=== PATIENT | male | born 1975 | race Caucasian/White ===

== ENCOUNTER → 2016-06-13 | Outpatient (CLI) | payer OTHER ==
[~2016-06-13] MED LIST: ACET500C; GABA600T3; HYDR-3716 PO; JANUVIA; JANUVIA OR; LIDO5DIS TD; LISI20TA5; LISINOPRIL/HCTZ; LISINOPRIL/HCTZ PO; LOPR100T OR; METF500T PO; NASAL SPRAY; NEUR300C OR; OXYCONTIN; PREG100CA; RYZOLT; SOMA250T; SOMA350T; SOMA350T PO; TRAM50TA2; TRAM50TA2 OR; VICO5TAB OR; tylenol pm OR
--- NOTE | 2016-06-20 00:35 | ECWPNPC ---
PATIENT NAME: PIERRE RIVAS : 1975 GENDER: MALE VISIT DATE: 06/13/2016 DISCHARGE DATE: 06/13/16 1205 VISIT LOCKED DATE TIME: PHYSICIAN: AKIRA MEDRANO RESOURCE: AKIRA MEDRANO REASON FOR APPOINTMENT 1. LOW BACK PAIN W/C HISTORY OF PRESENT ILLNESS HISTORY OF PRESENT ILLNESS: PAIN THE PATIENT DESCRIBES THE PAIN... 41 YEAR OLD MALE PATIENT WITH HISTORY OF CHRONIC BACK PAIN. PATIENT DESCRIBES THE PAIN TENDER, THROBBING, SORE, ACHING, HAVING IT ALL THE TIME WITH A PAIN SCORE OF 7-9/10. PATIENT WAS HURT IN A WORK RELATED INJURY IN 2003 WHILE WORKING FOR [employer] WHEN HE WAS SHOVELING STONES AND TWISTED AND HURT HIS BACK. SINCE THE ACCIDENT PATIENT HAS HAD 2 BACK SURGERIES WHICH HE STATES DID HELP WITH THE PAIN. MR. RIVAS ALSO RECEIVED PHYSICAL THERAPY IN WHICH HE SAW A BENEFIT. PATIENT IS CURRENTLY USING HYDROCODONE, LIDODERM PATCH, AND TRAMADOL WHICH HE STATES KEEPS HIM FUNCTIONAL AND HELPS WITH THE PAIN. MR. RIVAS STATES THAT HE WOULD LIKE TO MOVE FORWARD WITH AN INJECTION AT THIS TIME THE INJECTIONS AID SIGNIFICANTLY WITH PAIN RELIEF AND INCREASES THE PATIENTS MOBILITY AND FUNCTIONALITY. PATIENT DENIES UNEXPLAINABLE WEIGHT LOSS, FEVER, CHILLS, NEW CHANGES ON HIS URINARY OR BOWEL CONTROL. FALL RISK SCREENING: SCREENING :NO FALLS IN THE PAST YEAR CURRENT MEDICATIONS TAKING METFORMIN HCL 500 MG TABLET 1 TABLET WITH MEALS ORALLY TWICE A DAY, NOTES: 02-21-16 2100 TAKING LOPRESSOR 100 MG TABLET 1 TABLET ORALLY ONCE DAILY, NOTES: 02-21-16 2100 TAKING LISINOPRIL-HYDROCHLOROTHIAZIDE 20-12.5 MG TABLET 1 TABLET ORALLY ONCE A DAY, NOTES: 02-21-16 2100 TAKING NASAL SALINE 0.65 % SOLUTION 2 DROPS IN EACH NOSTRIL NEEDED NASALLY EVERY 2 HRS, NOTES: 02-22-16 TAKING TYLENOL PM EXTRA STRENGTH 500-25 MG TABLET 1 TABLET AT BEDTIME NEEDED ORALLY ONCE A DAY, NOTES: 02-21-16 2100 TAKING TRAMADOL HCL 50 MG TABLET 1-2 TAB ORALLY Q4-6 HR MDD 4, NOTES: 02-21-16 TAKING VALIUM 10 MG TABLET 1 TABLET NEEDED ORALLY 1 TAB 1HR PRE PROC. MDD1 TAKING OXYCODONE HCL 10 MG TABLET 3 ORALLY 3 TAB 1HR PRE PROC. MDD3 TAKING LIDODERM 5 % PATCH 1 PATCH TO INTACT SKIN REMOVE AFTER 12 HOURS EXTERNALLY LOW BACK ONCE A DAY ON12 HR OFF 12H, NOTES: COUPLE OF DAYS AGO TAKING HYDROCODONE-ACETAMINOPHEN 7.5-325 MG TABLET 1-2 ORALLY Q4-6H MDD8, NOTES: [id number] MEDICATION LIST REVIEWED AND RECONCILED WITH THE PATIENT PAST MEDICAL HISTORY POST LAMINECTOMY SYNDROME HYPERTENSION ALLERGIES CATS, RAGWEED SURGICAL HISTORY BACK SURGERY (2) CYST RENMOVED FROM LEFT WRIST 1992 REPAIR TESTICLE 1989 FAMILY HISTORY NO FAMILY HISTORY DOCUMENTED. SOCIAL HISTORY GENERAL: TOBACCO USE ARE YOU A:NONSMOKER LEARNING BARRIERS / SPECIAL NEEDS ORIENTED TO PLAN OF CARE: PATIENT, PAIN MANAGEMENT PATIENT, ORIENTED TO PLAN OF CARE: PATIENT, PAIN MANAGEMENT PATIENT. NEW PATIENT PAIN DIARY TODAY'S VISITNOTES FROM 0-10, WHAT LEVEL IS YOUR PAIN TODAY?0 PAIN CLINIC PFS, CLERGY, PUBLIC HEALTH REFERRALS PFS REFERRAL NEEDED?NO CLERGY REFERRAL NEEDED?NO PUBLIC HEALTH REFERRAL NEEDED?NO WAS THE PROVIDER NOTIFIED OF ANY PERTINENT INFO?NO PFS REFERRAL NEEDED?NO CLERGY REFERRAL NEEDED?NO PUBLIC HEALTH REFERRAL NEEDED?NO WAS THE PROVIDER NOTIFIED OF ANY PERTINENT INFO?NO HOSPITALIZATION/MAJOR DIAGNOSTIC PROCEDURE NO HOSPITALIZATION HISTORY. REVIEW OF SYSTEMS CONSTITUTIONAL: ANY CHANGE IN YOUR MEDICAL CONDITION? NO . CHILLS NO . FEVER NO . INFECTION: DO YOU HAVE NEW INFECTIONS? NO . DO YOU HAVE HISTORY OF MRSA? NO . MUSCULOSKELETAL: ANY NEW PATTERNS OF PAIN OR NUMBNESS? YES, AFTER FALLING WHEN LAID DOWN, HAD JOLT LIKE PAIN ACROSS LOW BACK. . GASTROENTEROLOGY: ANY NEW CHANGE IN BOWEL CONTROL? NO . GENITOURINARY: ANY NEW CHANGE IN BLADDER CONTROL? NO . IS THERE A CHANCE YOU COULD BE ? NO . HEMATOLOGY/LYMPH: DO YOU TAKE ANY BLOOD THINNERS? (FOR EXAMPLE- COUMADIN, PLAVIX, AGGRENOX, PLATEL, PRADAXA, OR XARELTO) NO . WHEN WAS YOUR LAST DOSE? DATE: TIME: . NEUROLOGY: HAVE YOU FALLEN IN THE PAST 6 MONTHS? YES, ON THE WEEKEND . ANY NEW EXTREMITY NUMBNESS OR WEAKNESS? NO . CARDIOLOGY: DO YOU HAVE A PACEMAKER OR DEFIBRILLATOR? NO . RESPIRATORY: HAVE YOU BEEN SICK IN THE PAST WEEK? NO . FEVER NO . FLU LIKE SYMPTOMS? NO . COUGH NO . INTEGUMENTARY: DO YOU HAVE ANY RASHES OR OPEN SORES? NO . ALLERGIC/IMMUNO: ARE YOU ALLERGIC TO SHELLFISH OR IV DYE? NO . ANY NEW ALLERGIES? NO . PSYCHIATRIC: DO YOU HAVE THOUGHTS OF HURTING YOURSELF OR SOMEONE ELSE? NO . ARE YOU ABUSED, NEGLECTED, OR IN AN UNSAFE ENVIRONMENT? NO . ENDOCRINOLOGY: ARE YOU DIABETIC? YES . OTHER: DO YOU NEED ANY PRESCRIPTIONS? YES . IF YES, PLEASE LIST: HYDROCODONE . ANY NEW PROBLEMS WITH YOUR MEDICATIONS? NO . WHEN DID YOU LAST EAT? ____ . WHEN DID YOU LAST DRINK? ____ . WHAT DID YOU LAST DRINK? ____ . NAME OF PERSON DRIVING YOU HOME? ____ . DO YOU HAVE ANY OTHER QUESTIONS OR CONCERNS NO . REVIEWED BY: PROVIDER: AKIRA MEDRANO MD . VITAL SIGNS WT 185 LBS, HT 71", BMI 25.80 INDEX, BP 137/80 MM HG, HR 86 /MIN, RR 16 /MIN, TEMP 96.1 F, OXYGEN SAT % 98%, NA INITIALS SC 09:56, REVIEWED BY: CM. EXAMINATION : PATIENT IS ALERT O X 3 AND COOPERATIVE. PATIENT WALKS WITH WIDE STANCE. PATIENT ABLE TO FLEX 20 DEGREES AND UNABLE TO EXTEND HIS BACK. TENDERNESS IN THE LOWER BACK AND PARASPINAL MUSCLE GROUP. BOTH LEGS VERY WEAK BUT RIGHT LEG IS WEAKER THEN THE LEFT AT EXTENSION AND FLEXION. PENDING LUMBAR MRI. ASSESSMENTS POST LAMINECTOMY SYNDROME - M96.1 (PRIMARY) SACROILIITIS, NOT ELSEWHERE CLASSIFIED - M46.1 TREATMENT POST LAMINECTOMY SYNDROME REFILL TRAMADOL HCL TABLET, 50 MG, 1-2 TAB, ORALLY, Q4-6 HR MDD 4, 30 DAY(S), 120, REFILLS 5, NOTES: 02-21-16 REFILL HYDROCODONE-ACETAMINOPHEN TABLET, 7.5-325 MG, 1-2, ORALLY, Q4-6H MDD8, 30 DAY(S), 240, REFILLS 0, NOTES: 02-21-16 2100 REFILL LIDODERM PATCH, 5 %, 1 PATCH TO INTACT SKIN REMOVE AFTER 12 HOURS, EXTERNALLY LOW BACK, ONCE A DAY ON12 HR OFF 12H, 30 DAY(S), 30, REFILLS 3, NOTES: COUPLE OF DAYS AGO NOTES: WE DISCUSSED SEVERAL ISSUES WITH MR. RIVAS'S PAIN MANAGEMENT CASE. AT THIS TIME THE PATIENT WILL RECEIVE A REFILL ON HIS MEDICATIONS AND CONTINUE WITH THE SAME MEDICATION REGIME. PATIENT DENIES ABUSE OF ANY MEDIATION, DENIES USE OF ILLEGAL SUBSTANCES, AND STATES THAT HE IS ONLY USING THE MEDICATION FOR PAIN MANAGEMENT. URINE TOXICOLOGY DONE ON 06/11/15 SHOWS CONSISTENT RESULTS WITH THE PATIENTS MEDICATION LIST. AT THIS TIME THE PATIENT WOULD LIKE TO MOVE FORWARD WITH INJECTIONS HE HAS SIGNIFICANT PAIN RELIEF. I WOULD LIKE THE PATIENT TO RECEIVE A LUMBAR MRI PRIOR TO DO ANY INJECTION. HOWEVER, BASED ON WHERE THE PATIENT STATES THAT HIS PAIN IS LOCATED I BELIEVE THE PATIENT WOULD BE A GOOD CANDIDATE FOR A SACROILIAC JOINT BLOCK. WE DISCUSSED THE RISKS, BENEFITS, AND ALTERNATIVES OF THE INJECTION AND THE PATIENT WOULD LIKE TO PROCEED. I WOULD ALSO LIKE THE PATIENT TO BEGIN PHYSICAL THERAPY DUE TO THE PATIENT STATING HE SAW A BENEFIT WHILE GOING TO PHYSICAL THERAPY. PATIENT WILL RETURN IN 3 WEEKS FOR A MEDICATION REFILL AND TO DISCUSS HOW THE PHYSICAL THERAPY HAS AIDED THE PATIENT IN PAIN RELIEF. INSTRUCTIONS WERE GIVEN, QUESTIONS WERE ANSWERED, PATIENT REPORTS UNDERSTANDING AND AGREES WITH THE PLAN. I, POLO BOSS, DOCUMENTED THE ABOVE INFORMATION ACTING A SCRIBE FOR DR. MEDRANO. I HAVE REVIEWED THE ABOVE DOCUMENT, WRITTEN BY POLO RICHARDSON AND I VERIFY THAT IT IS ACCURATE. OTHERS REFILL TYLENOL PM EXTRA STRENGTH TABLET, 500-25 MG, 1 TABLET AT BEDTIME NEEDED, ORALLY, ONCE A DAY, NOTES: 02-21-16 2100 PROCEDURES PN WORKMANS' COMP OPINION IN YOUR OPINION, WAS THE INCIDENT THAT THE PATIENT DESCRIBED THE COMPETENT MEDICAL CAUSE OF THIS INJURY/ILLNESS? YES ARE THE PATIENT'S COMPLAINTS CONSISTENT WITH HIS/HER HISTORY OF THE INJURY/ILLNESS? YES IS THE PATIENT'S HISTORY OF THE INJURY/ILLNESS CONSISTENT WITH YOUR OBJECTIVE FINDING? YES WHAT IS THE PERCENTAGE OF TEMPORARY IMPAIRMENT? MODERATE TO MARKED = 66.7% IS THE PATIENT WORKING? NO DOCTOR ON SITE: AKIRA PINK MD PROCEDURE CODES FA211 ESTABILISHED PATIENT [facility] FACILITY CHARGE G8427 DOC MEDS VERIFIED W/PT OR RE G8730 PAIN ASSESS POS TOOL F/U PLAN DOC FOLLOW UP 3 WEEKS ELECTRONICALLY SIGNED BY AKIRA MEDRANO MD ON 06/19/2016 AT 06:21 PM EST DISCLAIMER : THIS IS A VISIT SUMMARY EXTRACTED FROM THE [employer] CHART. IT IS NOT A COPY OF THE [employer] PROGRESS NOTE. KEMI
== END ==
LOC: M PAIN 09:40
PROVIDERS: ATTEND Anesthesiology
DX: Z09 Encounter for follow-up examination after completed treatment for conditions other than malignant neoplasm (principal); G89.29 Other chronic pain; M96.1 Postlaminectomy syndrome, not elsewhere classified; M46.1 Sacroiliitis, not elsewhere classified; I10 Essential (primary) hypertension; E11.9 Type 2 diabetes mellitus without complications; J30.1 Allergic rhinitis due to pollen; J30.81 Allergic rhinitis due to animal (cat) (dog) hair and dander; Z79.84 Long term (current) use of oral hypoglycemic drugs; Z79.891 Long term (current) use of opiate analgesic; Z79.899 Other long term (current) drug therapy

== ENCOUNTER → 2016-08-14 | Outpatient (CLI) | payer OTHER ==
--- NOTE | 2016-08-21 00:41 | ECWPNPC ---
PATIENT NAME: PIERRE RIVAS : 1975 GENDER: MALE VISIT DATE: 08/14/2016 DISCHARGE DATE: 08/14/16 1544 VISIT LOCKED DATE TIME: PHYSICIAN: AKIRA MEDRANO RESOURCE: AKIRA MEDRANO REASON FOR APPOINTMENT 1. W/C HISTORY OF PRESENT ILLNESS HISTORY OF PRESENT ILLNESS: PAIN THE PATIENT DESCRIBES THE PAIN... 41 YEAR OLD MALE PATIENT WITH HISTORY OF CHRONIC BACK PAIN. PATIENT DESCRIBES THE PAIN ACHING, SHARP, STABBING, TENDER, THROBBING, SORE, SHOOTING, AND HAVING IT ALL THE TIME WITH A PAIN SCORE OF 8/10 ON TODAY'S VISIT. 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 PATIENT REPORTS THAT HE HAS HAD TWO BACK SURGERIES ONE YEAR APART AND IT DOES NOT REALLY WORK, AND ONE OF THE SURGERIES HE HAD A HYBRID FUSION OF L4-L5. PATIENT REPORTS THAT HE HAS HAD PHYSICAL THERAPY IN THE PAST AND HE SAW AN IMPROVEMENT IN HIS QUALITY OF LIFE, PATIENT NOTES THAT DOING DAILY ACTIVITIES WAS EASIER WITH LESSER PAIN AND IN COMBINATION WITH INJECTIONS HE WAS ABLE TO DECREASE HIS MEDICATION INTAKE. PATIENT REPORTS THAT HE SOMETIMES HAS DIFFICULTIES SLEEP AT NIGHT AND STAYING ASLEEP. PATIENT STATES THAT SINCE WORKERS COMP HAS BEEN DENYING THE INJECTIONS HIS PAIN HAS INCREASED AND HIS MEDICATION INTAKE HAS GONE UP. PATIENT STATES THAT ONCE HE COULD GET INJECTIONS AGAIN, THE INJECTIONS GREATLY REDUCE HIS PAIN, HE WOULD LIKE TO BEGIN REDUCING HIS MEDICATIONS INTAKE. PATIENT REPORTS THAT HE HAS AN UPCOMING APPOINTMENT TO GET THE MRI DONE, BUT HE WAS INFORMED BY THE MRI FACILITY THAT HE NEEDS LAB WORK FIRST, DUE TO HIS DIABETES AND HIGH PRESSURE. PATIENT DENIES UNEXPLAINABLE WEIGHT LOSS, FEVER, CHILLS, NEW CHANGES ON HIS URINARY OR BOWEL CONTROL. FALL RISK SCREENING: SCREENING :NO FALLS IN THE PAST YEAR CURRENT MEDICATIONS TAKING METFORMIN HCL 500 MG TABLET 1 TABLET WITH MEALS ORALLY TWICE A DAY TAKING LOPRESSOR 100 MG TABLET 1 TABLET ORALLY ONCE DAILY TAKING LISINOPRIL-HYDROCHLOROTHIAZIDE 20-12.5 MG TABLET 1 TABLET ORALLY ONCE A DAY TAKING NASAL SALINE 0.65 % SOLUTION 2 DROPS IN EACH NOSTRIL NEEDED NASALLY EVERY 2 HRS TAKING TYLENOL PM EXTRA STRENGTH 500-25 MG TABLET 1 TABLET AT BEDTIME NEEDED ORALLY ONCE A DAY TAKING TRAMADOL HCL 50 MG TABLET 1-2 TAB ORALLY Q4-6 HR MDD 4 TAKING LIDODERM 5 % PATCH 1 PATCH TO INTACT SKIN REMOVE AFTER 12 HOURS EXTERNALLY LOW BACK ONCE A DAY ON12 HR OFF 12H TAKING HYDROCODONE-ACETAMINOPHEN 7.5-325 MG TABLET 1-2 ORALLY Q4-6H MDD8 NOT-TAKING VALIUM 10 MG TABLET 1 TABLET NEEDED ORALLY 1 TAB 1HR PRE PROC. MDD1 NOT-TAKING OXYCODONE HCL 10 MG TABLET 3 ORALLY 3 TAB 1HR PRE PROC. MDD3 MEDICATION LIST REVIEWED AND RECONCILED WITH THE PATIENT PAST MEDICAL HISTORY POST LAMINECTOMY SYNDROME HYPERTENSION ALLERGIES CATS, RAGWEED SURGICAL HISTORY BACK SURGERY (2) CYST RENMOVED FROM LEFT WRIST 1992 REPAIR TESTICLE 1989 FAMILY HISTORY NO FAMILY HISTORY DOCUMENTED. SOCIAL HISTORY GENERAL: TOBACCO USE ARE YOU A:NONSMOKER LEARNING BARRIERS / SPECIAL NEEDS ORIENTED TO PLAN OF CARE: PATIENT, PAIN MANAGEMENT PATIENT, ORIENTED TO PLAN OF CARE: PATIENT, PAIN MANAGEMENT PATIENT. NEW PATIENT PAIN DIARY TODAY'S VISITNOTES FROM 0-10, WHAT LEVEL IS YOUR PAIN TODAY?0 PAIN CLINIC PFS, CLERGY, PUBLIC HEALTH REFERRALS PFS REFERRAL NEEDED?NO CLERGY REFERRAL NEEDED?NO PUBLIC HEALTH REFERRAL NEEDED?NO WAS THE PROVIDER NOTIFIED OF ANY PERTINENT INFO?NO PFS REFERRAL NEEDED?NO CLERGY REFERRAL NEEDED?NO PUBLIC HEALTH REFERRAL NEEDED?NO WAS THE PROVIDER NOTIFIED OF ANY PERTINENT INFO?NO HOSPITALIZATION/MAJOR DIAGNOSTIC PROCEDURE NO HOSPITALIZATION HISTORY. REVIEW OF SYSTEMS CONSTITUTIONAL: ANY CHANGE IN YOUR MEDICAL CONDITION? NO . CHILLS NO . FEVER NO . INFECTION: DO YOU HAVE NEW INFECTIONS? NO . DO YOU HAVE HISTORY OF MRSA? NO . MUSCULOSKELETAL: ANY NEW PATTERNS OF PAIN OR NUMBNESS? NO . GASTROENTEROLOGY: ANY NEW CHANGE IN BOWEL CONTROL? NO . GENITOURINARY: ANY NEW CHANGE IN BLADDER CONTROL? NO . IS THERE A CHANCE YOU COULD BE ? NO . HEMATOLOGY/LYMPH: DO YOU TAKE ANY BLOOD THINNERS? (FOR EXAMPLE- COUMADIN, PLAVIX, AGGRENOX, PLATEL, PRADAXA, OR XARELTO) NO . WHEN WAS YOUR LAST DOSE? DATE: TIME: . NEUROLOGY: HAVE YOU FALLEN IN THE PAST 6 MONTHS? YES . ANY NEW EXTREMITY NUMBNESS OR WEAKNESS? NO . CARDIOLOGY: DO YOU HAVE A PACEMAKER OR DEFIBRILLATOR? NO . RESPIRATORY: HAVE YOU BEEN SICK IN THE PAST WEEK? NO . FEVER NO . FLU LIKE SYMPTOMS? NO . COUGH NO . INTEGUMENTARY: DO YOU HAVE ANY RASHES OR OPEN SORES? NO . ALLERGIC/IMMUNO: ARE YOU ALLERGIC TO SHELLFISH OR IV DYE? NO . ANY NEW ALLERGIES? NO . PSYCHIATRIC: DO YOU HAVE THOUGHTS OF HURTING YOURSELF OR SOMEONE ELSE? NO . ARE YOU ABUSED, NEGLECTED, OR IN AN UNSAFE ENVIRONMENT? NO . ENDOCRINOLOGY: ARE YOU DIABETIC? YES . OTHER: DO YOU NEED ANY PRESCRIPTIONS? YES . IF YES, PLEASE LIST: HYDROCODONE . ANY NEW PROBLEMS WITH YOUR MEDICATIONS? NO . WHEN DID YOU LAST EAT? ____ . WHEN DID YOU LAST DRINK? ____ . WHAT DID YOU LAST DRINK? ____ . NAME OF PERSON DRIVING YOU HOME? ____ . DO YOU HAVE ANY OTHER QUESTIONS OR CONCERNS NO . REVIEWED BY: PROVIDER: AKIRA MEDRANO MD . VITAL SIGNS WT 185.0 LBS, HT 71", BMI 25.80 INDEX, BP 141/97 MM HG, HR 76 /MIN, RR 16 /MIN, TEMP 98.7 F, OXYGEN SAT % 97, NA INITIALS TL 1334, REVIEWED BY: CM. EXAMINATION : PATIENT IS ALERT O X 3 AND COOPERATIVE. PATIENT HAS TENDERNESS IN THE SACROILIAC PARASPINAL MUSCLE GROUP. FABERE IS POSITIVE IN THE RIGHT AND LEFT LEGS. BOTH LEGS VERY WEAK BUT RIGHT LEG IS WEAKER THAN THE LEFT AT EXTENSION AND FLEXION. ASSESSMENTS POST LAMINECTOMY SYNDROME - M96.1 (PRIMARY) SACROILIITIS, NOT ELSEWHERE CLASSIFIED - M46.1 SHELTER (CURRENT) USE OF OPIATE ANALGESIC - Z79.891 TREATMENT POST LAMINECTOMY SYNDROME REFILL TRAMADOL HCL TABLET, 50 MG, 1-2 TAB, ORALLY, Q4-6 HR MDD 4, 30 DAY(S), 120, REFILLS 0 REFILL HYDROCODONE-ACETAMINOPHEN TABLET, 7.5-325 MG, 1-2, ORALLY, Q4-6H MDD8 PRN FOR PAIN, 30 DAY(S), 240, REFILLS 0 REFILL LIDODERM PATCH, 5 %, 1 PATCH TO INTACT SKIN REMOVE AFTER 12 HOURS, EXTERNALLY LOW BACK, ONCE A DAY ON12 HR OFF 12H, 30 DAY(S), 30, REFILLS 3 NOTES: WE DISCUSSED SEVERAL ISSUES WITH MR. RIVAS'S PAIN MANAGEMENT CASE. I WAS WITH THE PATIENT MORE THAN 35 MINUTES ON TODAY'S ENCOUNTER, MORE THAN HALF THE TIME WAS DEDICATED TO DISCUSSING ALTERNATIVES, COUNSELING, AND PAIN MEDICATION MANAGEMENT. PATIENT BROUGHT HIS MEDICATION BOTTLES ON TODAY'S VISIT. AT THIS TIME I WILL REFILL TRAMADOL, HYDROCODONE, AND LIDODERM PATCH TODAY, PATIENT IS USING THIS MEDICATIONS FOR SOMATIC PAIN. REVIEWED WITH PATIENT THE POTENTIAL RISK OF INCREASED SEDATION, RESPIRATORY SUPPRESSION AND WITH THE COMBINATION OF ALCOHOL, BENZODIAZEPINE, AND OPIOID MEDICATIONS. PATIENT STATES HE UNDERSTANDS THIS RISK AND WISHES TO CONTINUE WITH THERAPY. PATIENT STATES THAT HE IS USING THE MEDICATION INTENDED FOR PAIN MANAGEMENT. AFTER EXAMINING THE PATIENT SHE IS A GOOD CANDIDATE FOR A BILATERAL SIJ, WE DISCUSSED THE RISK, BENEFITS, AND ALTERNATIVES AND THE PATIENT WOULD LIKE TO PROCEED. PATIENT WILL BE BOOKED PENDING APPROVAL. I DISCUSSED WITH THE PATIENT IN DETAIL ABOUT THE POSSIBILITY OF A DCS, PATIENT STATED THAT HE IS INTERESTED AND WILL LIKE TO DO SOME RESEARCH INTO THIS AND DISCUSS IT WITH HIS . DUE TO PHYSICAL THERAPY HELPING THE PATIENT I WILL ORDER PT FOR HIM TODAY, I WOULD LIKE THE PATIENT TO DO IT FOR 6 WEEKS 3 TIMES A WEEK. INFORMED THE PATIENT THAT I WILL NEEDS TO REQUEST AUTHORIZATION FOR IT FIRST. UTOX DONE ON 06/12/2015 SHOWS CONSISTENT RESULTS WITH THAT WAS PRESCRIBED. I WILL ORDER ANOTHER UTOX FOR THE PATIENT TODAY. , INSTRUCTIONS WERE GIVEN, QUESTIONS WERE ANSWERED, PATIENT REPORTS UNDERSTANDING AND AGREES WITH THE PLAN. I, NICOLASA AVERY, DOCUMENTED THE ABOVE INFORMATION ACTING A SCRIBE FOR DR. MEDRANO. I HAVE REVIEWED THE ABOVE DOCUMENT, WRITTEN BY NICOLASA RICHARDSON AND I VERIFY THAT IT IS ACCURATE. PROCEDURES PN WORKMANS' COMP OPINION IN YOUR OPINION, WAS THE INCIDENT THAT THE PATIENT DESCRIBED THE COMPETENT MEDICAL CAUSE OF THIS INJURY/ILLNESS? YES ARE THE PATIENT'S COMPLAINTS CONSISTENT WITH HIS/HER HISTORY OF THE INJURY/ILLNESS? YES IS THE PATIENT'S HISTORY OF THE INJURY/ILLNESS CONSISTENT WITH YOUR OBJECTIVE FINDING? YES WHAT IS THE PERCENTAGE OF TEMPORARY IMPAIRMENT? MODERATE TO MARKED = 66.7% IS THE PATIENT WORKING? NO DOCTOR ON SITE: AKIRA PINK MD PROCEDURE CODES FA211 ESTABILISHED PATIENT [facility] FACILITY CHARGE G8730 PAIN ASSESS POS TOOL F/U PLAN DOC G8427 DOC MEDS VERIFIED W/PT OR RE DISPOSITION & COMMUNICATION FOLLOW UP [facility] PENDING APPROVAL ELECTRONICALLY SIGNED BY AKIRA MEDRANO MD ON 08/18/2016 AT 05:06 PM EDT DISCLAIMER : THIS IS A VISIT SUMMARY EXTRACTED FROM THE [employer] CHART. IT IS NOT A COPY OF THE [employer] PROGRESS NOTE. KEMI
== END | disposition home or self-care (01) ==
LOC: M PAIN 13:20
PROVIDERS: ATTEND Anesthesiology
DX: Z09 Encounter for follow-up examination after completed treatment for conditions other than malignant neoplasm (principal); G89.29 Other chronic pain; M96.1 Postlaminectomy syndrome, not elsewhere classified; M46.1 Sacroiliitis, not elsewhere classified; I10 Essential (primary) hypertension; E11.9 Type 2 diabetes mellitus without complications; Z79.899 Other long term (current) drug therapy; Z79.84 Long term (current) use of oral hypoglycemic drugs

== ENCOUNTER → 2016-08-15 | Outpatient (CLI) | payer OTHER, MEDICARE ==
[2016-08-15 12:15] LABS: BLOOD UREA NITROGEN 12 MG/DL (7-18); CREATININE FOR GFR 0.89 MG/DL (0.70-1.30); DIGOXIN LEVEL 0.1 NG/ML (0.5-2.0); GLOMERULAR FILTRATION RATE > 60.0 (>60)
== END ==
LOC: M LAB 10:52
PROVIDERS: ATTEND Anesthesiology
DX: Z79.01 Long term (current) use of anticoagulants (principal)

== ENCOUNTER → 2016-11-14 | Outpatient (CLI) | payer OTHER ==
[~2016-11-14] MED LIST changes: -METF500T PO; +METF500T13 PO
--- NOTE | 2016-11-25 23:34 | ECWPNPC ---
PATIENT NAME: PIERRE RIVAS : 1975 GENDER: MALE VISIT DATE: 11/14/2016 DISCHARGE DATE: 11/14/16 1623 VISIT LOCKED DATE TIME: PHYSICIAN: AKIRA MEDRANO RESOURCE: AKIRA MEDRANO REASON FOR APPOINTMENT 1. WC HISTORY OF PRESENT ILLNESS GENERAL: 41 YEAR OLD MALE PATIENT WITH HISTORY OF CHRONIC BACK PAIN. PATIENT DESCRIBES THE PAIN ACHING, SHARP, STABBING, TENDER, THROBBING, SORE, SHOOTING, AND HAVING IT ALL THE TIME WITH A PAIN SCORE OF 7-8/10 ON TODAY'S VISIT. PATIENT WAS INJURED IN A WORK RELATED INJURY ON 03-06-2004 WORKING FOR [employer], A [employer], PATIENT WAS SHOVELING STONES INJURING HIS BACK. PATIENT REPORTS THAT HE HAS HAD TWO BACK SURGERIES ONE YEAR APART AND IT DOES NOT REALLY WORK, AND ONE OF THE SURGERIES HE HAD A HYBRID FUSION OF L4-L5. PATIENT REPORTS THAT HE HAS TRIED PHYSICAL THERAPY IN THE PAST AND IN COMBINATION WITH INJECTIONS HE PAIN LEVEL DECREASED WITH AN INCREASED IN MOBILITY AND FUNCTIONALITY AND A DECREASED IN HIS MEDICATION INTAKE. PATIENT REPORTS THAT HE USES A TENS UNIT AT HOME, BUT THE DEVICE IS STARTING TO FAIL. PATIENT DENIES UNEXPLAINABLE WEIGHT LOSS, FEVER, CHILLS, NEW CHANGES ON HIS URINARY OR BOWEL CONTROL. HISTORY OF PRESENT ILLNESS: PAIN THE PATIENT DESCRIBES THE PAIN... FALL RISK SCREENING: SCREENING :NO FALLS IN THE PAST YEAR CURRENT MEDICATIONS TAKING METFORMIN HCL 500 MG TABLET 1 TABLET WITH MEALS ORALLY TWICE A DAY TAKING LOPRESSOR 100 MG TABLET 1 TABLET ORALLY ONCE DAILY TAKING LISINOPRIL-HYDROCHLOROTHIAZIDE 20-12.5 MG TABLET 1 TABLET ORALLY ONCE A DAY TAKING NASAL SALINE 0.65 % SOLUTION 2 DROPS IN EACH NOSTRIL NEEDED NASALLY EVERY 2 HRS TAKING TYLENOL PM EXTRA STRENGTH 500-25 MG TABLET 1 TABLET AT BEDTIME NEEDED ORALLY ONCE A DAY TAKING LIDODERM 5 % PATCH 1 PATCH TO INTACT SKIN REMOVE AFTER 12 HOURS EXTERNALLY LOW BACK ONCE A DAY ON12 HR OFF 12H TAKING TRAMADOL HCL 50 MG TABLET 1-2 TAB ORALLY Q4-6 HR MDD 4 TAKING HYDROCODONE-ACETAMINOPHEN 7.5-325 MG TABLET 1-2 ORALLY Q4-6H MDD8 PRN FOR PAIN NOT-TAKING VALIUM 10 MG TABLET 1 TABLET NEEDED ORALLY 1 TAB 1HR PRE PROC. MDD1 NOT-TAKING OXYCODONE HCL 10 MG TABLET 3 ORALLY 3 TAB 1HR PRE PROC. MDD3 PAST MEDICAL HISTORY POST LAMINECTOMY SYNDROME HYPERTENSION ALLERGIES CATS, RAGWEED SURGICAL HISTORY BACK SURGERY (2) CYST RENMOVED FROM LEFT WRIST 1992 REPAIR TESTICLE 1989 FAMILY HISTORY NO FAMILY HISTORY DOCUMENTED. SOCIAL HISTORY GENERAL: TOBACCO USE ARE YOU A:NONSMOKER LEARNING BARRIERS / SPECIAL NEEDS ORIENTED TO PLAN OF CARE: PATIENT, PAIN MANAGEMENT PATIENT, ORIENTED TO PLAN OF CARE: PATIENT, PAIN MANAGEMENT PATIENT. NEW PATIENT PAIN DIARY TODAY'S VISITNOTES FROM 0-10, WHAT LEVEL IS YOUR PAIN TODAY?0 PAIN CLINIC PFS, CLERGY, PUBLIC HEALTH REFERRALS PFS REFERRAL NEEDED?NO CLERGY REFERRAL NEEDED?NO PUBLIC HEALTH REFERRAL NEEDED?NO WAS THE PROVIDER NOTIFIED OF ANY PERTINENT INFO?NO PFS REFERRAL NEEDED?NO CLERGY REFERRAL NEEDED?NO PUBLIC HEALTH REFERRAL NEEDED?NO WAS THE PROVIDER NOTIFIED OF ANY PERTINENT INFO?NO HOSPITALIZATION/MAJOR DIAGNOSTIC PROCEDURE NO HOSPITALIZATION HISTORY. REVIEW OF SYSTEMS REVIEWED BY: PROVIDER: . CONSTITUTIONAL: ANY CHANGE IN YOUR MEDICAL CONDITION? NO . CHILLS NO . FEVER NO . INFECTION: DO YOU HAVE NEW INFECTIONS? NO . DO YOU HAVE HISTORY OF MRSA? NO . MUSCULOSKELETAL: ANY NEW PATTERNS OF PAIN OR NUMBNESS? NO . GASTROENTEROLOGY: ANY NEW CHANGE IN BOWEL CONTROL? NO . GENITOURINARY: ANY NEW CHANGE IN BLADDER CONTROL? NO . IS THERE A CHANCE YOU COULD BE ? NO . HEMATOLOGY/LYMPH: DO YOU TAKE ANY BLOOD THINNERS? (FOR EXAMPLE- COUMADIN, PLAVIX, AGGRENOX, PLATEL, PRADAXA, OR XARELTO) NO . WHEN WAS YOUR LAST DOSE? DATE: TIME: . NEUROLOGY: HAVE YOU FALLEN IN THE PAST 6 MONTHS? NO . ANY NEW EXTREMITY NUMBNESS OR WEAKNESS? NO . CARDIOLOGY: DO YOU HAVE A PACEMAKER OR DEFIBRILLATOR? NO . RESPIRATORY: HAVE YOU BEEN SICK IN THE PAST WEEK? NO . FEVER NO . FLU LIKE SYMPTOMS? NO . COUGH NO . INTEGUMENTARY: DO YOU HAVE ANY RASHES OR OPEN SORES? NO . ALLERGIC/IMMUNO: ARE YOU ALLERGIC TO SHELLFISH OR IV DYE? NO . ANY NEW ALLERGIES? NO . PSYCHIATRIC: DO YOU HAVE THOUGHTS OF HURTING YOURSELF OR SOMEONE ELSE? NO . ARE YOU ABUSED, NEGLECTED, OR IN AN UNSAFE ENVIRONMENT? NO . ENDOCRINOLOGY: ARE YOU DIABETIC? NO . OTHER: DO YOU NEED ANY PRESCRIPTIONS? YEW NEEDS TRAMADOL HYDROCODONE LIDODERM PATCHES . IF YES, PLEASE LIST: ____ . ANY NEW PROBLEMS WITH YOUR MEDICATIONS? NO . WHEN DID YOU LAST EAT? ____ . WHEN DID YOU LAST DRINK? ____ . WHAT DID YOU LAST DRINK? ____ . NAME OF PERSON DRIVING YOU HOME? ____ . DO YOU HAVE ANY OTHER QUESTIONS OR CONCERNS NO . VITAL SIGNS WT 192.8 LBS, HT 71", BMI 26.89 INDEX, BP 124/93 MM HG, HR 66 /MIN, RR 18 /MIN, TEMP 97.5 F, OXYGEN SAT % 97%, NA INITIALS TR 1523, REVIEWED BY: KG. EXAMINATION GENERAL: PATIENT IS ALERT O X 3 AND COOPERATIVE. THERE IS TENDERNESS IN THE SACROILIAC JOINT AREA. FABERE TEST IS POSITIVE IN BOTH LEGS,SLIGHTLY MORE IN THE RIGHT SIDE. ASSESSMENTS POST LAMINECTOMY SYNDROME - M96.1 (PRIMARY) SACROILIITIS, NOT ELSEWHERE CLASSIFIED - M46.1 TREATMENT POST LAMINECTOMY SYNDROME REFILL LIDODERM PATCH, 5 %, 1 PATCH TO INTACT SKIN REMOVE AFTER 12 HOURS, EXTERNALLY LOW BACK, ONCE A DAY ON12 HR OFF 12H, 30 DAY(S), 30, REFILLS 3 REFILL TRAMADOL HCL TABLET, 50 MG, 1-2 TAB, ORALLY, Q4-6 HR MDD 4, 30 DAY(S), 120, REFILLS 0 REFILL HYDROCODONE-ACETAMINOPHEN TABLET, 7.5-325 MG, 1-2, ORALLY, Q4-6H MDD8 PRN FOR PAIN, 30 DAY(S), 240, REFILLS 0 NOTES: WE DISCUSSED SEVERAL ISSUES WITH MR. RIVAS'S PAIN MANAGEMENT CASE. PATIENT BROUGHT HIS MEDICATION BOTTLES ON TODAY'S VISIT. AT THIS TIME I WILL REFILL TRAMADOL, HYDROCODONE, AND LIDODERM PATCH TODAY, PATIENT IS USING THESE MEDICATIONS FOR SOMATIC PAIN. LOOKING THROUGH THE PATIENT'S INJECTION HISTORY HE HAS NOT YET HAD AN SIJ. AFTER EXAMINING THE PATIENT HE IS A GOOD CANDIDATE FOR A BILATERAL SACROILIAC JOINT INJECTION. WE DISCUSSED THE RISK, BENEFITS, AND ALTERNATIVES AND THE PATIENT WOULD LIKE TO PROCEED. PATIENT WILL BE BOOKED PENDING APPROVAL. WITH THE TEN UNITS DEVICE OF THE PATIENT FAILING I WILL WRITE HIM A SCRIPT FOR ANOTHER ONE. I DISCUSSED WITH THE PATIENT THAT PHYSICAL THERAPY HAS BEEN APPROVED FOR HIM. I DISCUSSED WITH THE PATIENT AFTER DOING INJECTIONS AND PHYSICAL THERAPY ONE OF OUR GOALS IS TO DECREASING HIS MEDICATION INTAKE IF POSSIBLE. PATIENT AGREES WITH THE PLAN. UTOX DONE ON 08/19/2016 SHOWS CONSISTENT RESULTS WITH THAT WAS PRESCRIBED. INSTRUCTIONS WERE GIVEN, QUESTIONS WERE ANSWERED, PATIENT REPORTS UNDERSTANDING AND AGREES WITH THE PLAN. I, NICOLASA AVERY, DOCUMENTED THE ABOVE INFORMATION ACTING A SCRIBE FOR DR. MEDRANO. I HAVE REVIEWED THE ABOVE DOCUMENT, WRITTEN BY NICOLASA AVERY SCRIBE AND I VERIFY THAT IT IS ACCURATE. PROCEDURES PN WORKMANS' COMP OPINION IN YOUR OPINION, WAS THE INCIDENT THAT THE PATIENT DESCRIBED THE COMPETENT MEDICAL CAUSE OF THIS INJURY/ILLNESS? YES ARE THE PATIENT'S COMPLAINTS CONSISTENT WITH HIS/HER HISTORY OF THE INJURY/ILLNESS? YES IS THE PATIENT'S HISTORY OF THE INJURY/ILLNESS CONSISTENT WITH YOUR OBJECTIVE FINDING? YES WHAT IS THE PERCENTAGE OF TEMPORARY IMPAIRMENT? MODERATE TO MARKED = 66.7% IS THE PATIENT WORKING? NO DOCTOR ON SITE: AKIRA PINK MD PROCEDURE CODES FA211 ESTABILISHED PATIENT [facility] FACILITY CHARGE G8730 PAIN ASSESS POS TOOL F/U PLAN DOC G8427 DOC MEDS VERIFIED W/PT OR RE DISPOSITION & COMMUNICATION FOLLOW UP 6 WEEKS ELECTRONICALLY SIGNED BY AKIRA MEDRANO MD ON 11/25/2016 AT 09:59 PM EDT DISCLAIMER : THIS IS A VISIT SUMMARY EXTRACTED FROM THE [employer] CHART. IT IS NOT A COPY OF THE [employer] PROGRESS NOTE. KEMI
== END | disposition home or self-care (01) ==
LOC: M PAIN 14:00
PROVIDERS: ATTEND Anesthesiology
DX: G89.29 Other chronic pain (principal); M96.1 Postlaminectomy syndrome, not elsewhere classified; M46.1 Sacroiliitis, not elsewhere classified; I10 Essential (primary) hypertension; Z79.899 Other long term (current) drug therapy; Z79.84 Long term (current) use of oral hypoglycemic drugs; J30.1 Allergic rhinitis due to pollen; J30.81 Allergic rhinitis due to animal (cat) (dog) hair and dander

== ENCOUNTER → 2017-02-13 | Outpatient (CLI) | payer OTHER ==
--- NOTE | 2017-03-09 00:06 | ECWPNPC ---
PATIENT NAME: PIERRE RIVAS : 1975 GENDER: MALE VISIT DATE: 02/13/2017 DISCHARGE DATE: 02/13/17 1336 VISIT LOCKED DATE TIME: PHYSICIAN: STANISLAV MIDDLETON RESOURCE: STANISLAV MIDDLETON REASON FOR APPOINTMENT 1. W/C HISTORY OF PRESENT ILLNESS HISTORY OF PRESENT ILLNESS: HERE FOR F/U OF CHRONIC LBP AND BILATERAL LEG PAIN.RATING PAIN VAS 8/10.PAIN IS LOCATED ACROSS LOW BACK AND RADIATES DOWN LEFT LEG.THIS IS A WORK RELATED INJURY W DOI:2003 .CURRENTLY USING HYDROCODONE 7.5/325 UP TO 8 TAB PER DAY PRN FOR SEVERE PAIN,TRAMADOL 50MG 2 TAB UP TO 6 PER DAY,AND LIDODERM PATCH PRN FOR SEVERE PAIN.REPORTS MEDICATION IS EFFECTIVE AT REDUCING PAIN AND KEEPING HIM COMFORTABLE.DENIES SIDE EFFECTS. PAIN THE PATIENT DESCRIBES THE PAIN... THE PATIENT DESCRIBES THE PAIN... FALL RISK SCREENING: SCREENING :NO FALLS IN THE PAST YEAR CURRENT MEDICATIONS TAKING METFORMIN HCL 500 MG TABLET 1 TABLET WITH MEALS ORALLY TWICE A DAY TAKING LOPRESSOR 100 MG TABLET 1 TABLET ORALLY ONCE DAILY TAKING LISINOPRIL-HYDROCHLOROTHIAZIDE 20-12.5 MG TABLET 1 TABLET ORALLY ONCE A DAY TAKING NASAL SALINE 0.65 % SOLUTION 2 DROPS IN EACH NOSTRIL NEEDED NASALLY EVERY 2 HRS TAKING TYLENOL PM EXTRA STRENGTH 500-25 MG TABLET 1 TABLET AT BEDTIME NEEDED ORALLY ONCE A DAY TAKING TRAMADOL HCL 50 MG TABLET 1-2 TAB ORALLY Q4-6 HR MDD 4 TAKING LIDODERM 5 % PATCH 1 PATCH TO INTACT SKIN REMOVE AFTER 12 HOURS EXTERNALLY LOW BACK ONCE A DAY ON12 HR OFF 12H TAKING HYDROCODONE-ACETAMINOPHEN 7.5-325 MG TABLET 1-2 ORALLY Q4-6H MDD8 PRN FOR PAIN NOT-TAKING VALIUM 10 MG TABLET 1 TABLET NEEDED ORALLY 1 TAB 1HR PRE PROC. MDD1 NOT-TAKING OXYCODONE HCL 10 MG TABLET 3 ORALLY 3 TAB 1HR PRE PROC. MDD3 MEDICATION LIST REVIEWED AND RECONCILED WITH THE PATIENT PAST MEDICAL HISTORY POST LAMINECTOMY SYNDROME HYPERTENSION ALLERGIES CATS, RAGWEED REVIEW OF SYSTEMS REVIEWED BY: PROVIDER: STANISLAV KHAN . CONSTITUTIONAL: ANY CHANGE IN YOUR MEDICAL CONDITION? NO . CHILLS NO . FEVER NO . INFECTION: DO YOU HAVE NEW INFECTIONS? NO . DO YOU HAVE HISTORY OF MRSA? NO . MUSCULOSKELETAL: ANY NEW PATTERNS OF PAIN OR NUMBNESS? NO . GASTROENTEROLOGY: ANY NEW CHANGE IN BOWEL CONTROL? NO . GENITOURINARY: ANY NEW CHANGE IN BLADDER CONTROL? NO . IS THERE A CHANCE YOU COULD BE ? NO . HEMATOLOGY/LYMPH: DO YOU TAKE ANY BLOOD THINNERS? (FOR EXAMPLE- COUMADIN, PLAVIX, AGGRENOX, PLATEL, PRADAXA, OR XARELTO) NO . WHEN WAS YOUR LAST DOSE? DATE: TIME: . NEUROLOGY: HAVE YOU FALLEN IN THE PAST 6 MONTHS? YES . ANY NEW EXTREMITY NUMBNESS OR WEAKNESS? NO . CARDIOLOGY: DO YOU HAVE A PACEMAKER OR DEFIBRILLATOR? NO . RESPIRATORY: HAVE YOU BEEN SICK IN THE PAST WEEK? NO . FEVER NO . FLU LIKE SYMPTOMS? NO . COUGH NO . INTEGUMENTARY: DO YOU HAVE ANY RASHES OR OPEN SORES? NO . ALLERGIC/IMMUNO: ARE YOU ALLERGIC TO SHELLFISH OR IV DYE? NO . ANY NEW ALLERGIES? NO . PSYCHIATRIC: DO YOU HAVE THOUGHTS OF HURTING YOURSELF OR SOMEONE ELSE? NO . ARE YOU ABUSED, NEGLECTED, OR IN AN UNSAFE ENVIRONMENT? NO . ENDOCRINOLOGY: ARE YOU DIABETIC? YES . OTHER: DO YOU NEED ANY PRESCRIPTIONS? YES . IF YES, PLEASE LIST: TRAMADOL, HYDROCODONE . ANY NEW PROBLEMS WITH YOUR MEDICATIONS? NO . WHEN DID YOU LAST EAT? ____ . WHEN DID YOU LAST DRINK? ____ . WHAT DID YOU LAST DRINK? ____ . NAME OF PERSON DRIVING YOU HOME? ____ . DO YOU HAVE ANY OTHER QUESTIONS OR CONCERNS NO . VITAL SIGNS WT 189 LBS, HT 71", BMI 26.36 INDEX, BP 153/95 MM HG, HR 80 /MIN, RR 16 /MIN, TEMP 98.4 F, OXYGEN SAT % 97%, REVIEWED BY: CM [id number]. EXAMINATION GENERAL EXAMINATION: LUNGS:LUNG SOUNDS ARE CLEAR. HEART:HEART RATE REGULAR. MUSCULOSKELETAL:*NORMAL STEADY GAIT. MUSCLE STRENGTH 5/5 BILAT LOWER EXTREMITIES. PALPATION:TENDER OVER L/S SPINE AND L/S PARASPINALS BILAT.. ASSESSMENTS POST LAMINECTOMY SYNDROME - M96.1 (PRIMARY) CHRONIC PRESCRIPTION OPIATE USE - Z79.891 TREATMENT POST LAMINECTOMY SYNDROME REFILL HYDROCODONE-ACETAMINOPHEN TABLET, 7.5-325 MG, 1-2, ORALLY, Q4-6H MDD8 PRN FOR PAIN, 30 DAY(S), 240, REFILLS 0 REFILL TRAMADOL HCL TABLET, 50 MG, 1-2 TAB, ORALLY, Q4-6 HR MDD 4, 30 DAY(S), 120, REFILLS 0 REFILL LIDODERM PATCH, 5 %, 1 PATCH TO INTACT SKIN REMOVE AFTER 12 HOURS, EXTERNALLY LOW BACK, ONCE A DAY ON12 HR OFF 12H, 30 DAY(S), 30, REFILLS 3 NOTES: ISTOP REGISTRY REVIEWED [id number] RISKS AND BENEFITS OF NARCOTIC/OPIOD MEDICATIONS WERE REVIEWED WITH PATIENT - THIS INCLUDES BUT IS NOT LIMITED TO RISK OF DEPENDANCE/DEVELOPMENT OF ADDICTION, MOOD DISTURBANCE AND DEPRESSION, OSTEOPOROSIS, HORMONAL AND LABIDAL CHANGES, RESPIRATORY DEPRESSION AND . PATIENT IS ADVISED NOT TO DRIVE WHILE ON THESE MEDICATIONS, AND DEMNOSTRATES COMPLLIANCE. BRINGS IN MEDICATIONS WHICH IS APPROPRIATE FOR WHAT WAS DISPENSED. RECENT URINE TOXICOLOGY REVIEWED. NO UNAUTHORIZED MEDICATIONS. NO ILLICIT SUBSTANCES AND PRESCRIBED MEDICATIONS WERE PRESENT. PROCEDURES PN WORKMANS' COMP OPINION IN YOUR OPINION, WAS THE INCIDENT THAT THE PATIENT DESCRIBED THE COMPETENT MEDICAL CAUSE OF THIS INJURY/ILLNESS? YES ARE THE PATIENT'S COMPLAINTS CONSISTENT WITH HIS/HER HISTORY OF THE INJURY/ILLNESS? YES IS THE PATIENT'S HISTORY OF THE INJURY/ILLNESS CONSISTENT WITH YOUR OBJECTIVE FINDING? YES WHAT IS THE PERCENTAGE OF TEMPORARY IMPAIRMENT? MODERATE TO MARKED = 66.7% IS THE PATIENT WORKING? NO DOCTOR ON SITE: AKIRA PINK MD PROCEDURE CODES FA211 ESTABILISHED PATIENT [facility] FACILITY CHARGE DISPOSITION & COMMUNICATION FOLLOW UP 4 WEEKS ELECTRONICALLY SIGNED BY ERIN FLORENCE ON 03/08/2017 AT 07:02 PM EDT DISCLAIMER : THIS IS A VISIT SUMMARY EXTRACTED FROM THE [employer] CHART. IT IS NOT A COPY OF THE [employer] PROGRESS NOTE. KEMI
== END ==
LOC: M PAIN 11:15
PROVIDERS: ATTEND Nurse Practitioner Family
DX: M96.1 Postlaminectomy syndrome, not elsewhere classified (principal); M54.5 Low back pain; G89.29 Other chronic pain; I10 Essential (primary) hypertension; Z79.891 Long term (current) use of opiate analgesic; Z79.899 Other long term (current) drug therapy; Z79.84 Long term (current) use of oral hypoglycemic drugs; J30.81 Allergic rhinitis due to animal (cat) (dog) hair and dander; J30.2 Other seasonal allergic rhinitis

== ENCOUNTER → 2017-03-16 | Outpatient (CLI) | payer OTHER ==
--- NOTE | 2017-04-11 23:27 | ECWPNPC ---
PATIENT NAME: PIERRE RIVAS : 1975 GENDER: MALE VISIT DATE: 03/16/2017 DISCHARGE DATE: 03/16/17 1223 VISIT LOCKED DATE TIME: PHYSICIAN: STANISLAV MIDDLETON RESOURCE: STANISLAV MIDDLETON REASON FOR APPOINTMENT 1. W/C BACK HISTORY OF PRESENT ILLNESS HISTORY OF PRESENT ILLNESS: HERE FOR F/U OF CHRONIC LBP AND BILATERAL LEG PAIN.RATING PAIN VAS 6/10.PAIN IS LOCATED ACROSS LOW BACK AND RADIATES DOWN LEFT LEG.THIS IS A WORK RELATED INJURY W DOI:2003 .CURRENTLY USING HYDROCODONE 7.5/325 UP TO 8 TAB PER DAY PRN FOR SEVERE PAIN,TRAMADOL 50MG 2 TAB UP TO 6 PER DAY,AND LIDODERM PATCH PRN FOR SEVERE PAIN.REPORTS MEDICATION IS EFFECTIVE AT REDUCING PAIN AND KEEPING HIM COMFORTABLE.DENIES SIDE EFFECTS. PAIN THE PATIENT DESCRIBES THE PAIN... THE PATIENT DESCRIBES THE PAIN... THE PATIENT DESCRIBES THE PAIN... FALL RISK SCREENING: SCREENING :NO FALLS IN THE PAST YEAR CURRENT MEDICATIONS TAKING METFORMIN HCL 500 MG TABLET 1 TABLET WITH MEALS ORALLY TWICE A DAY TAKING LOPRESSOR 100 MG TABLET 1 TABLET ORALLY ONCE DAILY TAKING LISINOPRIL-HYDROCHLOROTHIAZIDE 20-12.5 MG TABLET 1 TABLET ORALLY ONCE A DAY TAKING NASAL SALINE 0.65 % SOLUTION 2 DROPS IN EACH NOSTRIL NEEDED NASALLY EVERY 2 HRS TAKING TYLENOL PM EXTRA STRENGTH 500-25 MG TABLET 1 TABLET AT BEDTIME NEEDED ORALLY ONCE A DAY TAKING LIDODERM 5 % PATCH 1 PATCH TO INTACT SKIN REMOVE AFTER 12 HOURS EXTERNALLY LOW BACK ONCE A DAY ON12 HR OFF 12H TAKING TRAMADOL HCL 50 MG TABLET 1-2 TAB ORALLY Q4-6 HR MDD 4 TAKING HYDROCODONE-ACETAMINOPHEN 7.5-325 MG TABLET 1-2 ORALLY Q4-6H MDD8 PRN FOR PAIN UNKNOWN VALIUM 10 MG TABLET 1 TABLET NEEDED ORALLY 1 TAB 1HR PRE PROC. MDD1 UNKNOWN OXYCODONE HCL 10 MG TABLET 3 ORALLY 3 TAB 1HR PRE PROC. MDD3 MEDICATION LIST REVIEWED AND RECONCILED WITH THE PATIENT PAST MEDICAL HISTORY POST LAMINECTOMY SYNDROME HYPERTENSION ALLERGIES CATS, RAGWEED SURGICAL HISTORY BACK SURGERY (2) CYST RENMOVED FROM LEFT WRIST 1992 REPAIR TESTICLE 1989 SOCIAL HISTORY GENERAL: TOBACCO USE ADDITIONAL FINDINGS: TOBACCO USER SMOKES CIGARS AND NOT READY TO QUIT CHURCH [id number] NONE NO MORMON BELIEFS THAT WOULD IMPACT HEALTH CARE. LEARNING BARRIERS / SPECIAL NEEDS BARRIERS TO LEARNING?NO HEARING IMPAIRED?NO VISION IMPAIRED?NO COGNITIVELY IMPAIRED?NO READINESS TO LEARN?YES LEARNING PREFERENCES?NO LEARNING CAPABILITIES PRESENT?YES EMOTIONAL BARRIERS?NO NEW PATIENT PAIN DIARY TODAY'S VISITNOTES FROM 0-10, WHAT LEVEL IS YOUR PAIN TODAY?0 PAIN CLINIC PFS, CLERGY, PUBLIC HEALTH REFERRALS PFS REFERRAL NEEDED?NO CLERGY REFERRAL NEEDED?NO PUBLIC HEALTH REFERRAL NEEDED?NO WAS THE PROVIDER NOTIFIED OF ANY PERTINENT INFO?NO HAS THE PATIENT BEEN EDUCATED REGARDING HIS/HER PLAN OF CARE?YES HAS THE PATIENT BEEN EDUCATED REGARDING PAIN, THE RISK FOR PAIN, THE IMPORTANCE OF EFFECTIVE PAIN MANAGEMENT, AND THE PAIN ASSESSMENT PROCESS?YES REVIEW OF SYSTEMS REVIEWED BY: PROVIDER: STANISLAV KHAN . CONSTITUTIONAL: ANY CHANGE IN YOUR MEDICAL CONDITION? NO . CHILLS NO . FEVER NO . INFECTION: DO YOU HAVE NEW INFECTIONS? NO . DO YOU HAVE HISTORY OF MRSA? NO . MUSCULOSKELETAL: ANY NEW PATTERNS OF PAIN OR NUMBNESS? NO . GASTROENTEROLOGY: ANY NEW CHANGE IN BOWEL CONTROL? NO . GENITOURINARY: ANY NEW CHANGE IN BLADDER CONTROL? NO . IS THERE A CHANCE YOU COULD BE ? NO . HEMATOLOGY/LYMPH: DO YOU TAKE ANY BLOOD THINNERS? (FOR EXAMPLE- COUMADIN, PLAVIX, AGGRENOX, PLATEL, PRADAXA, OR XARELTO) NO . WHEN WAS YOUR LAST DOSE? DATE: TIME: . NEUROLOGY: HAVE YOU FALLEN IN THE PAST 6 MONTHS? YES 2 MONTHS AGO ON [place] . ANY NEW EXTREMITY NUMBNESS OR WEAKNESS? NO . CARDIOLOGY: DO YOU HAVE A PACEMAKER OR DEFIBRILLATOR? NO . RESPIRATORY: HAVE YOU BEEN SICK IN THE PAST WEEK? NO . FEVER NO . FLU LIKE SYMPTOMS? NO . COUGH NO . INTEGUMENTARY: DO YOU HAVE ANY RASHES OR OPEN SORES? NO . ALLERGIC/IMMUNO: ARE YOU ALLERGIC TO SHELLFISH OR IV DYE? NO . ANY NEW ALLERGIES? NO . PSYCHIATRIC: DO YOU HAVE THOUGHTS OF HURTING YOURSELF OR SOMEONE ELSE? NO . ARE YOU ABUSED, NEGLECTED, OR IN AN UNSAFE ENVIRONMENT? NO . ENDOCRINOLOGY: ARE YOU DIABETIC? YES . OTHER: DO YOU NEED ANY PRESCRIPTIONS? NO . IF YES, PLEASE LIST: ____ . ANY NEW PROBLEMS WITH YOUR MEDICATIONS? NO . WHEN DID YOU LAST EAT? ____ . WHEN DID YOU LAST DRINK? ____ . WHAT DID YOU LAST DRINK? ____ . NAME OF PERSON DRIVING YOU HOME? ____ . DO YOU HAVE ANY OTHER QUESTIONS OR CONCERNS NO . VITAL SIGNS WT 185 LBS, HT 71", BMI 25.80 INDEX, BP 154/85 MM HG, HR 93 /MIN, RR 16 /MIN, TEMP 97.2 F, OXYGEN SAT % 97%, NA INITIALS AW 1152. EXAMINATION GENERAL EXAMINATION: LUNGS:LUNG SOUNDS ARE CLEAR. HEART:HEART RATE REGULAR. MUSCULOSKELETAL:*NORMAL STEADY GAIT. MUSCLE STRENGTH 2/5 RIGHT/3/5LEFT BILAT LOWER EXTREMITIES. PALPATION:TENDER OVER L/S SPINE AND L/S PARASPINALS R>L BILAT.. ASSESSMENTS POST LAMINECTOMY SYNDROME - M96.1 (PRIMARY) LUMBOSACRAL RADICULOPATHY - M54.17 TREATMENT POST LAMINECTOMY SYNDROME CONTINUE TRAMADOL HCL TABLET, 50 MG, 1-2 TAB, ORALLY, Q4-6 HR MDD 4 CONTINUE HYDROCODONE-ACETAMINOPHEN TABLET, 7.5-325 MG, 1-2, ORALLY, Q4-6H MDD8 PRN FOR PAIN NOTES: W/C REQUEST CAUDAL EPIDURAL STEROID, ISTOP REGISTRY REVIEWED [id number] RISKS AND BENEFITS OF NARCOTIC/OPIOD MEDICATIONS WERE REVIEWED WITH PATIENT - THIS INCLUDES BUT IS NOT LIMITED TO RISK OF DEPENDANCE/DEVELOPMENT OF ADDICTION, MOOD DISTURBANCE AND DEPRESSION, OSTEOPOROSIS, HORMONAL AND LABIDAL CHANGES, RESPIRATORY DEPRESSION AND . PATIENT IS ADVISED NOT TO DRIVE WHILE ON THESE MEDICATIONS, AND DEMNOSTRATES COMPLLIANCE. BRINGS IN MEDICATIONS WHICH IS APPROPRIATE FOR WHAT WAS DISPENSED. RECENT URINE TOXICOLOGY REVIEWED. NO UNAUTHORIZED MEDICATIONS. NO ILLICIT SUBSTANCES AND PRESCRIBED MEDICATIONS WERE PRESENT.PT 2XWK X 6WK-EVALUATE AND TREAT-THIS HAS BEEN APPROVED SEVERAL MONTHS AGO AND ORDER IS WRITTEN TODAY. PROCEDURES PN WORKMANS' COMP OPINION IN YOUR OPINION, WAS THE INCIDENT THAT THE PATIENT DESCRIBED THE COMPETENT MEDICAL CAUSE OF THIS INJURY/ILLNESS? YES ARE THE PATIENT'S COMPLAINTS CONSISTENT WITH HIS/HER HISTORY OF THE INJURY/ILLNESS? YES IS THE PATIENT'S HISTORY OF THE INJURY/ILLNESS CONSISTENT WITH YOUR OBJECTIVE FINDING? YES WHAT IS THE PERCENTAGE OF TEMPORARY IMPAIRMENT? MODERATE TO MARKED = 66.7% IS THE PATIENT WORKING? NO DOCTOR ON SITE: AKIRA PINK MD PROCEDURE CODES FA211 ESTABILISHED PATIENT [facility] CHARGE DISPOSITION & COMMUNICATION FOLLOW UP 2WK POST (REASON: W/C REQUEST CAUDAL EPIDURAL STEROID) ELECTRONICALLY SIGNED BY ERIN FLORENCE ON 04/11/2017 AT 07:04 PM EST DISCLAIMER : THIS IS A VISIT SUMMARY EXTRACTED FROM THE [employer] CHART. IT IS NOT A COPY OF THE [employer] PROGRESS NOTE. KEMI
== END ==
LOC: M PAIN 11:00
PROVIDERS: ATTEND Nurse Practitioner Family
DX: M96.1 Postlaminectomy syndrome, not elsewhere classified (principal); M54.17 Radiculopathy, lumbosacral region; I10 Essential (primary) hypertension; E11.9 Type 2 diabetes mellitus without complications; F17.210 Nicotine dependence, cigarettes, uncomplicated; Z79.84 Long term (current) use of oral hypoglycemic drugs; Z79.891 Long term (current) use of opiate analgesic; Z79.899 Other long term (current) drug therapy; J30.81 Allergic rhinitis due to animal (cat) (dog) hair and dander; J30.2 Other seasonal allergic rhinitis

== ENCOUNTER → 2017-05-14 | Outpatient (CLI) | payer OTHER | LOC: M PAIN 11:30 | DX: G89.29 Other chronic pain (principal); M96.1 Postlaminectomy syndrome, not elsewhere classified; M54.17 Radiculopathy, lumbosacral region; I10 Essential (primary) hypertension; J30.2 Other seasonal allergic rhinitis; J30.81 Allergic rhinitis due to animal (cat) (dog) hair and dander; Z79.891 Long term (current) use of opiate analgesic; Z79.899 Other long term (current) drug therapy | CPT/HCPCS: G0463 ==

== ENCOUNTER → 2017-06-10 | Outpatient (CLI) | payer OTHER ==
[~2017-06-10] MED LIST changes: -ACET500C; -GABA600T3; -HYDR-3716 PO; +ISOVUE-M 300 61% 15ML VIAL (Q9967) As Ordered; -JANUVIA; -JANUVIA OR; -LIDO5DIS TD; +LIDOCAINE 1% SDV INJ 30 ML VIAL As Ordered; -LISI20TA5; -LISINOPRIL/HCTZ; -LISINOPRIL/HCTZ PO; -LOPR100T OR; -METF500T13 PO; -NASAL SPRAY; -NEUR300C OR; -OXYCONTIN; -PREG100CA; -RYZOLT; -SOMA250T; -SOMA350T; -SOMA350T PO; -TRAM50TA2; -TRAM50TA2 OR; -VICO5TAB OR; +diazePAM 5 MG TAB As Ordered; +methylPREDNISolone SUSP 40 MG/ML (DEPO-medrol) VIAL (J1030) As Ordered; +oxyCODONE 5MG TAB As Ordered; -tylenol pm OR
== END ==
LOC: M PAIN 11:45
DX: G89.29 Other chronic pain (principal); M96.1 Postlaminectomy syndrome, not elsewhere classified; M51.17 Intervertebral disc disorders with radiculopathy, lumbosacral region; I10 Essential (primary) hypertension; F17.290 Nicotine dependence, other tobacco product, uncomplicated; L23.81 Allergic contact dermatitis due to animal (cat) (dog) dander; J30.1 Allergic rhinitis due to pollen; Z79.84 Long term (current) use of oral hypoglycemic drugs; Z79.891 Long term (current) use of opiate analgesic; Z79.899 Other long term (current) drug therapy
CPT/HCPCS: J1030

== ENCOUNTER → 2017-10-05 | Outpatient (CLI) | payer OTHER | LOC: M PAIN 11:45 | DX: G89.29 Other chronic pain (principal); M96.1 Postlaminectomy syndrome, not elsewhere classified; I10 Essential (primary) hypertension; J30.81 Allergic rhinitis due to animal (cat) (dog) hair and dander; J30.1 Allergic rhinitis due to pollen; F17.210 Nicotine dependence, cigarettes, uncomplicated; Z79.84 Long term (current) use of oral hypoglycemic drugs; Z79.891 Long term (current) use of opiate analgesic; Z79.899 Other long term (current) drug therapy | CPT/HCPCS: G0463 ==

== ENCOUNTER → 2017-12-03 | Outpatient (CLI) | payer OTHER | LOC: M PAIN 10:00 | DX: G89.29 Other chronic pain (principal); M51.17 Intervertebral disc disorders with radiculopathy, lumbosacral region; I10 Essential (primary) hypertension; M96.1 Postlaminectomy syndrome, not elsewhere classified; J30.81 Allergic rhinitis due to animal (cat) (dog) hair and dander; J30.1 Allergic rhinitis due to pollen; Z79.84 Long term (current) use of oral hypoglycemic drugs; Z79.891 Long term (current) use of opiate analgesic; Z79.899 Other long term (current) drug therapy | CPT/HCPCS: J1030 ==

== ENCOUNTER → 2018-02-02 | Outpatient (CLI) | payer OTHER | LOC: M PAIN 10:00 | DX: M96.1 Postlaminectomy syndrome, not elsewhere classified (principal); E11.9 Type 2 diabetes mellitus without complications; I10 Essential (primary) hypertension; F17.290 Nicotine dependence, other tobacco product, uncomplicated; J30.81 Allergic rhinitis due to animal (cat) (dog) hair and dander; Z79.84 Long term (current) use of oral hypoglycemic drugs; Z79.891 Long term (current) use of opiate analgesic; Z79.899 Other long term (current) drug therapy | CPT/HCPCS: G0463 ==

== ENCOUNTER → 2018-03-03 | Outpatient (CLI) | payer OTHER | LOC: M PAIN 11:45 | DX: M96.1 Postlaminectomy syndrome, not elsewhere classified (principal); F17.210 Nicotine dependence, cigarettes, uncomplicated; I10 Essential (primary) hypertension; Z79.84 Long term (current) use of oral hypoglycemic drugs; Z79.891 Long term (current) use of opiate analgesic; Z79.899 Other long term (current) drug therapy; J30.1 Allergic rhinitis due to pollen; J30.81 Allergic rhinitis due to animal (cat) (dog) hair and dander | CPT/HCPCS: J1030 ==

== ENCOUNTER → 2018-03-31 | Outpatient (CLI) | payer OTHER | LOC: M PAIN 09:15 | DX: M96.1 Postlaminectomy syndrome, not elsewhere classified (principal); M47.27 Other spondylosis with radiculopathy, lumbosacral region; I10 Essential (primary) hypertension; J30.1 Allergic rhinitis due to pollen; E11.9 Type 2 diabetes mellitus without complications; J30.81 Allergic rhinitis due to animal (cat) (dog) hair and dander; F17.210 Nicotine dependence, cigarettes, uncomplicated; Z79.84 Long term (current) use of oral hypoglycemic drugs; Z79.891 Long term (current) use of opiate analgesic; Z79.899 Other long term (current) drug therapy | CPT/HCPCS: G0463 ==

== ENCOUNTER → 2018-05-10 | Outpatient (CLI) | payer OTHER ==
[~2018-05-10] MED LIST changes: +ACET500C; +BUPIVACAINE HCL 0.25% 30 ML VIAL As Ordered ONE; +GABA600T3; +HYDR-3716 PO; -ISOVUE-M 300 61% 15ML VIAL (Q9967) As Ordered; +ISOVUE-M 300 61% 15ML VIAL (Q9967) As Ordered ONE; +JANUVIA; +JANUVIA OR; +LIDO5DIS TD; -LIDOCAINE 1% SDV INJ 30 ML VIAL As Ordered; +LIDOCAINE 1% SDV INJ 30 ML VIAL As Ordered ONE; +LISI20TA5; +LISINOPRIL/HCTZ; +LISINOPRIL/HCTZ PO; +LOPR100T OR; +METF500T13 PO; +NASAL SPRAY; +NEUR300C OR; +OXYCONTIN; +PREG100CA; +RYZOLT; +SOMA250T; +SOMA350T; +SOMA350T PO; +TRAM50TA2; +TRAM50TA2 OR; +TRIAMCINOLONE ACETONIDE SUSP 40 MG/ML VIAL (J3301) As Ordered ONE; +VICO5TAB OR; -diazePAM 5 MG TAB As Ordered; +diazePAM 5 MG TAB As Ordered ONE; -methylPREDNISolone SUSP 40 MG/ML (DEPO-medrol) VIAL (J1030) As Ordered; -oxyCODONE 5MG TAB As Ordered; +oxyCODONE 5MG TAB As Ordered ONE; +tylenol pm OR
--- NOTE | 2018-05-10 16:18 | REP ---
Partial lumbar spine series: There is . History: Injection procedure for pain. 30 seconds of fluoroscopy time is reported. Findings: A sequence of two fluoroscopically obtained last image hold procedural spot radiographs of the lumbar spine document needle position and contrast injection associated with injection procedure. Electronically Signed by Romario Mcclure MD 05/10/2018 04:10 P
--- NOTE | 2018-05-25 23:53 | ECWPNPC ---
PATIENT NAME: PIERRE RIVAS : 1975 GENDER: MALE VISIT DATE: 05/10/2018 DISCHARGE DATE: 05/10/18 1203 VISIT LOCKED DATE TIME: PHYSICIAN: AKIRA MEDRANO MD RESOURCE: AKIRA MEDRANO MD REASON FOR APPOINTMENT 1. W/C BILAT L4/5-L5/S1 LUMBAR THERAPEUTIC FACET BLOCK HISTORY OF PRESENT ILLNESS DEPRESSION SCREENING: PHQ-2 IN LAST TWO WEEKS HAVE YOU BEEN BOTHERED BY LITTLE INTEREST OR PLEASURE IN DOING THINGSNO FEELING DOWN, DEPRESSED, OR HOPELESSNO HISTORY OF PRESENT ILLNESS: PAIN THE PATIENT DESCRIBES THE PAIN... FALL RISK SCREENING: SCREENING :NO FALLS IN THE PAST YEAR CURRENT MEDICATIONS TAKING METFORMIN HCL 500 MG TABLET 1 TABLET WITH MEALS ORALLY DAILY, NOTES: 05/09/18@1700 TAKING LOPRESSOR 100 MG TABLET 1 TABLET ORALLY ONCE DAILY, NOTES: 2 DAYS AGO TAKING LISINOPRIL-HYDROCHLOROTHIAZIDE 20-12.5 MG TABLET 1 TABLET ORALLY ONCE A DAY, NOTES: 2 DAYS AGO TAKING NASAL SALINE 0.65 % SOLUTION 2 DROPS IN EACH NOSTRIL NEEDED NASALLY EVERY 2 HRS, NOTES: 0930 TAKING TYLENOL PM EXTRA STRENGTH 500-25 MG TABLET 1 TABLET AT BEDTIME NEEDED ORALLY ONCE A DAY, NOTES: 05/09/18@2000 TAKING METOPROLOL TARTRATE 25 MG TABLET 1 TABLET WITH FOOD ORALLY TWICE A DAY, NOTES: 2 DAYS AGO TAKING TRAMADOL HCL 50 MG TABLET 1-2 TAB ORALLY Q4-6 HR MDD 4, NOTES: 05/09/18@1700 TAKING LIDODERM 5 % PATCH 1 PATCH TO INTACT SKIN REMOVE AFTER 12 HOURS EXTERNALLY LOW BACK ONCE A DAY ON12 HR OFF 12H, NOTES: 05/08/18@9100 TAKING HYDROCODONE-ACETAMINOPHEN 7.5-325 MG TABLET 1-2 ORALLY Q4-6H MDD8 PRN FOR PAIN, NOTES: 05/09/18@2300 DISCONTINUED VALIUM 10 MG TABLET 1 TABLET NEEDED ORALLY 1 TAB 1HR PRE PROC. MDD1, NOTES: PROCEDURES ONLY DISCONTINUED OXYCODONE HCL 10 MG TABLET 3 ORALLY 3 TAB 1HR PRE PROC. MDD3, NOTES: PROCEDURES ONLY MEDICATION LIST REVIEWED AND RECONCILED WITH THE PATIENT PAST MEDICAL HISTORY POST LAMINECTOMY SYNDROME HYPERTENSION ALLERGIES CATS, RAGWEED SURGICAL HISTORY BACK SURGERY (2) CYST RENMOVED FROM LEFT WRIST 1992 REPAIR TESTICLE 1989 FAMILY HISTORY FATHER: ALIVE MOTHER: ALIVE, DIAGNOSED WITH DIABETES, HYPERTENSION 1 BROTHER(S) , 1 SISTER(S) - HEALTHY. 1 SON(S) , 1 DAUGHTER(S) - HEALTHY. SOCIAL HISTORY GENERAL: TOBACCO USE ARE YOU A:CURRENT SMOKER ARE YOU INTERESTED IN QUITTING?NOT READY TO QUIT SMOKES CIGARS ON OCCASSION COUNSELED THE PATIENT ON SMOKING EFFECTS, EDUCATION MPMLQCEH31/07/2018 HOW OFTEN DO YOU SMOKE CIGARETTES?SOME DAYS, BUT NOT EVERY DAY PATIENT COUNSELED ON THE DANGERS OF TOBACCO USE AND URGED TO QUIT:03/31/2018 ADDITIONAL FINDINGS: TOBACCO USER SMOKES CIGARS AND NOT READY TO QUIT SMOKING CESSATION INFORMATION GIVEN06/10/2017 RECREATIONAL DRUG USE DRUG USE?NO ORIENTAL ORTHODOX [id number] NONE NO BAHAI BELIEFS THAT WOULD IMPACT HEALTH CARE. LANGUAGE LANGUAGES SPOKEN:LEBANESE LEARNING BARRIERS / SPECIAL NEEDS BARRIERS TO LEARNING?NO HEARING IMPAIRED?NO VISION IMPAIRED?NO COGNITIVELY IMPAIRED?NO READINESS TO LEARN?YES LEARNING PREFERENCES?NO LEARNING CAPABILITIES PRESENT?YES EMOTIONAL BARRIERS?NO OCCUPATION: DISABLED. DIET: REGULAR. EXERCISE: WALKS. MARITAL STATUS: . OTHERS AT HOME: SPOUSE, CHILDREN. NEW PATIENT PAIN DIARY TODAY'S VISITNOTES FROM 0-10, WHAT LEVEL IS YOUR PAIN TODAY?8 PAIN CLINIC PFS, CLERGY, PUBLIC HEALTH REFERRALS PFS REFERRAL NEEDED?NO CLERGY REFERRAL NEEDED?NO PUBLIC HEALTH REFERRAL NEEDED?NO WAS THE PROVIDER NOTIFIED OF ANY PERTINENT INFO?NO HAS THE PATIENT BEEN EDUCATED REGARDING HIS/HER PLAN OF CARE?YES HAS THE PATIENT BEEN EDUCATED REGARDING PAIN, THE RISK FOR PAIN, THE IMPORTANCE OF EFFECTIVE PAIN MANAGEMENT, AND THE PAIN ASSESSMENT PROCESS?YES HOUSING: OWNS HOME. ADVANCE DIRECTIVE ADVANCE DIRECTIVE DISCUSSED WITH PATIENT:YES DECLINES INFORMATION REVIEWED WITH PT 02/02/18 BVREVIEWED WITH PT 03/03/18 1232 LASREVIEWED WITH PATIENT 03/31/18 0900 JS. HOSPITALIZATION/MAJOR DIAGNOSTIC PROCEDURE SURGERY RELATED REVIEW OF SYSTEMS REVIEWED BY: PROVIDER: . CONSTITUTIONAL: ANY CHANGE IN YOUR MEDICAL CONDITION? NO . CHILLS NO . FEVER NO . INFECTION: DO YOU HAVE NEW INFECTIONS? NO . DO YOU HAVE HISTORY OF MRSA? NO . MUSCULOSKELETAL: ANY NEW PATTERNS OF PAIN OR NUMBNESS? NO . GASTROENTEROLOGY: ANY NEW CHANGE IN BOWEL CONTROL? NO . GENITOURINARY: ANY NEW CHANGE IN BLADDER CONTROL? NO . IS THERE A CHANCE YOU COULD BE ? NO . HEMATOLOGY/LYMPH: DO YOU TAKE ANY BLOOD THINNERS? (FOR EXAMPLE- COUMADIN, PLAVIX, AGGRENOX, PLATEL, PRADAXA, OR XARELTO) NO . WHEN WAS YOUR LAST DOSE? DATE: TIME: . NEUROLOGY: HAVE YOU FALLEN IN THE PAST 6 MONTHS? YES . ANY NEW EXTREMITY NUMBNESS OR WEAKNESS? NO . CARDIOLOGY: DO YOU HAVE A PACEMAKER OR DEFIBRILLATOR? NO . RESPIRATORY: HAVE YOU BEEN SICK IN THE PAST WEEK? NO . FEVER NO . FLU LIKE SYMPTOMS? NO . COUGH NO . INTEGUMENTARY: DO YOU HAVE ANY RASHES OR OPEN SORES? NO . ALLERGIC/IMMUNO: ARE YOU ALLERGIC TO SHELLFISH OR IV DYE? NO . ANY NEW ALLERGIES? NO . PSYCHIATRIC: DO YOU HAVE THOUGHTS OF HURTING YOURSELF OR SOMEONE ELSE? NO . ARE YOU ABUSED, NEGLECTED, OR IN AN UNSAFE ENVIRONMENT? NO . ENDOCRINOLOGY: ARE YOU DIABETIC? YES . OTHER: DO YOU NEED ANY PRESCRIPTIONS? NO . IF YES, PLEASE LIST: ____ . ANY NEW PROBLEMS WITH YOUR MEDICATIONS? NO . WHEN DID YOU LAST EAT? ____/1618 . WHEN DID YOU LAST DRINK? ____0800 . WHAT DID YOU LAST DRINK? ____WATER . NAME OF PERSON DRIVING YOU HOME? ____MOTHER . DO YOU HAVE ANY OTHER QUESTIONS OR CONCERNS NO . VITAL SIGNS WT 197.4 LBS, HT 71", BMI 27.53 INDEX, BP 185/109 MM HG, HR 87 /MIN, RR 18 /MIN, TEMP 98.0 F, OXYGEN SAT % 98%, SAFE IN ENV? (Y/N) Y, NA INITIALS MT 10:31, REVIEWED BY: DOMINIQUE. ASSESSMENTS SPONDYLOSIS OF LUMBAR REGION WITHOUT MYELOPATHY OR RADICULOPATHY - M47.816 (PRIMARY) SPONDYLOSIS OF LUMBOSACRAL REGION WITHOUT MYELOPATHY OR RADICULOPATHY - M47.817 PROCEDURES PN LUMBAR FACET BLOCK THERAPEUTIC PRE PROCEDURE DIAGNOSIS LUMBAR SPONDYLOSIS, LUMBOSACRAL SPONDYLOSIS POST PROCEDURE DIAGNOSIS LUMBAR SPONDYLOSIS, LUMBOSACRAL SPONDYLOSIS PROCEDURE BILATERAL L4-L5 AND BILATERAL L5-S1 LUMBAR FACET THERAPEUTIC BLOCK SURGEON DR. AKIRA MEDRANO VISION MIXER NONE ANESTHESIA LOCAL PRE PROCEDURE NOTE THE PATIENT HAS A HISTORY OF CHRONIC LOW BACK PAIN. I EVALUATE THE PATIENT AND REVIEWED THE CHART. I WENT OVER THE RISKS, ALTERNATIVES, AND BENEFITS ASSOCIATED WITH THIS PROCEDURE. THE PATIENT WOULD LIKE TO PROCEED AND GIVE CONSENT TO PERFORMED THE PROCEDURE. THE PATIENT DENIES UNEXPLAINABLE WEIGHT LOSS, FEVER, CHILLS, OR NEW CHANGES IN URINARY OR BOWEL CONTROL DESCRIPTION OF PROCEDURE THE PATIENT WAS BROUGHT TO THE PROCEDURE ROOM AND PLACED IN THE PRONE POSITION. THE LUMBOSACRAL AREA WAS CLEANED WITH CHLORAPREP SOLUTION AND DRAPED ASEPTICALLY. THE PROCEDURE WAS DONE UNDER STERILE CONDITIONS. I CHECKED LATERALITY AND THE LEVEL WHERE THE PROCEDURE WAS GOING TO BE PERFORMED WITH THE PATIENT AND THE SUPPORTING STAFF AT THE MOMENT OF THE TIME OUT IN THE PROCEDURE ROOM. UNDER FLUOROSCOPIC GUIDANCE, THE TARGET POINT WAS SELECTED AT THE RIGHT AND LEFT L4-L5 AND RIGHT AND LEFT L5-S1 FACET JOINT. TARGET POINT WAS SELECTED AFTER LATERAL ROTATION AND TILT OF THE MAGNIFIER OF THE C-ARM. LIDOCAINE 0.5% WAS USED TO NUMB THE SKIN AND THE SUBCUTANEOUS TISSUE BELOW IT. SPINAL NEEDLES, 22-GAUGE, WERE ADVANCED UNDER FLUOROSCOPIC GUIDANCE AND FOLLOWING PATIENT FEEDBACK UNTIL THE TARGETS WERE TOUCHED. THE POSITION OF THE NEEDLES WAS VERIFIED WITH AP AND LATERAL VIEWS. AFTER PROPER POSITION OF THE NEEDLES WAS ACHIEVED, ISOVUE-M DYE 30% 0.1 ML WAS INJECTED SHOWING ADEQUATE SPREAD OF THE DYE. THEN A SOLUTION OF 1.9 ML OF BUPIVACAINE 0.125% OF KENALOG 10 MG WAS INJECTED AT EACH SITE. THERE WAS NO EVIDENCE OF BLOOD, PARESTHESIA OR CEREBROSPINAL FLUID DURING THE PROCEDURE. THE PATIENT WAS SENT TO THE RECOVERY ROOM. THE PATIENT WAS MOVING THE EXTREMITIES AND DOING WELL. THERE WAS NO COMPLICATION DURING THE PROCEDURE. FLUOROSCOPY TIME WAS 30 SECONDS POST PROCEDURE NOTE THE PATIENT WILL BE SEEN IN A FOLLOW UP IN THE NEXT FEW WEEKS. INSTRUCTIONS WERE GIVEN, QUESTIONS WERE ANSWERED, AND THE PATIENT EXPRESSED UNDERSTANDING AND AGREES WITH THE PLAN. I, ZEYNEP RIVERA, DOCUMENTED THE ABOVE INFORMATION ACTING A SCRIBE FOR DR. MEDRANO. I HAVE REVIEWED THE ABOVE DOCUMENT, WRITTEN BY ZEYNEP DENNISIBMarcelo AND I VERIFY THAT IT IS ACCURATE. PN WORKMANS' COMP OPINION IN YOUR OPINION, WAS THE INCIDENT THAT THE PATIENT DESCRIBED THE COMPETENT MEDICAL CAUSE OF THIS INJURY/ILLNESS? YES ARE THE PATIENT'S COMPLAINTS CONSISTENT WITH HIS/HER HISTORY OF THE INJURY/ILLNESS? YES IS THE PATIENT'S HISTORY OF THE INJURY/ILLNESS CONSISTENT WITH YOUR OBJECTIVE FINDING? YES WHAT IS THE PERCENTAGE OF TEMPORARY IMPAIRMENT? MODERATE TO MARKED = 66.7% IS THE PATIENT WORKING? NO DOCTOR ON SITE: AKIRA PINK MD DIAGNOSTIC IMAGING [facility] FACET BLOCK (PAIN)[id number] PROCEDURE CODES 6045F RADXPS IN END RTOC3STBLD PXD 60692 INJ PARAVERT F JNT L/S 1 LEV, MODIFIERS: 50 [id number] INJ PARAVERT F JNT L/S 2 LEV, MODIFIERS: 50 DISPOSITION & COMMUNICATION FOLLOW UP 3 WEEKS ELECTRONICALLY SIGNED BY AKIRA MEDRANO MD, MD ON 05/25/2018 AT 07:20 PM EST DISCLAIMER : THIS IS A VISIT SUMMARY EXTRACTED FROM THE [employer] CHART. IT IS NOT A COPY OF THE [employer] PROGRESS NOTE. MTDD
== END ==
LOC: M PAIN 10:15
PROVIDERS: ATTEND Anesthesiology
DX: M47.816 Spondylosis without myelopathy or radiculopathy, lumbar region (principal); M47.817 Spondylosis without myelopathy or radiculopathy, lumbosacral region; I10 Essential (primary) hypertension; M96.1 Postlaminectomy syndrome, not elsewhere classified; J30.81 Allergic rhinitis due to animal (cat) (dog) hair and dander; J30.1 Allergic rhinitis due to pollen; F17.210 Nicotine dependence, cigarettes, uncomplicated; Z79.84 Long term (current) use of oral hypoglycemic drugs; Z79.891 Long term (current) use of opiate analgesic; Z79.899 Other long term (current) drug therapy
CPT/HCPCS: 64493; 64494; J3301; Q9967

== ENCOUNTER → 2018-05-28 | Outpatient (REF) | payer MEDICARE ==
[~2018-05-28] MED LIST changes: -BUPIVACAINE HCL 0.25% 30 ML VIAL As Ordered ONE; -ISOVUE-M 300 61% 15ML VIAL (Q9967) As Ordered ONE; -LIDOCAINE 1% SDV INJ 30 ML VIAL As Ordered ONE; -TRIAMCINOLONE ACETONIDE SUSP 40 MG/ML VIAL (J3301) As Ordered ONE; -diazePAM 5 MG TAB As Ordered ONE; -oxyCODONE 5MG TAB As Ordered ONE
== END ==
LOC: M LABSMT 11:39
PROVIDERS: ATTEND Urology Pediatric Urology
DX: N48.6 Induration penis plastica (principal); Z53.8 Procedure and treatment not carried out for other reasons

== ENCOUNTER → 2018-08-25 | Outpatient (CLI) | payer MEDICARE, OTHER ==
--- NOTE | 2018-09-04 00:24 | ECWPNPC ---
PATIENT NAME: PIERRE RIVAS : 1975 GENDER: MALE VISIT DATE: 08/25/2018 DISCHARGE DATE: 08/25/18 0000 VISIT LOCKED DATE TIME: PHYSICIAN: STANISLAV MIDDLETON RESOURCE: STANISLAV MIDDLETON REASON FOR APPOINTMENT 1. W/C POST PROC HISTORY OF PRESENT ILLNESS HISTORY OF PRESENT ILLNESS: HERE FOR POST PROCEDURE F/U.HAD BILATERAL LUMBAR THERAPEUTIC FACET BLOCK L4/5-L5/S1 ON 05/10/18.REPORTING SIGNIFICANT REDUCTION IN PAIN.RATING PAIN VAS 7/10.PAIN HAS ESCALATED OVER THE PAST 3 WEEKS.HAS RESPONDED WELL TO CAUDAL EPIDURAL IN PAST. PAIN THE PATIENT DESCRIBES THE PAIN... FALL RISK SCREENING: SCREENING :NO FALLS REPORTED IN THE LAST YEAR CURRENT MEDICATIONS TAKING METFORMIN HCL 500 MG TABLET 1 TABLET WITH MEALS ORALLY DAILY, NOTES: 05/09/18@1700 TAKING LOPRESSOR 100 MG TABLET 1 TABLET ORALLY ONCE DAILY, NOTES: 2 DAYS AGO TAKING LISINOPRIL-HYDROCHLOROTHIAZIDE 20-12.5 MG TABLET 1 TABLET ORALLY ONCE A DAY, NOTES: 2 DAYS AGO TAKING NASAL SALINE 0.65 % SOLUTION 2 DROPS IN EACH NOSTRIL NEEDED NASALLY EVERY 2 HRS, NOTES: 0930 TAKING TYLENOL PM EXTRA STRENGTH 500-25 MG TABLET 1 TABLET AT BEDTIME NEEDED ORALLY ONCE A DAY, NOTES: 05/09/18@2000 TAKING METOPROLOL TARTRATE 25 MG TABLET 1 TABLET WITH FOOD ORALLY TWICE A DAY, NOTES: 2 DAYS AGO TAKING TRAMADOL HCL 50 MG TABLET 1-2 TAB ORALLY Q4-6 HR MDD 4, NOTES: 05/09/18@1700 TAKING CO-ENZYME G14-MRLGROW E 200-400 MG-UNIT WAFER DIRECTED ORALLY DAILY TAKING TRAMADOL HCL 50 MG TABLET 1 TABLET NEEDED ORALLY EVERY 6 HRS MDD4 TAKING LIDODERM 5 % PATCH 1 PATCH TO INTACT SKIN REMOVE AFTER 12 HOURS EXTERNALLY LOW BACK ONCE A DAY ON12 HR OFF 12H TAKING HYDROCODONE-ACETAMINOPHEN 7.5-325 MG TABLET 1-2 ORALLY Q4-6H MDD8 PRN FOR PAIN, NOTES: 03/02/18 2100 NOT-TAKING PENTOXIFYLLINE ER 400 MG TABLET EXTENDED RELEASE 1 TABLET WITH MEALS ORALLY DAILY NOT-TAKING VERAPAMIL HCL ER 240 MG CAPSULE EXTENDED RELEASE 24 HOUR 1 CAPSULE TOPICALLY WITH VITAMIN E OIL RUB ON PLAQUE DAILY ONCE A DAY NOT-TAKING VERAPAMIL HCL ER 240 MG CAPSULE EXTENDED RELEASE 24 HOUR 1 CAPSULE TOPICALLY ONCE A DAY NOT-TAKING COLCHICINE 0.6 MG TABLET 1 TABLET ORALLY ONCE A DAY NOT-TAKING POTABA 500 MG CAPSULE 4 CAPSULES WITH MEALS ORALLY SIX TIMES A DAY MEDICATION LIST REVIEWED AND RECONCILED WITH THE PATIENT PAST MEDICAL HISTORY POST LAMINECTOMY SYNDROME HYPERTENSION ALLERGIES CATS, RAGWEED SURGICAL HISTORY BACK SURGERY (2) CYST RENMOVED FROM LEFT WRIST 1992 REPAIR TESTICLE 1989 FAMILY HISTORY FATHER: ALIVE MOTHER: ALIVE, DIAGNOSED WITH DIABETES, HYPERTENSION 1 BROTHER(S) , 1 SISTER(S) - HEALTHY. 1 SON(S) , 1 DAUGHTER(S) - HEALTHY. SOCIAL HISTORY GENERAL: TOBACCO USE ARE YOU A:CURRENT SMOKER ARE YOU INTERESTED IN QUITTING?NOT READY TO QUIT SMOKES CIGARS ON OCCASSION COUNSELED THE PATIENT ON SMOKING EFFECTS, EDUCATION [id number]/03/2019 HOW OFTEN DO YOU SMOKE CIGARETTES?SOME DAYS, BUT NOT EVERY DAY PATIENT COUNSELED ON THE DANGERS OF TOBACCO USE AND URGED TO QUIT:08/25/2018 ADDITIONAL FINDINGS: TOBACCO USER SMOKES CIGARS AND NOT READY TO QUIT SMOKING CESSATION INFORMATION GIVEN06/10/2017 RECREATIONAL DRUG USE DRUG USE?NO TAOISM [id number] NONE NO VOODOO BELIEFS THAT WOULD IMPACT HEALTH CARE. LANGUAGE LANGUAGES SPOKEN:MALAWIAN LEARNING BARRIERS / SPECIAL NEEDS BARRIERS TO LEARNING?NO HEARING IMPAIRED?NO VISION IMPAIRED?NO COGNITIVELY IMPAIRED?NO READINESS TO LEARN?YES LEARNING PREFERENCES?NO LEARNING CAPABILITIES PRESENT?YES EMOTIONAL BARRIERS?NO OCCUPATION: DISABLED. DIET: REGULAR. EXERCISE: WALKS. MARITAL STATUS: . OTHERS AT HOME: SPOUSE, CHILDREN. NEW PATIENT PAIN DIARY TODAY'S VISITNOTES FROM 0-10, WHAT LEVEL IS YOUR PAIN TODAY?8 PAIN CLINIC PFS, CLERGY, PUBLIC HEALTH REFERRALS PFS REFERRAL NEEDED?NO CLERGY REFERRAL NEEDED?NO PUBLIC HEALTH REFERRAL NEEDED?NO WAS THE PROVIDER NOTIFIED OF ANY PERTINENT INFO?NO HAS THE PATIENT BEEN EDUCATED REGARDING HIS/HER PLAN OF CARE?YES HAS THE PATIENT BEEN EDUCATED REGARDING PAIN, THE RISK FOR PAIN, THE IMPORTANCE OF EFFECTIVE PAIN MANAGEMENT, AND THE PAIN ASSESSMENT PROCESS?YES HOUSING: OWNS HOME. ADVANCE DIRECTIVE ADVANCE DIRECTIVE DISCUSSED WITH PATIENT:YES PT HAS NO ADVANCED DIRECTIVES, DECLINES INFORMATION OR ASSISTANCE AT THIS TIME REVIEWED WITH PT 02/02/18 BVREVIEWED WITH PT 03/03/18 1232 LASREVIEWED WITH PATIENT 03/31/18 0945 JSREVIEWED WITH PT 08/25/18 1015 LAS. HOSPITALIZATION/MAJOR DIAGNOSTIC PROCEDURE SURGERY RELATED REVIEW OF SYSTEMS REVIEWED BY: PROVIDER: STANISLAV KHAN . CONSTITUTIONAL: ANY CHANGE IN YOUR MEDICAL CONDITION? NO . CHILLS NO . FEVER NO . INFECTION: DO YOU HAVE NEW INFECTIONS? NO . DO YOU HAVE HISTORY OF MRSA? NO . MUSCULOSKELETAL: ANY NEW PATTERNS OF PAIN OR NUMBNESS? NO . GASTROENTEROLOGY: ANY NEW CHANGE IN BOWEL CONTROL? NO . GENITOURINARY: ANY NEW CHANGE IN BLADDER CONTROL? NO . IS THERE A CHANCE YOU COULD BE ? NO . HEMATOLOGY/LYMPH: DO YOU TAKE ANY BLOOD THINNERS? (FOR EXAMPLE- COUMADIN, PLAVIX, AGGRENOX, PLATEL, PRADAXA, OR XARELTO) NO . WHEN WAS YOUR LAST DOSE? DATE: TIME: . NEUROLOGY: HAVE YOU FALLEN IN THE PAST 12 MONTHS? YES PT SLIPPED ON ICE AND FELL, NO ED VISIT, NO XRAYS, PT DENIES INJURY . ANY NEW EXTREMITY NUMBNESS OR WEAKNESS? NO . CARDIOLOGY: DO YOU HAVE A PACEMAKER OR DEFIBRILLATOR? NO . RESPIRATORY: HAVE YOU BEEN SICK IN THE PAST WEEK? YES PT REPORTS HE FEELS UNDER THE WEATHER, COUGHING, TIRED . FEVER NO . FLU LIKE SYMPTOMS? NO . COUGH NO . INTEGUMENTARY: DO YOU HAVE ANY RASHES OR OPEN SORES? NO . ALLERGIC/IMMUNO: ARE YOU ALLERGIC TO IV DYE? NO . ANY NEW ALLERGIES? NO . PSYCHIATRIC: DO YOU HAVE THOUGHTS OF HURTING YOURSELF OR SOMEONE ELSE? NO . ARE YOU ABUSED, NEGLECTED, OR IN AN UNSAFE ENVIRONMENT? NO . ENDOCRINOLOGY: ARE YOU DIABETIC? YES . OTHER: DO YOU NEED ANY PRESCRIPTIONS? NO . IF YES, PLEASE LIST: ____ . ANY NEW PROBLEMS WITH YOUR MEDICATIONS? NO . WHEN DID YOU LAST EAT? ____ . WHEN DID YOU LAST DRINK? ____ . WHAT DID YOU LAST DRINK? ____ . NAME OF PERSON DRIVING YOU HOME? ____ . DO YOU HAVE ANY OTHER QUESTIONS OR CONCERNS PT WOULD LIKE TO HAVE A CAUDAL EPIDURAL . VITAL SIGNS WT 183 LBS, HT 71", BMI 25.52 INDEX, BP 169/106 MM HG, HR 72 /MIN, RR 18 /MIN, TEMP 97.6 F, OXYGEN SAT % 95%, NA INITIALS AW 0952. EXAMINATION GENERAL EXAMINATION: LUNGS: LUNG SOUNDS ARE CLEAR. HEART: HEART RATE REGULAR. MUSCULOSKELETAL:*NORMAL STEADY GAIT. MUSCLE STRENGTH 2/5 RIGHT/3/5LEFT LOWER EXTREMITIES. PALPATION:TENDER OVER L/S SPINE AND L/S PARASPINALS R>L BILAT.SPECIFIC RADICULAR SYMPTOMS NOTED OVER RIGHT LEG:DECREASED SENSATION TO LIGHT TOUCH OVER RIGHT LEG NOTED. LUMBAR SACRAL SPINE POSITIVE SLE AT 45 DEGREES RIGHT LEG. DIAGNOSTIC TESTS REVIEWED MRI L/S SPINE-2017. ASSESSMENTS LUMBAR POST-LAMINECTOMY SYNDROME - M96.1 (PRIMARY) POST LAMINECTOMY SYNDROME - M96.1 TREATMENT LUMBAR POST-LAMINECTOMY SYNDROME CONTINUE LIDODERM PATCH, 5 %, 1 PATCH TO INTACT SKIN REMOVE AFTER 12 HOURS, EXTERNALLY LOW BACK, ONCE A DAY ON12 HR OFF 12H CONTINUE HYDROCODONE-ACETAMINOPHEN TABLET, 7.5-325 MG, 1-2, ORALLY, Q4-6H MDD8 PRN FOR PAIN, NOTES: 03/02/18 2100 NOTES: W/C REQUEST CAUDAL EPIDURAL, ISTOP REGISTRY REVIEWED AND DEMONSTRATES COMPLLIANCE. (REF #[id number] ) BRINGS IN MEDICATIONS WHICH IS APPROPRIATE FOR WHAT WAS DISPENSED. RECENT URINE TOXICOLOGY REVIEWED. NO UNAUTHORIZED MEDICATIONS. NO ILLICIT SUBSTANCES AND PRESCRIBED MEDICATIONS WERE PRESENT. , RISKS AND BENEFITS OF NARCOTIC/OPIOD MEDICATIONS WERE REVIEWED WITH PATIENT - THIS INCLUDES BUT IS NOT LIMITED TO RISK OF DEPENDANCE/DEVELOPMENT OF ADDICTION, MOOD DISTURBANCE AND DEPRESSION, OSTEOPOROSIS, HORMONAL AND LABIDAL CHANGES, RESPIRATORY DEPRESSION AND . PATIENT IS ADVISED NOT TO DRIVE OR DRINK ALCOHOL WHILE ON THESE MEDICATIONS. PROCEDURES PN WORKMANS' COMP OPINION IN YOUR OPINION, WAS THE INCIDENT THAT THE PATIENT DESCRIBED THE COMPETENT MEDICAL CAUSE OF THIS INJURY/ILLNESS? YES ARE THE PATIENT'S COMPLAINTS CONSISTENT WITH HIS/HER HISTORY OF THE INJURY/ILLNESS? YES IS THE PATIENT'S HISTORY OF THE INJURY/ILLNESS CONSISTENT WITH YOUR OBJECTIVE FINDING? YES WHAT IS THE PERCENTAGE OF TEMPORARY IMPAIRMENT? MODERATE TO MARKED = 66.7% IS THE PATIENT WORKING? NO DOCTOR ON SITE: AKIRA PINK MD PREVENTIVE MEDICINE PAIN CLINIC TEACHING: PROCEDURE TEACHING CAUDAL PROCEDURE REVIEWED WITH PT, PT VERBALIZES UNDERSTANDING. [facility] 08/25/18 1041 . PROCEDURE CODES FA211 ESTABILISHED PATIENT [facility]ILITY CHARGE DISPOSITION & COMMUNICATION FOLLOW UP POST (REASON: W/C REQUEST CAUDAL EPIDURAL) ELECTRONICALLY SIGNED BY ERIN GUTIÉRREZ ON 09/03/2018 AT 02:31 PM EDT DISCLAIMER : THIS IS A VISIT SUMMARY EXTRACTED FROM THE [employer] CHART. IT IS NOT A COPY OF THE [employer] PROGRESS NOTE. KEMI
== END ==
LOC: M PAIN 09:45
PROVIDERS: ATTEND Nurse Practitioner Family
DX: M96.1 Postlaminectomy syndrome, not elsewhere classified (principal); E11.9 Type 2 diabetes mellitus without complications; I10 Essential (primary) hypertension; J30.2 Other seasonal allergic rhinitis; J30.81 Allergic rhinitis due to animal (cat) (dog) hair and dander; F17.210 Nicotine dependence, cigarettes, uncomplicated; Z79.84 Long term (current) use of oral hypoglycemic drugs; Z79.891 Long term (current) use of opiate analgesic; Z79.899 Other long term (current) drug therapy

== ENCOUNTER → 2018-10-05 | Outpatient (CLI) | payer OTHER, MEDICARE ==
[~2018-10-05] MED LIST changes: +ISOVUE-M 300 61% 15ML VIAL (Q9967) As Ordered ONE; +LIDOCAINE 1% SDV INJ 30 ML VIAL As Ordered ONE; +diazePAM 5 MG TAB As Ordered ONE; +methylPREDNISolone SUSP 40 MG/ML (DEPO-medrol) VIAL (J1030) As Ordered ONE; +oxyCODONE 5MG TAB As Ordered ONE
--- NOTE | 2018-10-05 15:48 | REP ---
Partial sacrum and coccyx series: Two views. History: Caudal epidural. Pain. 8 seconds of fluoroscopy time is reported. Findings: A sequence of two last image hold fluoroscopically obtained spot radiographs of the coccyx document needle position and contrast injection associated with injection procedure. Electronically Signed by Romario Mcclure MD 10/05/2018 05:26 P
--- NOTE | 2018-10-16 23:28 | ECWPNPC ---
PATIENT NAME: PIERRE RIVAS : 1975 GENDER: MALE VISIT DATE: 10/05/2018 DISCHARGE DATE: 10/05/18 1246 VISIT LOCKED DATE TIME: PHYSICIAN: AKIRA MEDRANO MD RESOURCE: AKIRA MEDRANO MD REASON FOR APPOINTMENT 1. W/C CAUDAL EPIDURAL HISTORY OF PRESENT ILLNESS HISTORY OF PRESENT ILLNESS: PAIN THE PATIENT DESCRIBES THE PAIN... FALL RISK SCREENING: SCREENING :NO FALLS REPORTED IN THE LAST YEAR CURRENT MEDICATIONS TAKING METFORMIN HCL 500 MG TABLET 1 TABLET WITH MEALS ORALLY DAILY, NOTES: 10/04/18 1700 TAKING LOPRESSOR 100 MG TABLET 1 TABLET ORALLY ONCE DAILY, NOTES: 1030 TAKING LISINOPRIL-HYDROCHLOROTHIAZIDE 20-12.5 MG TABLET 1 TABLET ORALLY ONCE A DAY, NOTES: 1030 TAKING NASAL SALINE 0.65 % SOLUTION 2 DROPS IN EACH NOSTRIL NEEDED NASALLY EVERY 2 HRS, NOTES: FEW DAYS AGO TAKING TYLENOL PM EXTRA STRENGTH 500-25 MG TABLET 1 TABLET AT BEDTIME NEEDED ORALLY ONCE A DAY, NOTES: 10/04/18 2100 TAKING METOPROLOL TARTRATE 25 MG TABLET 1 TABLET WITH FOOD ORALLY TWICE A DAY, NOTES: 1030 TAKING TRAMADOL HCL 50 MG TABLET 1-2 TAB ORALLY Q4-6 HR MDD 4, NOTES: DUPLICATE TAKING TRAMADOL HCL 50 MG TABLET 1 TABLET NEEDED ORALLY EVERY 6 HRS MDD4, NOTES: 10/04/18 1700 TAKING LIDODERM 5 % PATCH 1 PATCH TO INTACT SKIN REMOVE AFTER 12 HOURS EXTERNALLY LOW BACK ONCE A DAY ON12 HR OFF 12H, NOTES: 2 DAYS AGO TAKING HYDROCODONE-ACETAMINOPHEN 7.5-325 MG TABLET 1-2 ORALLY Q4-6H MDD8 PRN FOR PAIN, NOTES: 10/04/182099 NOT-TAKING CO-ENZYME [id number] E 200-400 MG-UNIT WAFER DIRECTED ORALLY DAILY NOT-TAKING PENTOXIFYLLINE ER 400 MG TABLET EXTENDED RELEASE 1 TABLET WITH MEALS ORALLY DAILY NOT-TAKING VERAPAMIL HCL ER 240 MG CAPSULE EXTENDED RELEASE 24 HOUR 1 CAPSULE TOPICALLY WITH VITAMIN E OIL RUB ON PLAQUE DAILY ONCE A DAY NOT-TAKING VERAPAMIL HCL ER 240 MG CAPSULE EXTENDED RELEASE 24 HOUR 1 CAPSULE TOPICALLY ONCE A DAY NOT-TAKING COLCHICINE 0.6 MG TABLET 1 TABLET ORALLY ONCE A DAY NOT-TAKING POTABA 500 MG CAPSULE 4 CAPSULES WITH MEALS ORALLY SIX TIMES A DAY MEDICATION LIST REVIEWED AND RECONCILED WITH THE PATIENT PAST MEDICAL HISTORY POST LAMINECTOMY SYNDROME HYPERTENSION CHRONIC PAIN ALLERGIES CATS, RAGWEED SURGICAL HISTORY BACK SURGERY (2) CYST RENMOVED FROM LEFT WRIST 1992 REPAIR TESTICLE 1989 FAMILY HISTORY FATHER: ALIVE MOTHER: ALIVE, DIAGNOSED WITH DIABETES, HYPERTENSION 1 BROTHER(S) , 1 SISTER(S) - HEALTHY. 1 SON(S) , 1 DAUGHTER(S) - HEALTHY. UNCLE - - LIVER DISEASE. SOCIAL HISTORY GENERAL: TOBACCO USE ARE YOU A:CURRENT SMOKER ARE YOU INTERESTED IN QUITTING?NOT READY TO QUIT SMOKES CIGARS ON OCCASSION COUNSELED THE PATIENT ON SMOKING EFFECTS, EDUCATION [id number]/14/2019 HOW OFTEN DO YOU SMOKE CIGARETTES?SOME DAYS, BUT NOT EVERY DAY PATIENT COUNSELED ON THE DANGERS OF TOBACCO USE AND URGED TO QUIT:10/05/2018 ADDITIONAL FINDINGS: TOBACCO USER SMOKES CIGARS AND NOT READY TO QUIT SMOKING CESSATION INFORMATION GIVEN06/10/2017 OTHERS AT HOME: SPOUSE, CHILDREN. HOUSING: OWNS HOME. DIET: REGULAR. LANGUAGE LANGUAGES SPOKEN:B[place]GI[place] NEW PATIENT PAIN DIARY TODAY'S VISITNOTES FROM 0-10, WHAT LEVEL IS YOUR PAIN TODAY?8 RECREATIONAL DRUG USE DRUG USE?NO EXERCISE: WALKS. LEARNING BARRIERS / SPECIAL NEEDS BARRIERS TO LEARNING?NO HEARING IMPAIRED?NO VISION IMPAIRED?NO COGNITIVELY IMPAIRED?NO READINESS TO LEARN?YES LEARNING PREFERENCES?NO LEARNING CAPABILITIES PRESENT?YES EMOTIONAL BARRIERS?NO PAIN CLINIC PFS, CLERGY, PUBLIC HEALTH REFERRALS PFS REFERRAL NEEDED?NO CLERGY REFERRAL NEEDED?NO PUBLIC HEALTH REFERRAL NEEDED?NO WAS THE PROVIDER NOTIFIED OF ANY PERTINENT INFO?NO HAS THE PATIENT BEEN EDUCATED REGARDING HIS/HER PLAN OF CARE?YES HAS THE PATIENT BEEN EDUCATED REGARDING PAIN, THE RISK FOR PAIN, THE IMPORTANCE OF EFFECTIVE PAIN MANAGEMENT, AND THE PAIN ASSESSMENT PROCESS?YES LATEX QUESTIONNAIRE LATEX ALLERGY : HAVE YOU EVER DEVELOPED ANY TYPE OF REACTION AFTER HANDLING LATEX PRODUCTS SUCH RUBBER GLOVES, CONDOMS, DIAPHRAGMS, BALLOONS, SOCKS, OR UNDERWEAR?NO LATEX ALLERGY : HAVE YOU EVER DEVELOPED ANY TYPE OF REACTION DURING OR AFTER DENTAL APPOINTMENT, VAGINAL/RECTAL EXAMINATION, SURGICAL PROCEDURE, OR ANY OTHER EXPOSURE?NO LATEX RISK : HAVE YOU EVER HAD ANY DIFFICULTY BREATHING OR HIVES AFTER EATING OR HANDLING ANY FRUITS, OR VEGETABLES; SUCH KIWI, BANANAS, STONE FRUITS, OR CHESTNUTSNO LATEX RISK : DO YOU HAVE A PREVIOUS PERSONAL HISTORY OF MORE THAN NINE SURGERIES, SPINA BIFIDA, OR REPEATED CATHERTIZATIONS? NO LATEX RISK : ARE YOU FREQUENTLY EXPOSED TO LATEX PRODUCTS IN YOUR OCCUPATION?NO DATE ASKED : 10/05/2018 ADVANCE DIRECTIVE ADVANCE DIRECTIVE DISCUSSED WITH PATIENT:YES PT HAS NO ADVANCED DIRECTIVES, DECLINES HCP INFORMATION OR ASSISTANCE AT THIS TIME. JUDAISM [id number] NONE NO CHURCH BELIEFS THAT WOULD IMPACT HEALTH CARE. MARITAL STATUS: . OCCUPATION: DISABLED. REVIEWED WITH PT 02/02/18 BVREVIEWED WITH PT 03/03/18 1232 LASREVIEWED WITH PATIENT 03/31/18 0945 JSREVIEWED WITH PT 08/25/18 1015 LASREVIEWED WITH PATIENT 10/05/18 1116 JS. HOSPITALIZATION/MAJOR DIAGNOSTIC PROCEDURE SURGERY RELATED REVIEW OF SYSTEMS REVIEWED BY: PROVIDER: . CONSTITUTIONAL: ANY CHANGE IN YOUR MEDICAL CONDITION? NO . CHILLS NO . FEVER NO . INFECTION: DO YOU HAVE NEW INFECTIONS? NO . DO YOU HAVE HISTORY OF MRSA? NO . MUSCULOSKELETAL: ANY NEW PATTERNS OF PAIN OR NUMBNESS? NO . GASTROENTEROLOGY: ANY NEW CHANGE IN BOWEL CONTROL? NO . GENITOURINARY: ANY NEW CHANGE IN BLADDER CONTROL? NO . IS THERE A CHANCE YOU COULD BE ? NO . HEMATOLOGY/LYMPH: DO YOU TAKE ANY BLOOD THINNERS? (FOR EXAMPLE- COUMADIN, PLAVIX, AGGRENOX, PLATEL, PRADAXA, OR XARELTO) NO . WHEN WAS YOUR LAST DOSE? DATE: TIME: . NEUROLOGY: HAVE YOU FALLEN IN THE PAST 12 MONTHS? YES, STATES FALL LATE AUGUST/EARLY SEPTEMBER. SLIPPED IN GRASS, STATES NO INJURIES, NO ED VISIT . ANY NEW EXTREMITY NUMBNESS OR WEAKNESS? NO . CARDIOLOGY: DO YOU HAVE A PACEMAKER OR DEFIBRILLATOR? NO . RESPIRATORY: HAVE YOU BEEN SICK IN THE PAST WEEK? NO . FEVER NO . FLU LIKE SYMPTOMS? NO . COUGH NO . INTEGUMENTARY: DO YOU HAVE ANY RASHES OR OPEN SORES? NO . ALLERGIC/IMMUNO: ARE YOU ALLERGIC TO IV DYE? NO . ANY NEW ALLERGIES? NO . PSYCHIATRIC: DO YOU HAVE THOUGHTS OF HURTING YOURSELF OR SOMEONE ELSE? NO . ARE YOU ABUSED, NEGLECTED, OR IN AN UNSAFE ENVIRONMENT? NO . ENDOCRINOLOGY: ARE YOU DIABETIC? YES, FSBS 120 LAST NIGHT . OTHER: DO YOU NEED ANY PRESCRIPTIONS? NO . IF YES, PLEASE LIST: ____ . ANY NEW PROBLEMS WITH YOUR MEDICATIONS? NO . WHEN DID YOU LAST EAT? ____5/13/19 1900 . WHEN DID YOU LAST DRINK? ____10/05/18 1030 . WHAT DID YOU LAST DRINK? ____SIP OF WATER . NAME OF PERSON DRIVING YOU HOME? ____MOTHER - YVETTE . DO YOU HAVE ANY OTHER QUESTIONS OR CONCERNS DR. MEDRANO MADE AWARE OF PATIENT'S ELEVATED BP AT THIS TIME. ALSO NOTIFIED HIM THAT THE PATIENT HAD A FEW MEDICATIONS AND A SIP OF WATER AT 1030. PER DR. MEDRANO, OK TO PROCEED WITH PROCEDURE. 10/05/18 1132 JS . VITAL SIGNS WT 192.0 LBS, HT 71", BMI 26.78 INDEX, BP 168/105 MM HG, REPEAT BP 172/113, 140/100(MANUAL), HR 83 /MIN, RR 18 /MIN, TEMP 96.7 F, OXYGEN SAT % 98, BLOOD GLUCOSE LEVEL 120 LAST NIGHT, SAFE IN ENV? (Y/N) YES, NA INITIALS MP 1103, REVIEWED BY: JS10/05/18 DISCUSSED ELEVATED BP WITH PATIENT, STATED HE JUST TOOK HIS BP MEDICATIONS AT 1030 AND THAT HE NORMALLY RUNS HIGH. WILL NOTIFY DR. MEDRANO AND CONTINUE TO MONITOR. JS. ASSESSMENTS LUMBAR POST-LAMINECTOMY SYNDROME - M96.1 (PRIMARY) TREATMENT LUMBAR POST-LAMINECTOMY SYNDROME SMC FLUORO GUIDE SPINE INJECTION (PAIN)[id number] PROCEDURES PN WORKMANS' COMP OPINION IN YOUR OPINION, WAS THE INCIDENT THAT THE PATIENT DESCRIBED THE COMPETENT MEDICAL CAUSE OF THIS INJURY/ILLNESS? YES ARE THE PATIENT'S COMPLAINTS CONSISTENT WITH HIS/HER HISTORY OF THE INJURY/ILLNESS? YES IS THE PATIENT'S HISTORY OF THE INJURY/ILLNESS CONSISTENT WITH YOUR OBJECTIVE FINDING? YES WHAT IS THE PERCENTAGE OF TEMPORARY IMPAIRMENT? MODERATE TO MARKED = 66.7% IS THE PATIENT WORKING? NO DOCTOR ON SITE: AKIRA PINK MD PN CAUDAL EPIDURALS PRE PROCEDURE DIAGNOSIS LUMBAR POST LAMINECTOMY PAIN SYNDROME POST PROCEDURE DIAGNOSIS LUMBAR POST LAMINECTOMY PAIN SYNDROME PROCEDURE CAUDAL EPIDURAL STEROID INJECTION UNDER FLUOROSCOPIC GUIDANCE. SURGEON DR. AKIRA MEDRANO VOUCHER CLERK NONE ANESTHESIA LOCAL PRE PROCEDURE NOTE THE PATIENT HAS HISTORY OF CHRONIC LOW BACK PAIN. I EVALUATE THE PATIENT AND REVIEWED THE CHART. I WENT OVER THE RISKS, ALTERNATIVES, AND BENEFITS ASSOCIATED WITH THIS PROCEDURE. THE PATIENT WOULD LIKE TO PROCEED AND GIVE CONSENT TO PERFORMED THE PROCEDURE. THE PATIENT DENIES UNEXPLAINABLE WEIGHT LOSS, FEVER, CHILLS, OR NEW CHANGES IN URINARY OR BOWEL CONTROL. DESCRIPTION OF PROCEDURE THE PATIENT WAS BROUGHT TO THE PROCEDURE ROOM AND PLACED IN THE PRONE POSITION. THE LUMBOSACRAL AREA WAS CLEANED WITH BETADINE SOLUTION AND DRAPED ASEPTICALLY. THE PROCEDURE WAS DONE UNDER STERILE CONDITIONS. I CHECKED LATERALITY AND THE LEVEL WHERE THE PROCEDURE WAS GOING TO BE PERFORMED WITH THE PATIENT AND THE SUPPORTING STAFF AT THE MOMENT OF THE TIME OUT IN THE PROCEDURE ROOM. UNDER FLUOROSCOPIC GUIDANCE, THE TARGET POINT WAS SELECTED AT THE EPIDURAL SPACE BELOW THE SACROCOCCYGEAL LIGAMENT. LIDOCAINE 0.5% WAS USE TO NUMB THE SKIN AND THE SUBCUTANEOUS TISSUE BELOW IT. AN EPIDURAL TUOHY NEEDLE, 17-GAUGE, WAS ADVANCED UNDER FLUOROSCOPIC GUIDANCE AND FOLLOWING PATIENT FEEDBACK UNTIL THE EPIDURAL SPACE WAS REACHED 6 CM DEEP INTO THE SKIN BY THE LOSS OF RESISTANCE TECHNIQUE. ISOVUE M DYE 30%, 0.25 ML, WAS INJECTED SHOWING ADEQUATE SPREAD OF THE DYE. THEN, A SOLUTION OF 6 ML OF NORMAL SALINE WITH DEPO-MEDROL 60 MG WAS INJECTED SLOWLY FOLLOWING THE PATIENT FEEDBACK. THERE WAS NO EVIDENCE OF BLOOD, PARESTHESIA OR CEREBROSPINAL FLUID DURING THE PROCEDURE. THE PATIENT WAS SENT TO THE RECOVERY ROOM. THE PATIENT WAS MOVING THE EXTREMITIES AND DOING WELL. THERE WAS NO COMPLICATION DURING THE PROCEDURE. FLUOROSCOPY TIME WAS 8 SECONDS POST PROCEDURE NOTE THE PATIENT WILL BE SEEN IN A FOLLOW UP IN THE NEXT FEW WEEKS. INSTRUCTIONS WERE GIVEN, QUESTIONS WERE ANSWERED, AND THE PATIENT EXPRESSED UNDERSTANDING AND AGREES WITH THE PLAN. I, ZEYNEP RIVERA, DOCUMENTED THE ABOVE INFORMATION ACTING A SCRIBE FOR DR. MEDRANO. I HAVE REVIEWED THE ABOVE DOCUMENT, WRITTEN BY ZEYNEP RICHARDSON AND I VERIFY THAT IT IS ACCURATE. PROCEDURE CODES 6045F RADXPS IN END [id number] PXD [id number] LUMBAR/SACRAL W/ IMAGING DISPOSITION & COMMUNICATION FOLLOW UP 3 WEEKS ELECTRONICALLY SIGNED BY AKIRA MEDRANO MD, MD ON 10/16/2018 AT 05:09 PM EDT DISCLAIMER : THIS IS A VISIT SUMMARY EXTRACTED FROM THE [employer] CHART. IT IS NOT A COPY OF THE [employer] PROGRESS NOTE. MTDD
== END ==
LOC: M PAIN 10:45
PROVIDERS: ATTEND Anesthesiology
DX: M96.1 Postlaminectomy syndrome, not elsewhere classified (principal); E11.9 Type 2 diabetes mellitus without complications; I10 Essential (primary) hypertension; F17.210 Nicotine dependence, cigarettes, uncomplicated; J30.81 Allergic rhinitis due to animal (cat) (dog) hair and dander; Z79.899 Other long term (current) drug therapy; Z79.84 Long term (current) use of oral hypoglycemic drugs
CPT/HCPCS: 62323; J1030; Q9967

== ENCOUNTER → 2018-10-27 | Outpatient (CLI) | payer OTHER, MEDICARE ==
[~2018-10-27] MED LIST changes: -ISOVUE-M 300 61% 15ML VIAL (Q9967) As Ordered ONE; -LIDOCAINE 1% SDV INJ 30 ML VIAL As Ordered ONE; -diazePAM 5 MG TAB As Ordered ONE; -methylPREDNISolone SUSP 40 MG/ML (DEPO-medrol) VIAL (J1030) As Ordered ONE; -oxyCODONE 5MG TAB As Ordered ONE
--- NOTE | 2018-10-28 00:36 | ECWPNPC ---
PATIENT NAME: PIERRE RIVAS : 1975 GENDER: MALE VISIT DATE: 10/27/2018 DISCHARGE DATE: 10/27/18 1146 VISIT LOCKED DATE TIME: PHYSICIAN: STANISLAV MIDDLETON RESOURCE: STANISLAV MIDDLETON REASON FOR APPOINTMENT 1. WC POST PROC HISTORY OF PRESENT ILLNESS HISTORY OF PRESENT ILLNESS: HERE FOR POST PROCEDURE F/U.HAD CAUDAL EPIDURAL ON 10/05/18.REPORTING IMPROVEMENT IN PAIN INTENSITY AND IMPROVED ACTIVITY TOLERANCE.REPORTING SIGNIFICANT REDUCTION IN RIGHT LEG PAIN.CHIEF AREA OF PAIN IS LOW BACK.RATING LBP 7/10.HAS RESPONDED WELL TO LUMBAR FACET THERAPEUTIC BLOCKS IN PAST.THIS IS A W/C RELATED INJURY/CHRONIC PAIN WITH DOI:2004. PAIN THE PATIENT DESCRIBES THE PAIN... FALL RISK SCREENING: SCREENING :NO FALLS REPORTED IN THE LAST YEAR CURRENT MEDICATIONS TAKING METFORMIN HCL 500 MG TABLET 1 TABLET WITH MEALS ORALLY DAILY TAKING LOPRESSOR 100 MG TABLET 1 TABLET ORALLY ONCE DAILY TAKING LISINOPRIL-HYDROCHLOROTHIAZIDE 20-12.5 MG TABLET 1 TABLET ORALLY ONCE A DAY TAKING NASAL SALINE 0.65 % SOLUTION 2 DROPS IN EACH NOSTRIL NEEDED NASALLY EVERY 2 HRS TAKING TYLENOL PM EXTRA STRENGTH 500-25 MG TABLET 1 TABLET AT BEDTIME NEEDED ORALLY ONCE A DAY TAKING METOPROLOL TARTRATE 25 MG TABLET 1 TABLET WITH FOOD ORALLY TWICE A DAY TAKING TRAMADOL HCL 50 MG TABLET 1 TABLET NEEDED ORALLY EVERY 6 HRS MDD4 TAKING LIDODERM 5 % PATCH 1 PATCH TO INTACT SKIN REMOVE AFTER 12 HOURS EXTERNALLY LOW BACK ONCE A DAY ON12 HR OFF 12H TAKING HYDROCODONE-ACETAMINOPHEN 7.5-325 MG TABLET 1-2 ORALLY Q4-6H MDD8 PRN FOR PAIN NOT-TAKING TRAMADOL HCL 50 MG TABLET 1-2 TAB ORALLY Q4-6 HR MDD 4, NOTES: DUPLICATE NOT-TAKING CO-ENZYME [id number] E 200-400 MG-UNIT WAFER DIRECTED ORALLY DAILY NOT-TAKING PENTOXIFYLLINE ER 400 MG TABLET EXTENDED RELEASE 1 TABLET WITH MEALS ORALLY DAILY NOT-TAKING VERAPAMIL HCL ER 240 MG CAPSULE EXTENDED RELEASE 24 HOUR 1 CAPSULE TOPICALLY WITH VITAMIN E OIL RUB ON PLAQUE DAILY ONCE A DAY NOT-TAKING VERAPAMIL HCL ER 240 MG CAPSULE EXTENDED RELEASE 24 HOUR 1 CAPSULE TOPICALLY ONCE A DAY NOT-TAKING COLCHICINE 0.6 MG TABLET 1 TABLET ORALLY ONCE A DAY NOT-TAKING POTABA 500 MG CAPSULE 4 CAPSULES WITH MEALS ORALLY SIX TIMES A DAY MEDICATION LIST REVIEWED AND RECONCILED WITH THE PATIENT PAST MEDICAL HISTORY POST LAMINECTOMY SYNDROME HYPERTENSION CHRONIC PAIN ALLERGIES CATS, RAGWEED SURGICAL HISTORY BACK SURGERY (2) CYST RENMOVED FROM LEFT WRIST 1992 REPAIR TESTICLE 1989 FAMILY HISTORY FATHER: ALIVE MOTHER: ALIVE, DIAGNOSED WITH DIABETES, HYPERTENSION 1 BROTHER(S) , 1 SISTER(S) - HEALTHY. 1 SON(S) , 1 DAUGHTER(S) - HEALTHY. UNCLE - - LIVER DISEASE. SOCIAL HISTORY GENERAL: TOBACCO USE ARE YOU A:CURRENT SMOKER ARE YOU INTERESTED IN QUITTING?NOT READY TO QUIT SMOKES CIGARS ON OCCASSION COUNSELED THE PATIENT ON SMOKING EFFECTS, EDUCATION [id number]/14/2019 HOW OFTEN DO YOU SMOKE CIGARETTES?SOME DAYS, BUT NOT EVERY DAY PATIENT COUNSELED ON THE DANGERS OF TOBACCO USE AND URGED TO QUIT:10/05/2018 ADDITIONAL FINDINGS: TOBACCO USER SMOKES CIGARS AND NOT READY TO QUIT SMOKING CESSATION INFORMATION GIVEN06/10/2017 OTHERS AT HOME: SPOUSE, CHILDREN. HOUSING: OWNS HOME. DIET: REGULAR. LANGUAGE LANGUAGES SPOKEN:CENTRAL AFR[place] NEW PATIENT PAIN DIARY TODAY'S VISITNOTES FROM 0-10, WHAT LEVEL IS YOUR PAIN TODAY?8 RECREATIONAL DRUG USE DRUG USE?NO EXERCISE: WALKS. LEARNING BARRIERS / SPECIAL NEEDS BARRIERS TO LEARNING?NO HEARING IMPAIRED?NO VISION IMPAIRED?NO COGNITIVELY IMPAIRED?NO READINESS TO LEARN?YES LEARNING PREFERENCES?NO LEARNING CAPABILITIES PRESENT?YES EMOTIONAL BARRIERS?NO PAIN CLINIC PFS, CLERGY, PUBLIC HEALTH REFERRALS PFS REFERRAL NEEDED?NO CLERGY REFERRAL NEEDED?NO PUBLIC HEALTH REFERRAL NEEDED?NO WAS THE PROVIDER NOTIFIED OF ANY PERTINENT INFO?NO HAS THE PATIENT BEEN EDUCATED REGARDING HIS/HER PLAN OF CARE?YES HAS THE PATIENT BEEN EDUCATED REGARDING PAIN, THE RISK FOR PAIN, THE IMPORTANCE OF EFFECTIVE PAIN MANAGEMENT, AND THE PAIN ASSESSMENT PROCESS?YES LATEX QUESTIONNAIRE LATEX ALLERGY : HAVE YOU EVER DEVELOPED ANY TYPE OF REACTION AFTER HANDLING LATEX PRODUCTS SUCH RUBBER GLOVES, CONDOMS, DIAPHRAGMS, BALLOONS, SOCKS, OR UNDERWEAR?NO LATEX ALLERGY : HAVE YOU EVER DEVELOPED ANY TYPE OF REACTION DURING OR AFTER DENTAL APPOINTMENT, VAGINAL/RECTAL EXAMINATION, SURGICAL PROCEDURE, OR ANY OTHER EXPOSURE?NO LATEX RISK : HAVE YOU EVER HAD ANY DIFFICULTY BREATHING OR HIVES AFTER EATING OR HANDLING ANY FRUITS, OR VEGETABLES; SUCH KIWI, BANANAS, STONE FRUITS, OR CHESTNUTSNO LATEX RISK : DO YOU HAVE A PREVIOUS PERSONAL HISTORY OF MORE THAN NINE SURGERIES, SPINA BIFIDA, OR REPEATED CATHERTIZATIONS? NO LATEX RISK : ARE YOU FREQUENTLY EXPOSED TO LATEX PRODUCTS IN YOUR OCCUPATION?NO DATE ASKED : 10/05/2018 ADVANCE DIRECTIVE ADVANCE DIRECTIVE DISCUSSED WITH PATIENT:YES PT HAS NO ADVANCED DIRECTIVES, DECLINES HCP INFORMATION OR ASSISTANCE AT THIS TIME. 10/27/18 BV [facility]RISTIAN[facility] [id number] NONE NO SIKH BELIEFS THAT WOULD IMPACT HEALTH CARE. MARITAL STATUS: . OCCUPATION: DISABLED. REVIEWED WITH PT 02/02/18 BVREVIEWED WITH PT 03/03/18 1232 LASREVIEWED WITH PATIENT 03/31/18 0945 JSREVIEWED WITH PT 08/25/18 1015 LASREVIEWED WITH PATIENT 10/05/18 1116 JSREVIEWED WITH PT 10/27/18 1058 BV. HOSPITALIZATION/MAJOR DIAGNOSTIC PROCEDURE SURGERY RELATED REVIEW OF SYSTEMS REVIEWED BY: PROVIDER: STANISLAV KHAN . CONSTITUTIONAL: ANY CHANGE IN YOUR MEDICAL CONDITION? NO . CHILLS NO . FEVER NO . INFECTION: DO YOU HAVE NEW INFECTIONS? NO . DO YOU HAVE HISTORY OF MRSA? NO . MUSCULOSKELETAL: ANY NEW PATTERNS OF PAIN OR NUMBNESS? NO . GASTROENTEROLOGY: ANY NEW CHANGE IN BOWEL CONTROL? NO . GENITOURINARY: ANY NEW CHANGE IN BLADDER CONTROL? NO . IS THERE A CHANCE YOU COULD BE ? NO . HEMATOLOGY/LYMPH: DO YOU TAKE ANY BLOOD THINNERS? (FOR EXAMPLE- COUMADIN, PLAVIX, AGGRENOX, PLATEL, PRADAXA, OR XARELTO) NO . WHEN WAS YOUR LAST DOSE? DATE: TIME: . NEUROLOGY: HAVE YOU FALLEN IN THE PAST 12 MONTHS? NO . ANY NEW EXTREMITY NUMBNESS OR WEAKNESS? NO . CARDIOLOGY: DO YOU HAVE A PACEMAKER OR DEFIBRILLATOR? NO . RESPIRATORY: HAVE YOU BEEN SICK IN THE PAST WEEK? NO . FEVER NO . FLU LIKE SYMPTOMS? NO . COUGH NO . INTEGUMENTARY: DO YOU HAVE ANY RASHES OR OPEN SORES? NO . ALLERGIC/IMMUNO: ARE YOU ALLERGIC TO IV DYE? NO . ANY NEW ALLERGIES? NO . PSYCHIATRIC: DO YOU HAVE THOUGHTS OF HURTING YOURSELF OR SOMEONE ELSE? NO . ARE YOU ABUSED, NEGLECTED, OR IN AN UNSAFE ENVIRONMENT? NO . ENDOCRINOLOGY: ARE YOU DIABETIC? YES . OTHER: DO YOU NEED ANY PRESCRIPTIONS? YES, HYDROCODONE, TRAMADOL . IF YES, PLEASE LIST: ____ . ANY NEW PROBLEMS WITH YOUR MEDICATIONS? NO . WHEN DID YOU LAST EAT? ____ . WHEN DID YOU LAST DRINK? ____ . WHAT DID YOU LAST DRINK? ____ . NAME OF PERSON DRIVING YOU HOME? ____ . DO YOU HAVE ANY OTHER QUESTIONS OR CONCERNS YES, PT WOULD LIKE TO DISCUSS NERVE PAIN AFTER LAST INJECTION . VITAL SIGNS WT 188.2 LBS, HT 71", BMI 26.78 INDEX, BP 134/98 MM HG, HR 80 /MIN, RR 18 /MIN, TEMP 97.2 F, OXYGEN SAT % 97, NA INITIALS MP 1035, REVIEWED BY: BV. EXAMINATION GENERAL EXAMINATION: GENERAL APPEARANCE:ALERT,NO DISTRESS. PSYCHAFFECT NORMAL. LUNGS:LUNG SOUNDS ARE CLEAR. HEART:HEART RATE REGULAR. MUSCULOSKELETAL:MUSCLE STRENGTH TESTING 4/5 RIGHT--5/5 LEFT, PALPATION: POSITIVE FOR PAIN OVER L/S SPINE. POSITIVE FOR PAIN OVER L/S PARSPINALS.SPECIFIC POINT TENDERNESS OVER BILAT. L4/5-L5/S1 FACETS. DIAGNOSTIC TESTS REVIEWEDMRI L/S SPINE-2017. ASSESSMENTS SPONDYLOSIS OF LUMBAR REGION WITHOUT MYELOPATHY OR RADICULOPATHY - M47.816 (PRIMARY) LUMBAR POST-LAMINECTOMY SYNDROME - M96.1 TREATMENT SPONDYLOSIS OF LUMBAR REGION WITHOUT MYELOPATHY OR RADICULOPATHY REFILL TRAMADOL HCL TABLET, 50 MG, 1 TABLET NEEDED, ORALLY, EVERY 6 HRS MDD4, 30 DAY(S), 120, REFILLS 2 REFILL LIDODERM PATCH, 5 %, 1 PATCH TO INTACT SKIN REMOVE AFTER 12 HOURS, EXTERNALLY LOW BACK, ONCE A DAY ON12 HR OFF 12H, 30 DAY(S), 30, REFILLS 2 REFILL HYDROCODONE-ACETAMINOPHEN TABLET, 7.5-325 MG, 1-2, ORALLY, Q4-6H MDD8 PRN FOR PAIN, 7 DAYS, 56, REFILLS 0 NOTES: ISTOP REGISTRY REVIEWED AND DEMONSTRATES COMPLLIANCE. (REF # ) BRINGS IN MEDICATIONS WHICH IS APPROPRIATE FOR WHAT WAS DISPENSED. RECENT URINE TOXICOLOGY REVIEWED. NO UNAUTHORIZED MEDICATIONS. NO ILLICIT SUBSTANCES AND PRESCRIBED MEDICATIONS WERE PRESENT. , RISKS AND BENEFITS OF NARCOTIC/OPIOD MEDICATIONS WERE REVIEWED WITH PATIENT - THIS INCLUDES BUT IS NOT LIMITED TO RISK OF DEPENDANCE/DEVELOPMENT OF ADDICTION, MOOD DISTURBANCE AND DEPRESSION, OSTEOPOROSIS, HORMONAL AND LABIDAL CHANGES, RESPIRATORY DEPRESSION AND . PATIENT IS ADVISED NOT TO DRIVE OR DRINK ALCOHOL WHILE ON THESE MEDICATIONSW/C REQUEST BILAT.L4/5-L5/S1 LFB THER. PROCEDURES PN WORKMANS' COMP OPINION IN YOUR OPINION, WAS THE INCIDENT THAT THE PATIENT DESCRIBED THE COMPETENT MEDICAL CAUSE OF THIS INJURY/ILLNESS? YES ARE THE PATIENT'S COMPLAINTS CONSISTENT WITH HIS/HER HISTORY OF THE INJURY/ILLNESS? YES IS THE PATIENT'S HISTORY OF THE INJURY/ILLNESS CONSISTENT WITH YOUR OBJECTIVE FINDING? YES WHAT IS THE PERCENTAGE OF TEMPORARY IMPAIRMENT? MODERATE TO MARKED = 66.7% IS THE PATIENT WORKING? NO DOCTOR ON SITE: AKIRA PINK MD PREVENTIVE MEDICINE PAIN CLINIC TEACHING: PROCEDURE TEACHING PT GIVEN WRITTEN AND VERBAL PRE-PROCEDURE INSTRUCTIONS. PT VERBALIZES UNDERSTANDING OF ALL INSTRUCTIONS. BUDDY AVERY 10/27/2018 11:31:21 AM > . PROCEDURE CODES FA211 ESTABILISHED PATIENT [facility] FAC[facility] CHARGE DISPOSITION & COMMUNICATION FOLLOW UP POST (REASON: W/C REQUEST BILAT.L4/5-L5/S1 LFB THER) ELECTRONICALLY SIGNED BY ERIN GUTIÉRREZ ON 10/27/2018 AT 02:12 PM EDT DISCLAIMER : THIS IS A VISIT SUMMARY EXTRACTED FROM THE [employer] CHART. IT IS NOT A COPY OF THE [employer] PROGRESS NOTE. KEMI
== END ==
LOC: M PAIN 10:15
PROVIDERS: ATTEND Nurse Practitioner Family
DX: M47.816 Spondylosis without myelopathy or radiculopathy, lumbar region (principal); M96.1 Postlaminectomy syndrome, not elsewhere classified; J30.81 Allergic rhinitis due to animal (cat) (dog) hair and dander; Z79.84 Long term (current) use of oral hypoglycemic drugs; Z79.891 Long term (current) use of opiate analgesic; Z79.899 Other long term (current) drug therapy; F17.210 Nicotine dependence, cigarettes, uncomplicated

== ENCOUNTER → 2019-02-02 | Outpatient (CLI) | payer OTHER, MEDICARE ==
[~2019-02-02] MED LIST changes: +BUPIVACAINE HCL 0.25% 30 ML VIAL As Ordered ONE; +ISOVUE-M 300 61% 15ML VIAL (Q9967) As Ordered ONE; +LIDOCAINE 1% SDV INJ 30 ML VIAL As Ordered ONE; +TRIAMCINOLONE ACETONIDE SUSP 40 MG/ML VIAL (J3301) As Ordered ONE; +diazePAM 5 MG TAB As Ordered ONE; +oxyCODONE 5MG TAB As Ordered ONE
--- NOTE | 2019-02-02 16:28 | REP ---
C-ARM VIEWS, LOWER LUMBAR SPINE: CLINICAL HISTORY: Pain. Two C-ARM views of the lower lumbar spine are performed during facet injection by Dr. Leblanc. [place] are seen along the lower lumbar spine. Metallic screws, rods and disc spacers are noted. 20 seconds of fluoroscopy time was utilized. Electronically Signed by Mayur Toure MD 02/03/2019 10:48 A
--- NOTE | 2019-02-12 00:50 | ECWPNPC ---
PATIENT NAME: PIERRE RIVAS : 1975 GENDER: MALE VISIT DATE: 02/02/2019 DISCHARGE DATE: 02/02/19 1523 VISIT LOCKED DATE TIME: PHYSICIAN: AKIRA MEDRANO MD RESOURCE: AKIRA MEDRANO MD REASON FOR APPOINTMENT 1. BILAT L4-5, L5-S1 LFB THER HISTORY OF PRESENT ILLNESS HISTORY OF PRESENT ILLNESS: PAIN THE PATIENT DESCRIBES THE PAIN... FALL RISK SCREENING: SCREENING :NO FALLS REPORTED IN THE LAST YEAR CURRENT MEDICATIONS TAKING METFORMIN HCL 500 MG TABLET 1 TABLET WITH MEALS ORALLY DAILY TAKING LOPRESSOR 100 MG TABLET 1 TABLET ORALLY ONCE DAILY TAKING LISINOPRIL-HYDROCHLOROTHIAZIDE 20-12.5 MG TABLET 1 TABLET ORALLY ONCE A DAY TAKING NASAL SALINE 0.65 % SOLUTION 2 DROPS IN EACH NOSTRIL NEEDED NASALLY EVERY 2 HRS TAKING TYLENOL PM EXTRA STRENGTH 500-25 MG TABLET 1 TABLET AT BEDTIME NEEDED ORALLY ONCE A DAY TAKING METOPROLOL TARTRATE 25 MG TABLET 1 TABLET WITH FOOD ORALLY TWICE A DAY TAKING TRAMADOL HCL 50 MG TABLET 1 TABLET NEEDED ORALLY EVERY 6 HRS MDD4 TAKING LIDODERM 5 % PATCH 1 PATCH TO INTACT SKIN REMOVE AFTER 12 HOURS EXTERNALLY LOW BACK ONCE A DAY ON12 HR OFF 12H TAKING HYDROCODONE-ACETAMINOPHEN 7.5-325 MG TABLET 1-2 ORALLY Q4-6H MDD8 PRN FOR PAIN NOT-TAKING TRAMADOL HCL 50 MG TABLET 1-2 TAB ORALLY Q4-6 HR MDD 4, NOTES: DUPLICATE NOT-TAKING CO-ENZYME [id number] E 200-400 MG-UNIT WAFER DIRECTED ORALLY DAILY NOT-TAKING PENTOXIFYLLINE ER 400 MG TABLET EXTENDED RELEASE 1 TABLET WITH MEALS ORALLY DAILY NOT-TAKING VERAPAMIL HCL ER 240 MG CAPSULE EXTENDED RELEASE 24 HOUR 1 CAPSULE TOPICALLY WITH VITAMIN E OIL RUB ON PLAQUE DAILY ONCE A DAY NOT-TAKING VERAPAMIL HCL ER 240 MG CAPSULE EXTENDED RELEASE 24 HOUR 1 CAPSULE TOPICALLY ONCE A DAY NOT-TAKING COLCHICINE 0.6 MG TABLET 1 TABLET ORALLY ONCE A DAY NOT-TAKING POTABA 500 MG CAPSULE 4 CAPSULES WITH MEALS ORALLY SIX TIMES A DAY MEDICATION LIST REVIEWED AND RECONCILED WITH THE PATIENT PAST MEDICAL HISTORY POST LAMINECTOMY SYNDROME HYPERTENSION CHRONIC PAIN ALLERGIES CATS, RAGWEED SURGICAL HISTORY BACK SURGERY (2) CYST RENMOVED FROM LEFT WRIST 1992 REPAIR TESTICLE 1989 FAMILY HISTORY FATHER: ALIVE MOTHER: ALIVE, DIAGNOSED WITH DIABETES, HYPERTENSION 1 BROTHER(S) , 1 SISTER(S) - HEALTHY. 1 SON(S) , 1 DAUGHTER(S) - HEALTHY. UNCLE - - LIVER DISEASE. SOCIAL HISTORY GENERAL: TOBACCO USE ARE YOU A:CURRENT SMOKER ARE YOU INTERESTED IN QUITTING?NOT READY TO QUIT SMOKES CIGARS ON OCCASSION COUNSELED THE PATIENT ON SMOKING EFFECTS, EDUCATION [id number]/14/2019 HOW OFTEN DO YOU SMOKE CIGARETTES?SOME DAYS, BUT NOT EVERY DAY PATIENT COUNSELED ON THE DANGERS OF TOBACCO USE AND URGED TO QUIT:02/02/2019 ADDITIONAL FINDINGS: TOBACCO USER SMOKES CIGARS AND NOT READY TO QUIT SMOKING CESSATION INFORMATION GIVEN06/10/2017 OTHERS AT HOME: SPOUSE, CHILDREN. HOUSING: OWNS HOME. DIET: REGULAR. LANGUAGE LANGUAGES SPOKEN:KOREAN NEW PATIENT PAIN DIARY TODAY'S VISITNOTES FROM 0-10, WHAT LEVEL IS YOUR PAIN TODAY?8 RECREATIONAL DRUG USE DRUG USE?NO EXERCISE: WALKS. LEARNING BARRIERS / SPECIAL NEEDS BARRIERS TO LEARNING?NO HEARING IMPAIRED?NO VISION IMPAIRED?NO COGNITIVELY IMPAIRED?NO READINESS TO LEARN?YES LEARNING PREFERENCES?NO LEARNING CAPABILITIES PRESENT?YES EMOTIONAL BARRIERS?NO PAIN CLINIC PFS, CLERGY, PUBLIC HEALTH REFERRALS PFS REFERRAL NEEDED?NO CLERGY REFERRAL NEEDED?NO PUBLIC HEALTH REFERRAL NEEDED?NO WAS THE PROVIDER NOTIFIED OF ANY PERTINENT INFO?NO HAS THE PATIENT BEEN EDUCATED REGARDING HIS/HER PLAN OF CARE?YES HAS THE PATIENT BEEN EDUCATED REGARDING PAIN, THE RISK FOR PAIN, THE IMPORTANCE OF EFFECTIVE PAIN MANAGEMENT, AND THE PAIN ASSESSMENT PROCESS?YES LATEX QUESTIONNAIRE LATEX ALLERGY : HAVE YOU EVER DEVELOPED ANY TYPE OF REACTION AFTER HANDLING LATEX PRODUCTS SUCH RUBBER GLOVES, CONDOMS, DIAPHRAGMS, BALLOONS, SOCKS, OR UNDERWEAR?NO LATEX ALLERGY : HAVE YOU EVER DEVELOPED ANY TYPE OF REACTION DURING OR AFTER DENTAL APPOINTMENT, VAGINAL/RECTAL EXAMINATION, SURGICAL PROCEDURE, OR ANY OTHER EXPOSURE?NO LATEX RISK : HAVE YOU EVER HAD ANY DIFFICULTY BREATHING OR HIVES AFTER EATING OR HANDLING ANY FRUITS, OR VEGETABLES; SUCH KIWI, BANANAS, STONE FRUITS, OR CHESTNUTSNO LATEX RISK : DO YOU HAVE A PREVIOUS PERSONAL HISTORY OF MORE THAN NINE SURGERIES, SPINA BIFIDA, OR REPEATED CATHERIZATIONS? NO LATEX RISK : ARE YOU FREQUENTLY EXPOSED TO LATEX PRODUCTS IN YOUR OCCUPATION?NO DATE ASKED : 10/05/2018 ADVANCE DIRECTIVE ADVANCE DIRECTIVE DISCUSSED WITH PATIENT:YES PT HAS NO ADVANCED DIRECTIVES, DECLINES HCP INFORMATION OR ASSISTANCE AT THIS TIME. 10/27/18 BV DENOMINATIONAL [id number] NONE NO TAOIST BELIEFS THAT WOULD IMPACT HEALTH CARE. MARITAL STATUS: . OCCUPATION: DISABLED. REVIEWED WITH PT 02/02/18 BVREVIEWED WITH PT 03/03/18 1232 LASREVIEWED WITH PATIENT 03/31/18 0945 JSREVIEWED WITH PT 08/25/18 1015 LASREVIEWED WITH PATIENT 10/05/18 1116 JSREVIEWED WITH PT 10/27/18 1058 BV. HOSPITALIZATION/MAJOR DIAGNOSTIC PROCEDURE SURGERY RELATED REVIEW OF SYSTEMS REVIEWED BY: PROVIDER: . CONSTITUTIONAL: ANY CHANGE IN YOUR MEDICAL CONDITION? NO . CHILLS NO . FEVER NO . INFECTION: DO YOU HAVE NEW INFECTIONS? NO . DO YOU HAVE HISTORY OF MRSA? NO . MUSCULOSKELETAL: ANY NEW PATTERNS OF PAIN OR NUMBNESS? NO . GASTROENTEROLOGY: ANY NEW CHANGE IN BOWEL CONTROL? NO . GENITOURINARY: ANY NEW CHANGE IN BLADDER CONTROL? NO . IS THERE A CHANCE YOU COULD BE ? NO . HEMATOLOGY/LYMPH: DO YOU TAKE ANY BLOOD THINNERS? (FOR EXAMPLE- COUMADIN, PLAVIX, AGGRENOX, PLATEL, PRADAXA, OR XARELTO) NO . WHEN WAS YOUR LAST DOSE? DATE: TIME: . NEUROLOGY: HAVE YOU FALLEN IN THE PAST 12 MONTHS? NO . ANY NEW EXTREMITY NUMBNESS OR WEAKNESS? NO . CARDIOLOGY: DO YOU HAVE A PACEMAKER OR DEFIBRILLATOR? NO . RESPIRATORY: HAVE YOU BEEN SICK IN THE PAST WEEK? NO . FEVER NO . FLU LIKE SYMPTOMS? NO . COUGH NO . INTEGUMENTARY: DO YOU HAVE ANY RASHES OR OPEN SORES? NO . ALLERGIC/IMMUNO: ARE YOU ALLERGIC TO IV DYE? NO . ANY NEW ALLERGIES? NO . PSYCHIATRIC: DO YOU HAVE THOUGHTS OF HURTING YOURSELF OR SOMEONE ELSE? NO . ARE YOU ABUSED, NEGLECTED, OR IN AN UNSAFE ENVIRONMENT? NO . ENDOCRINOLOGY: ARE YOU DIABETIC? YES FINGER STICK WAS 119 THIS AM . OTHER: DO YOU NEED ANY PRESCRIPTIONS? NO . IF YES, PLEASE LIST: ____ . ANY NEW PROBLEMS WITH YOUR MEDICATIONS? NO . WHEN DID YOU LAST EAT? ____LAST NIGHT 7 PM . WHEN DID YOU LAST DRINK? ____LAST NIGHT ABOUT 10 PM 02-01-19 . WHAT DID YOU LAST DRINK? ____WATER . NAME OF PERSON DRIVING YOU HOME? ____MOTHER . DO YOU HAVE ANY OTHER QUESTIONS OR CONCERNS NO . VITAL SIGNS WT 194.2 LBS, HT 71", BMI 27.08 INDEX, BP 181/114 MM HG, HR 70 /MIN, RR 18 /MIN, TEMP 97.8 F, OXYGEN SAT % 95%, SAFE IN ENV? (Y/N) KG, NA INITIALS SC 14:01, REVIEWED BY: KGRN IS AWARE OF PT"S BP. WILL RECHECK. ASSESSMENTS SPONDYLOSIS OF LUMBAR REGION WITHOUT MYELOPATHY OR RADICULOPATHY - M47.816 (PRIMARY) SPONDYLOSIS OF LUMBOSACRAL REGION WITHOUT MYELOPATHY OR RADICULOPATHY - M47.817 TREATMENT SPONDYLOSIS OF LUMBAR REGION WITHOUT MYELOPATHY OR RADICULOPATHY [facility] FACET BLOCK (PAIN)[id number] PROCEDURES PN WORKMANS' COMP OPINION IN YOUR OPINION, WAS THE INCIDENT THAT THE PATIENT DESCRIBED THE COMPETENT MEDICAL CAUSE OF THIS INJURY/ILLNESS? YES ARE THE PATIENT'S COMPLAINTS CONSISTENT WITH HIS/HER HISTORY OF THE INJURY/ILLNESS? YES IS THE PATIENT'S HISTORY OF THE INJURY/ILLNESS CONSISTENT WITH YOUR OBJECTIVE FINDING? YES WHAT IS THE PERCENTAGE OF TEMPORARY IMPAIRMENT? MODERATE TO MARKED = 66.7% IS THE PATIENT WORKING? NO DOCTOR ON SITE: AKIRA PINK MD PN LUMBAR FACET BLOCK THERAPEUTIC PRE PROCEDURE DIAGNOSIS LUMBAR SPONDYLOSIS, LUMBOSACRAL SPONDYLOSIS POST PROCEDURE DIAGNOSIS LUMBAR SPONDYLOSIS, LUMBOSACRAL SPONDYLOSIS PROCEDURE BILATERAL L4 - L5, L5 - S1 LUMBAR FACET THERAPEUTIC BLOCK SURGEON DR. AKIRA MEDRANO TESTER/LIFT TRUCKER NONE ANESTHESIA LOCAL PRE PROCEDURE NOTE THE PATIENT HAS A HISTORY OF CHRONIC LOW BACK PAIN. I EVALUATED THE PATIENT AND REVIEWED THE CHART. I WENT OVER THE RISKS, ALTERNATIVES, AND BENEFITS ASSOCIATED WITH THIS PROCEDURE. THE PATIENT WOULD LIKE TO PROCEED AND GIVE CONSENT TO PERFORMED THE PROCEDURE. THE PATIENT DENIES UNEXPLAINABLE WEIGHT LOSS, FEVER, CHILLS, OR NEW CHANGES IN URINARY OR BOWEL CONTROL DESCRIPTION OF PROCEDURE THE PATIENT WAS BROUGHT TO THE PROCEDURE ROOM AND PLACED IN THE PRONE POSITION. THE LUMBOSACRAL AREA WAS CLEANED WITH CHLORAPREP SOLUTION AND DRAPED ASEPTICALLY. THE PROCEDURE WAS DONE UNDER STERILE CONDITIONS. I CHECKED LATERALITY AND THE LEVEL WHERE THE PROCEDURE WAS GOING TO BE PERFORMED WITH THE PATIENT AND THE SUPPORTING STAFF AT THE MOMENT OF THE TIME OUT IN THE PROCEDURE ROOM. UNDER FLUOROSCOPIC GUIDANCE, THE TARGET POINT WAS SELECTED AT THE RIGHT AND LEFT L4-L5 AND RIGHT AND LEFT L5-S1 FACET JOINT. TARGET POINT WAS SELECTED AFTER LATERAL ROTATION AND TILT OF THE MAGNIFIER OF THE C-ARM. LIDOCAINE 0.5% WAS USED TO NUMB THE SKIN AND THE SUBCUTANEOUS TISSUE BELOW IT. SPINAL NEEDLES, 22-GAUGE, WERE ADVANCED UNDER FLUOROSCOPIC GUIDANCE AND FOLLOWING PATIENT FEEDBACK UNTIL THE TARGETS WERE TOUCHED. THE POSITION OF THE NEEDLES WAS VERIFIED WITH AP AND LATERAL VIEWS. AFTER PROPER POSITION OF THE NEEDLES WAS ACHIEVED, ISOVUE-M DYE 30% 0.1 ML WAS INJECTED SHOWING ADEQUATE SPREAD OF THE DYE. THEN A SOLUTION OF 1.9 ML OF BUPIVACAINE 0.125% OF KENALOG 10 MG WAS INJECTED AT EACH SITE. THERE WAS NO EVIDENCE OF BLOOD, PARESTHESIA OR CEREBROSPINAL FLUID DURING THE PROCEDURE. THE PATIENT WAS SENT TO THE RECOVERY ROOM. THE PATIENT WAS MOVING THE EXTREMITIES AND DOING WELL. THERE WAS NO COMPLICATION DURING THE PROCEDURE. FLUOROSCOPY TIME WAS 20 SECONDS POST PROCEDURE NOTE THE PATIENT WILL BE SEEN IN A FOLLOW UP IN THE NEXT FEW WEEKS. INSTRUCTIONS WERE GIVEN, QUESTIONS WERE ANSWERED, AND THE PATIENT EXPRESSED UNDERSTANDING AND AGREES WITH THE PLAN I, MAYCOL FLORES, DOCUMENTED THE ABOVE INFORMATION ACTING A SCRIBE FOR DR. MEDRANO. I HAVE REVIEWED THE ABOVE DOCUMENT, WRITTEN BY MAYCOL DENNISIBMarcelo AND I VERIFY THAT IT IS ACCURATE. PROCEDURE CODES 34960 INJ PARAVERT F JNT L/S 1 LEV, MODIFIERS: 50 [id number] INJ PARAVERT F JNT L/S 2 LEV, MODIFIERS: 50 [id number] RADXPS IN END [id number] PXD DISPOSITION & COMMUNICATION FOLLOW UP 3 WEEKS ELECTRONICALLY SIGNED BY AKIRA MEDRANO MD, MD ON 02/11/2019 AT 12:01 PM EDT DISCLAIMER : THIS IS A VISIT SUMMARY EXTRACTED FROM THE [employer] CHART. IT IS NOT A COPY OF THE [employer] PROGRESS NOTE. MTDD
== END ==
LOC: M PAIN 14:00
PROVIDERS: ATTEND Anesthesiology
DX: G89.29 Other chronic pain (principal); M47.816 Spondylosis without myelopathy or radiculopathy, lumbar region; M47.817 Spondylosis without myelopathy or radiculopathy, lumbosacral region; M96.1 Postlaminectomy syndrome, not elsewhere classified; I10 Essential (primary) hypertension; F17.210 Nicotine dependence, cigarettes, uncomplicated; Z79.84 Long term (current) use of oral hypoglycemic drugs; Z79.891 Long term (current) use of opiate analgesic; Z79.899 Other long term (current) drug therapy; J30.81 Allergic rhinitis due to animal (cat) (dog) hair and dander
CPT/HCPCS: 64493; 64494; J3301; Q9967

== ENCOUNTER → 2019-04-05 | Outpatient (CLI) | payer OTHER, MEDICARE ==
[~2019-04-05] MED LIST changes: -BUPIVACAINE HCL 0.25% 30 ML VIAL As Ordered ONE; -ISOVUE-M 300 61% 15ML VIAL (Q9967) As Ordered ONE; -LIDOCAINE 1% SDV INJ 30 ML VIAL As Ordered ONE; -TRIAMCINOLONE ACETONIDE SUSP 40 MG/ML VIAL (J3301) As Ordered ONE; -diazePAM 5 MG TAB As Ordered ONE; -oxyCODONE 5MG TAB As Ordered ONE
--- NOTE | 2019-04-20 01:54 | ECWPNPC ---
PATIENT NAME: PIERRE RIVAS : 1975 GENDER: MALE VISIT DATE: 04/05/2019 DISCHARGE DATE: 04/05/19 1217 VISIT LOCKED DATE TIME: PHYSICIAN: STANISLAV MIDDLETON RESOURCE: STANISLAV MIDDLETON REASON FOR APPOINTMENT 1. W/C POST PROC HISTORY OF PRESENT ILLNESS HISTORY OF PRESENT ILLNESS: HERE FOR POST PROCEDURE F/U.HAD BILAT. LFBT ON 02/02/19.REPORTING IMPROVEMENT IN PAIN INTENSITY AND IMPROVED ACTIVITY TOLERANCE.RATING LBP 12/01.THIS IS A W/C RELATED INJURY/CHRONIC PAIN WITH DOI:2003. PAIN THE PATIENT DESCRIBES THE PAIN... THE PATIENT DESCRIBES THE PAIN... FALL RISK SCREENING: SCREENING :NO FALLS REPORTED IN THE LAST YEAR CURRENT MEDICATIONS TAKING LOPRESSOR 100 MG TABLET 1 TABLET ORALLY ONCE DAILY TAKING LISINOPRIL-HYDROCHLOROTHIAZIDE 20-12.5 MG TABLET 1 TABLET ORALLY ONCE A DAY TAKING METFORMIN HCL 500 MG TABLET 1 TABLET WITH MEALS ORALLY DAILY TAKING NASAL SALINE 0.65 % SOLUTION 2 DROPS IN EACH NOSTRIL NEEDED NASALLY EVERY 2 HRS TAKING TYLENOL PM EXTRA STRENGTH 500-25 MG TABLET 1 TABLET AT BEDTIME NEEDED ORALLY ONCE A DAY TAKING METOPROLOL TARTRATE 25 MG TABLET 1 TABLET WITH FOOD ORALLY TWICE A DAY TAKING TRAMADOL HCL 50 MG TABLET 1 TABLET NEEDED ORALLY EVERY 6 HRS MDD4 TAKING LIDODERM 5 % PATCH 1 PATCH TO INTACT SKIN REMOVE AFTER 12 HOURS EXTERNALLY LOW BACK ONCE A DAY ON12 HR OFF 12H TAKING HYDROCODONE-ACETAMINOPHEN 7.5-325 MG TABLET 1-2 ORALLY Q4-6H MDD8 PRN FOR PAIN NOT-TAKING TRAMADOL HCL 50 MG TABLET 1-2 TAB ORALLY Q4-6 HR MDD 4, NOTES: DUPLICATE NOT-TAKING CO-ENZYME T90-FIFCFIR E 200-400 MG-UNIT WAFER DIRECTED ORALLY DAILY NOT-TAKING PENTOXIFYLLINE ER 400 MG TABLET EXTENDED RELEASE 1 TABLET WITH MEALS ORALLY DAILY NOT-TAKING VERAPAMIL HCL ER 240 MG CAPSULE EXTENDED RELEASE 24 HOUR 1 CAPSULE TOPICALLY WITH VITAMIN E OIL RUB ON PLAQUE DAILY ONCE A DAY NOT-TAKING VERAPAMIL HCL ER 240 MG CAPSULE EXTENDED RELEASE 24 HOUR 1 CAPSULE TOPICALLY ONCE A DAY NOT-TAKING COLCHICINE 0.6 MG TABLET 1 TABLET ORALLY ONCE A DAY NOT-TAKING POTABA 500 MG CAPSULE 4 CAPSULES WITH MEALS ORALLY SIX TIMES A DAY MEDICATION LIST REVIEWED AND RECONCILED WITH THE PATIENT PAST MEDICAL HISTORY POST LAMINECTOMY SYNDROME HYPERTENSION CHRONIC PAIN DM II ALLERGIES CATS, RAGWEED SURGICAL HISTORY BACK SURGERY (2) CYST RENMOVED FROM LEFT WRIST 1992 REPAIR TESTICLE 1989 FAMILY HISTORY FATHER: ALIVE MOTHER: ALIVE, DIAGNOSED WITH DIABETES, HYPERTENSION 1 BROTHER(S) , 1 SISTER(S) - HEALTHY. 1 SON(S) , 1 DAUGHTER(S) - HEALTHY. UNCLE - - LIVER DISEASE. SOCIAL HISTORY GENERAL: TOBACCO USE ARE YOU A:CURRENT SMOKER ARE YOU INTERESTED IN QUITTING?NOT READY TO QUIT SMOKES CIGARS ON OCCASSION COUNSELED THE PATIENT ON SMOKING EFFECTS, EDUCATION [id number]/12/2019 HOW OFTEN DO YOU SMOKE CIGARETTES?SOME DAYS, BUT NOT EVERY DAY PATIENT COUNSELED ON THE DANGERS OF TOBACCO USE AND URGED TO QUIT:04/05/2019 ADDITIONAL FINDINGS: TOBACCO USER SMOKES CIGARS AND NOT READY TO QUIT SMOKING CESSATION INFORMATION GIVEN06/10/2017 OTHERS AT HOME: SPOUSE, CHILDREN. HOUSING: OWNS HOME. DIET: REGULAR. LANGUAGE LANGUAGES SPOKEN:PORTUGUESE NEW PATIENT PAIN DIARY TODAY'S VISITNOTES FROM 0-10, WHAT LEVEL IS YOUR PAIN TODAY?8 RECREATIONAL DRUG USE DRUG USE?NO EXERCISE: WALKS. LEARNING BARRIERS / SPECIAL NEEDS BARRIERS TO LEARNING?NO HEARING IMPAIRED?NO VISION IMPAIRED?NO COGNITIVELY IMPAIRED?NO READINESS TO LEARN?YES LEARNING PREFERENCES?NO LEARNING CAPABILITIES PRESENT?YES EMOTIONAL BARRIERS?NO PAIN CLINIC PFS, CLERGY, PUBLIC HEALTH REFERRALS PFS REFERRAL NEEDED?NO CLERGY REFERRAL NEEDED?NO PUBLIC HEALTH REFERRAL NEEDED?NO WAS THE PROVIDER NOTIFIED OF ANY PERTINENT INFO?NO HAS THE PATIENT BEEN EDUCATED REGARDING HIS/HER PLAN OF CARE?YES HAS THE PATIENT BEEN EDUCATED REGARDING PAIN, THE RISK FOR PAIN, THE IMPORTANCE OF EFFECTIVE PAIN MANAGEMENT, AND THE PAIN ASSESSMENT PROCESS?YES LATEX QUESTIONNAIRE LATEX ALLERGY : HAVE YOU EVER DEVELOPED ANY TYPE OF REACTION AFTER HANDLING LATEX PRODUCTS SUCH RUBBER GLOVES, CONDOMS, DIAPHRAGMS, BALLOONS, SOCKS, OR UNDERWEAR?NO LATEX ALLERGY : HAVE YOU EVER DEVELOPED ANY TYPE OF REACTION DURING OR AFTER DENTAL APPOINTMENT, VAGINAL/RECTAL EXAMINATION, SURGICAL PROCEDURE, OR ANY OTHER EXPOSURE?NO LATEX RISK : HAVE YOU EVER HAD ANY DIFFICULTY BREATHING OR HIVES AFTER EATING OR HANDLING ANY FRUITS, OR VEGETABLES; SUCH KIWI, BANANAS, STONE FRUITS, OR CHESTNUTSNO LATEX RISK : DO YOU HAVE A PREVIOUS PERSONAL HISTORY OF MORE THAN NINE SURGERIES, SPINA BIFIDA, OR REPEATED CATHERIZATIONS? NO LATEX RISK : ARE YOU FREQUENTLY EXPOSED TO LATEX PRODUCTS IN YOUR OCCUPATION?NO DATE ASKED : 10/05/2018 ADVANCE DIRECTIVE ADVANCE DIRECTIVE DISCUSSED WITH PATIENT:YES PT HAS NO ADVANCED DIRECTIVES, DECLINES HCP INFORMATION OR ASSISTANCE AT THIS TIME. EVANGELICAL [id number] NONE NO LATTER-DAY BELIEFS THAT WOULD IMPACT HEALTH CARE. MARITAL STATUS: . OCCUPATION: DISABLED. REVIEWED WITH PT 02/02/18 BVREVIEWED WITH PT 03/03/18 1232 LASREVIEWED WITH PATIENT 03/31/18 0945 JSREVIEWED WITH PT 08/25/18 1015 LASREVIEWED WITH PATIENT 10/05/18 1116 JSREVIEWED WITH PT 10/27/18 1058 BVREVIEWED WITH PATIENT 04/05/19 1108 JS. HOSPITALIZATION/MAJOR DIAGNOSTIC PROCEDURE SURGERY RELATED REVIEW OF SYSTEMS REVIEWED BY: PROVIDER: STANISLAV KHAN . CONSTITUTIONAL: ANY CHANGE IN YOUR MEDICAL CONDITION? NO . CHILLS NO . FEVER NO . INFECTION: DO YOU HAVE NEW INFECTIONS? NO . DO YOU HAVE HISTORY OF MRSA? NO . MUSCULOSKELETAL: ANY NEW PATTERNS OF PAIN OR NUMBNESS? NO . GASTROENTEROLOGY: ANY NEW CHANGE IN BOWEL CONTROL? NO . GENITOURINARY: ANY NEW CHANGE IN BLADDER CONTROL? NO . IS THERE A CHANCE YOU COULD BE ? NO . HEMATOLOGY/LYMPH: DO YOU TAKE ANY BLOOD THINNERS? (FOR EXAMPLE- COUMADIN, PLAVIX, AGGRENOX, PLATEL, PRADAXA, OR XARELTO) NO . WHEN WAS YOUR LAST DOSE? DATE: TIME: . NEUROLOGY: HAVE YOU FALLEN IN THE PAST 12 MONTHS? YES, STATES FALL AT THE END OF FEBRUARY - SLIPPED AND FELL. STATES NO INJURIES, NO ED VISIT, NO IMAGING . ANY NEW EXTREMITY NUMBNESS OR WEAKNESS? NO . CARDIOLOGY: DO YOU HAVE A PACEMAKER OR DEFIBRILLATOR? NO . RESPIRATORY: HAVE YOU BEEN SICK IN THE PAST WEEK? NO . FEVER NO . FLU LIKE SYMPTOMS? NO . COUGH NO . INTEGUMENTARY: DO YOU HAVE ANY RASHES OR OPEN SORES? NO . ALLERGIC/IMMUNO: ARE YOU ALLERGIC TO IV DYE? NO . ANY NEW ALLERGIES? NO . PSYCHIATRIC: DO YOU HAVE THOUGHTS OF HURTING YOURSELF OR SOMEONE ELSE? NO . ARE YOU ABUSED, NEGLECTED, OR IN AN UNSAFE ENVIRONMENT? NO . ENDOCRINOLOGY: ARE YOU DIABETIC? YES . OTHER: DO YOU NEED ANY PRESCRIPTIONS? YES . IF YES, PLEASE LIST: ____LIDOCAINE PATCH . ANY NEW PROBLEMS WITH YOUR MEDICATIONS? NO . WHEN DID YOU LAST EAT? ____ . WHEN DID YOU LAST DRINK? ____ . WHAT DID YOU LAST DRINK? ____ . NAME OF PERSON DRIVING YOU HOME? ____ . DO YOU HAVE ANY OTHER QUESTIONS OR CONCERNS YES, WOULD LIKE INFORMATION ON HANDICAPPED PARKING . VITAL SIGNS WT 202.4 LBS, HT 71", BMI 28.23 INDEX, BP 182/118 MANUAL, HR 118 /MIN, RR 18 /MIN, TEMP 98.3 F, OXYGEN SAT % 98%, SAFE IN ENV? (Y/N) YES, NA INITIALS AW 1106, REVIEWED BY: REBECCA04/05/19 DISCUSSED ELEVATED BP WITH PATIENT. PATIENT HAS NOT TAKEN HIS BP MEDICATIONS HE IS GOING TO HIS DOCTOR'S TODAY TO DISCUSS ALTERING/CHANGING HIS BP MEDICATIONS. STANISLAV MIDDLETON NOTIFIED. JS. EXAMINATION GENERAL EXAMINATION: GENERALALERT,NO DISTRESS. PSYCHAFFECT NORMAL. LUNGS:LUNG SOUNDS ARE CLEAR. HEART:HEART RATE REGULAR. MUSCULOSKELETAL:MUSCLE STRENGTH TESTING 4/5 RIGHT--5/5 LEFT, PALPATION: POSITIVE FOR PAIN OVER L/S SPINE. POSITIVE FOR PAIN OVER L/S PARSPINALS.SPECIFIC POINT TENDERNESS OVER BILAT. L4/5-L5/S1 FACETS. DIAGNOSTIC TESTS REVIEWEDMRI L/S SPINE-2017. ASSESSMENTS SPONDYLOSIS OF LUMBAR REGION WITHOUT MYELOPATHY OR RADICULOPATHY - M47.816 (PRIMARY) TREATMENT SPONDYLOSIS OF LUMBAR REGION WITHOUT MYELOPATHY OR RADICULOPATHY CONTINUE TRAMADOL HCL TABLET, 50 MG, 1 TABLET NEEDED, ORALLY, EVERY 6 HRS MDD4 REFILL LIDODERM PATCH, 5 %, 1 PATCH TO INTACT SKIN REMOVE AFTER 12 HOURS, EXTERNALLY LOW BACK, ONCE A DAY ON12 HR OFF 12H, 30 DAY(S), 30, REFILLS 2 CONTINUE HYDROCODONE-ACETAMINOPHEN TABLET, 7.5-325 MG, 1-2, ORALLY, Q4-6H MDD8 PRN FOR PAIN NOTES: ISTOP REGISTRY REVIEWED AND DEMONSTRATES COMPLLIANCE. BRINGS IN MEDICATIONS WHICH IS APPROPRIATE FOR WHAT WAS DISPENSED. RECENT URINE TOXICOLOGY REVIEWED. NO UNAUTHORIZED MEDICATIONS. NO ILLICIT SUBSTANCES AND PRESCRIBED MEDICATIONS WERE PRESENT. URINE TOX TODAY, RISKS OF NARCOTIC/OPIOD MEDICATIONS INCLUDES BUT IS NOT LIMITED TO RISK OF DEPENDANCE/DEVELOPMENT OF ADDICTION, MOOD DISTURBANCE AND DEPRESSION, OSTEOPOROSIS, HORMONAL AND LABIDAL CHANGES, RESPIRATORY DEPRESSION AND . PATIENT IS ADVISED NOT TO DRIVE OR DRINK ALCOHOL WHILE ON THESE MEDICATIONS. PROCEDURE CODES FA211 ESTABILISHED PATIENT [facility] CHARGE DISPOSITION & COMMUNICATION FOLLOW UP 4-6 WKS (REASON: W/C) ELECTRONICALLY SIGNED BY ERIN GUTIÉRREZ ON 04/19/2019 AT 01:52 PM EST DISCLAIMER : THIS IS A VISIT SUMMARY EXTRACTED FROM THE [employer] CHART. IT IS NOT A COPY OF THE [employer] PROGRESS NOTE. KEMI
== END ==
LOC: M PAIN 10:45
PROVIDERS: ATTEND Nurse Practitioner Family
DX: M47.816 Spondylosis without myelopathy or radiculopathy, lumbar region (principal)

== ENCOUNTER → 2019-07-01 | Outpatient (CLI) | payer OTHER, MEDICARE ==
--- NOTE | 2019-07-07 02:35 | ECWPNPC ---
PATIENT NAME: PIERRE RIVAS : 1975 GENDER: MALE VISIT DATE: 07/01/2019 DISCHARGE DATE: 07/01/19 1215 VISIT LOCKED DATE TIME: PHYSICIAN: STANISLAV MIDDLETON RESOURCE: STANISLAV MIDDLETON REASON FOR APPOINTMENT 1. W/C, BACK HISTORY OF PRESENT ILLNESS HISTORY OF PRESENT ILLNESS: HERE FOR F/U OF CHRONIC LOW BACK PAIN.RATING PAIN 8/10 VAS.CURRENTLY USING HYDROCODONE 7.5MG Q4-6H PRN ,TRAMADOL 50MG 2 TAB BID AND LIDODERM PATCH. FINDS MEDICATIONS HELPFUL AT REDUCING PAIN AND KEEPING HIM FUNCTIONAL.DENIES SIDE EFECTS.OVER THE PAST 2 WEEKS PAIN IS ESCALATING IN LOW BACK.HAS RESPONDED WELL WITH LUMBAR FACET THERAPEUTIC BLOCKS IN PAST FOR SEVERE FLARES IN LOW BACK PAINTHIS IS A WORK RELATED INJURY WITH DOI-2003. PAIN THE PATIENT DESCRIBES THE PAIN... FALL RISK SCREENING: SCREENING :NO FALLS REPORTED IN THE LAST YEAR CURRENT MEDICATIONS TAKING LOPRESSOR 100 MG TABLET 1 TABLET ORALLY ONCE DAILY TAKING LISINOPRIL-HYDROCHLOROTHIAZIDE 20-12.5 MG TABLET 1 TABLET ORALLY ONCE A DAY TAKING METFORMIN HCL 500 MG TABLET 1 TABLET WITH MEALS ORALLY DAILY TAKING NASAL SALINE 0.65 % SOLUTION 2 DROPS IN EACH NOSTRIL NEEDED NASALLY EVERY 2 HRS TAKING TYLENOL PM EXTRA STRENGTH 500-25 MG TABLET 1 TABLET AT BEDTIME NEEDED ORALLY ONCE A DAY TAKING METOPROLOL TARTRATE 25 MG TABLET 1 TABLET WITH FOOD ORALLY TWICE A DAY TAKING TRAMADOL HCL 50 MG TABLET 1 TABLET NEEDED ORALLY EVERY 6 HRS MDD4 TAKING LIDODERM 5 % PATCH 1 PATCH TO INTACT SKIN REMOVE AFTER 12 HOURS EXTERNALLY LOW BACK ONCE A DAY ON12 HR OFF 12H TAKING HYDROCODONE-ACETAMINOPHEN 7.5-325 MG TABLET 1-2 ORALLY Q4-6H MDD8 PRN FOR PAIN NOT-TAKING TRAMADOL HCL 50 MG TABLET 1-2 TAB ORALLY Q4-6 HR MDD 4, NOTES: DUPLICATE NOT-TAKING CO-ENZYME [id number] E 200-400 MG-UNIT WAFER DIRECTED ORALLY DAILY NOT-TAKING PENTOXIFYLLINE ER 400 MG TABLET EXTENDED RELEASE 1 TABLET WITH MEALS ORALLY DAILY NOT-TAKING VERAPAMIL HCL ER 240 MG CAPSULE EXTENDED RELEASE 24 HOUR 1 CAPSULE TOPICALLY WITH VITAMIN E OIL RUB ON PLAQUE DAILY ONCE A DAY NOT-TAKING VERAPAMIL HCL ER 240 MG CAPSULE EXTENDED RELEASE 24 HOUR 1 CAPSULE TOPICALLY ONCE A DAY NOT-TAKING COLCHICINE 0.6 MG TABLET 1 TABLET ORALLY ONCE A DAY NOT-TAKING POTABA 500 MG CAPSULE 4 CAPSULES WITH MEALS ORALLY SIX TIMES A DAY MEDICATION LIST REVIEWED AND RECONCILED WITH THE PATIENT PAST MEDICAL HISTORY POST LAMINECTOMY SYNDROME HYPERTENSION CHRONIC PAIN DM II ALLERGIES CATS, RAGWEED SURGICAL HISTORY BACK SURGERY (2) CYST RENMOVED FROM LEFT WRIST 1992 REPAIR TESTICLE 1989 FAMILY HISTORY FATHER: ALIVE MOTHER: ALIVE, DIAGNOSED WITH DIABETES, HYPERTENSION 1 BROTHER(S) , 1 SISTER(S) - HEALTHY. 1 SON(S) , 1 DAUGHTER(S) - HEALTHY. UNCLE - - LIVER DISEASE. SOCIAL HISTORY GENERAL: TOBACCO USE ARE YOU A:CURRENT SMOKER HOW OFTEN DO YOU SMOKE CIGARETTES?SOME DAYS, BUT NOT EVERY DAY ARE YOU INTERESTED IN QUITTING?NOT READY TO QUIT SMOKES CIGARS ON OCCASSION ADDITIONAL FINDINGS: TOBACCO USER SMOKES CIGARS AND NOT READY TO QUIT PATIENT COUNSELED ON THE DANGERS OF TOBACCO USE AND URGED TO QUIT:04/05/2019 COUNSELED THE PATIENT ON SMOKING EFFECTS, EDUCATION [id number]/12/2019 SMOKING CESSATION INFORMATION GIVEN06/10/2017 OTHERS AT HOME: SPOUSE, CHILDREN. HOUSING: OWNS HOME. DIET: REGULAR. LANGUAGE LANGUAGES SPOKEN:LITHUANIAN NEW PATIENT PAIN DIARY TODAY'S VISITNOTES FROM 0-10, WHAT LEVEL IS YOUR PAIN TODAY?8 RECREATIONAL DRUG USE DRUG USE?NO EXERCISE: WALKS. LEARNING BARRIERS / SPECIAL NEEDS BARRIERS TO LEARNING?NO HEARING IMPAIRED?NO VISION IMPAIRED?NO COGNITIVELY IMPAIRED?NO READINESS TO LEARN?YES LEARNING PREFERENCES?NO LEARNING CAPABILITIES PRESENT?YES EMOTIONAL BARRIERS?NO PAIN CLINIC PFS, CLERGY, PUBLIC HEALTH REFERRALS PFS REFERRAL NEEDED?NO CLERGY REFERRAL NEEDED?NO PUBLIC HEALTH REFERRAL NEEDED?NO WAS THE PROVIDER NOTIFIED OF ANY PERTINENT INFO?NO HAS THE PATIENT BEEN EDUCATED REGARDING HIS/HER PLAN OF CARE?YES HAS THE PATIENT BEEN EDUCATED REGARDING PAIN, THE RISK FOR PAIN, THE IMPORTANCE OF EFFECTIVE PAIN MANAGEMENT, AND THE PAIN ASSESSMENT PROCESS?YES LATEX QUESTIONNAIRE LATEX ALLERGY : HAVE YOU EVER DEVELOPED ANY TYPE OF REACTION AFTER HANDLING LATEX PRODUCTS SUCH RUBBER GLOVES, CONDOMS, DIAPHRAGMS, BALLOONS, SOCKS, OR UNDERWEAR?NO LATEX ALLERGY : HAVE YOU EVER DEVELOPED ANY TYPE OF REACTION DURING OR AFTER DENTAL APPOINTMENT, VAGINAL/RECTAL EXAMINATION, SURGICAL PROCEDURE, OR ANY OTHER EXPOSURE?NO DATE ASKED : 10/05/2018 LATEX RISK : HAVE YOU EVER HAD ANY DIFFICULTY BREATHING OR HIVES AFTER EATING OR HANDLING ANY FRUITS, OR VEGETABLES; SUCH KIWI, BANANAS, STONE FRUITS, OR CHESTNUTSNO LATEX RISK : DO YOU HAVE A PREVIOUS PERSONAL HISTORY OF MORE THAN NINE SURGERIES, SPINA BIFIDA, OR REPEATED CATHERIZATIONS? NO LATEX RISK : ARE YOU FREQUENTLY EXPOSED TO LATEX PRODUCTS IN YOUR OCCUPATION?NO ADVANCE DIRECTIVE ADVANCE DIRECTIVE DISCUSSED WITH PATIENT:YES PT HAS NO ADVANCED DIRECTIVES, DECLINES HCP INFORMATION OR ASSISTANCE AT THIS TIME. 07/01/19 HOLINESS [id number] NONE NO BAPTIST BELIEFS THAT WOULD IMPACT HEALTH CARE. MARITAL STATUS: . OCCUPATION: DISABLED. REVIEWED WITH PT 02/02/18 BVREVIEWED WITH PT 03/03/18 1232 LASREVIEWED WITH PATIENT 03/31/18 0945 JSREVIEWED WITH PT 08/25/18 1015 LASREVIEWED WITH PATIENT 10/05/18 1116 JSREVIEWED WITH PT 10/27/18 1058 BVREVIEWED WITH PATIENT 04/05/19 1108 JSREVIEWED WITH PATIENT 07/01/19 1139 BV. HOSPITALIZATION/MAJOR DIAGNOSTIC PROCEDURE SURGERY RELATED REVIEW OF SYSTEMS REVIEWED BY: PROVIDER: STANISLAV KHAN . CONSTITUTIONAL: ANY CHANGE IN YOUR MEDICAL CONDITION? NO . CHILLS NO . FEVER NO . INFECTION: DO YOU HAVE NEW INFECTIONS? NO . DO YOU HAVE HISTORY OF MRSA? NO . MUSCULOSKELETAL: ANY NEW PATTERNS OF PAIN OR NUMBNESS? NO . GASTROENTEROLOGY: ANY NEW CHANGE IN BOWEL CONTROL? NO . GENITOURINARY: ANY NEW CHANGE IN BLADDER CONTROL? NO . IS THERE A CHANCE YOU COULD BE ? NO . HEMATOLOGY/LYMPH: DO YOU TAKE ANY BLOOD THINNERS? (FOR EXAMPLE- COUMADIN, PLAVIX, AGGRENOX, PLATEL, PRADAXA, OR XARELTO) NO . WHEN WAS YOUR LAST DOSE? DATE: TIME: . NEUROLOGY: HAVE YOU FALLEN IN THE PAST 12 MONTHS? NO . ANY NEW EXTREMITY NUMBNESS OR WEAKNESS? NO . CARDIOLOGY: DO YOU HAVE A PACEMAKER OR DEFIBRILLATOR? NO . RESPIRATORY: HAVE YOU BEEN SICK IN THE PAST WEEK? NO . FEVER NO . FLU LIKE SYMPTOMS? NO . COUGH NO . INTEGUMENTARY: DO YOU HAVE ANY RASHES OR OPEN SORES? NO . ALLERGIC/IMMUNO: ARE YOU ALLERGIC TO IV DYE? NO . ANY NEW ALLERGIES? NO . PSYCHIATRIC: DO YOU HAVE THOUGHTS OF HURTING YOURSELF OR SOMEONE ELSE? NO . ARE YOU ABUSED, NEGLECTED, OR IN AN UNSAFE ENVIRONMENT? NO . ENDOCRINOLOGY: ARE YOU DIABETIC? NO . OTHER: DO YOU NEED ANY PRESCRIPTIONS? NO . IF YES, PLEASE LIST: ____ . ANY NEW PROBLEMS WITH YOUR MEDICATIONS? NO . WHEN DID YOU LAST EAT? ____ . WHEN DID YOU LAST DRINK? ____ . WHAT DID YOU LAST DRINK? ____ . NAME OF PERSON DRIVING YOU HOME? ____ . DO YOU HAVE ANY OTHER QUESTIONS OR CONCERNS NO . VITAL SIGNS WT 200.1 LBS, HT 71", BMI 27.91 INDEX, BP 197/116 MM HG, HR 104 /MIN, RR 18 /MIN, TEMP 96.9 F, OXYGEN SAT % 98%, NA INITIALS AW 1130, REVIEWED BY: BV. EXAMINATION GENERAL EXAMINATION: GENERALALERT,NO DISTRESS. PSYCHAFFECT NORMAL. LUNGS:LUNG SOUNDS ARE CLEAR. HEART:HEART RATE REGULAR. MUSCULOSKELETAL:MUSCLE STRENGTH TESTING 4/5 RIGHT--5/5 LEFT, PALPATION: POSITIVE FOR PAIN OVER L/S SPINE. POSITIVE FOR PAIN OVER L/S PARSPINALS.SPECIFIC POINT TENDERNESS OVER BILAT. L4/5-L5/S1 FACETS. DIAGNOSTIC TESTS REVIEWEDMRI L/S SPINE-2017. ASSESSMENTS SPONDYLOSIS OF LUMBAR REGION WITHOUT MYELOPATHY OR RADICULOPATHY - M47.816 TREATMENT SPONDYLOSIS OF LUMBAR REGION WITHOUT MYELOPATHY OR RADICULOPATHY CONTINUE TRAMADOL HCL TABLET, 50 MG, 1 TABLET NEEDED, ORALLY, EVERY 6 HRS MDD4 CONTINUE LIDODERM PATCH, 5 %, 1 PATCH TO INTACT SKIN REMOVE AFTER 12 HOURS, EXTERNALLY LOW BACK, ONCE A DAY ON12 HR OFF 12H CONTINUE HYDROCODONE-ACETAMINOPHEN TABLET, 7.5-325 MG, 1-2, ORALLY, Q4-6H MDD8 PRN FOR PAIN CONTINUE TRAMADOL HCL TABLET, 50 MG, 1-2 TAB, ORALLY, Q4-6 HR MDD 4, NOTES: DUPLICATE NOTES: ISTOP REGISTRY REVIEWED AND DEMONSTRATES COMPLLIANCE. (REF # ) BRINGS IN MEDICATIONS WHICH IS APPROPRIATE FOR WHAT WAS DISPENSED. RECENT URINE TOXICOLOGY REVIEWED. NO UNAUTHORIZED MEDICATIONS. NO ILLICIT SUBSTANCES AND PRESCRIBED MEDICATIONS WERE PRESENT. , RISKS OF NARCOTIC/OPIOD MEDICATIONS INCLUDES BUT IS NOT LIMITED TO RISK OF DEPENDANCE/DEVELOPMENT OF ADDICTION, MOOD DISTURBANCE AND DEPRESSION, OSTEOPOROSIS, HORMONAL AND LABIDAL CHANGES, RESPIRATORY DEPRESSION AND . PATIENT IS ADVISED NOT TO DRIVE OR DRINK ALCOHOL WHILE ON THESE MEDICATIONS. OTHERS NOTES: BILAT L4/5-L5/S1 LFBT. PROCEDURES PN WORKMANS' COMP OPINION IN YOUR OPINION, WAS THE INCIDENT THAT THE PATIENT DESCRIBED THE COMPETENT MEDICAL CAUSE OF THIS INJURY/ILLNESS? YES ARE THE PATIENT'S COMPLAINTS CONSISTENT WITH HIS/HER HISTORY OF THE INJURY/ILLNESS? YES IS THE PATIENT'S HISTORY OF THE INJURY/ILLNESS CONSISTENT WITH YOUR OBJECTIVE FINDING? YES WHAT IS THE PERCENTAGE OF TEMPORARY IMPAIRMENT? MODERATE TO MARKED = 66.7% IS THE PATIENT WORKING? NO DOCTOR ON SITE: AKIRA PINK MD PREVENTIVE MEDICINE PAIN CLINIC TEACHING: PROCEDURE TEACHING PT GIVEN WRITTEN AND VERBAL PRE PROCEDURE INSTRUCTIONS. PT VERBALIZES UNDERSTANDING OF ALL INSTRUCTIONS, STATING HE HAS HAD THIS PROCEDURE IN THE PAST. BUDDY AVERY 07/01/2019 12:13:52 PM > . PROCEDURE CODES FA211 ESTABILISHED PATIENT FORMERLY [facility] CHARGE DISPOSITION & COMMUNICATION FOLLOW UP POST (REASON: BILAT L4/5-L5/S1 LFBT-W/C) ELECTRONICALLY SIGNED BY ERIN GUTIÉRREZ ON 07/06/2019 AT 01:19 PM EST DISCLAIMER : THIS IS A VISIT SUMMARY EXTRACTED FROM THE [employer] CHART. IT IS NOT A COPY OF THE [employer] PROGRESS NOTE. KEMI
== END ==
LOC: M PAIN 11:30
PROVIDERS: ATTEND Nurse Practitioner Family
DX: M47.816 Spondylosis without myelopathy or radiculopathy, lumbar region (principal); G89.29 Other chronic pain; I10 Essential (primary) hypertension; E11.9 Type 2 diabetes mellitus without complications; F17.290 Nicotine dependence, other tobacco product, uncomplicated; Z79.84 Long term (current) use of oral hypoglycemic drugs; Z79.891 Long term (current) use of opiate analgesic; Z79.899 Other long term (current) drug therapy

== ENCOUNTER → 2019-09-26 | Outpatient (CLI) | payer MEDICARE, OTHER | LOC: M LABSMTC 14:09 | PROVIDERS: ATTEND Anesthesiology | DX: Z03.818 Encounter for observation for suspected exposure to other biological agents ruled out (principal) ==

== ENCOUNTER → 2019-09-29 | Outpatient (CLI) | payer OTHER, MEDICARE ==
--- NOTE | 2019-10-01 02:11 | ECWPNPC ---
PATIENT NAME: PIERRE RIVAS : 1975 GENDER: MALE VISIT DATE: 09/29/2019 DISCHARGE DATE: 09/29/19 1050 VISIT LOCKED DATE TIME: PHYSICIAN: AKIRA MEDRANO MD RESOURCE: AKIRA MEDRANO MD REASON FOR APPOINTMENT 1. W/C LUMBAR FACET HISTORY OF PRESENT ILLNESS HISTORY OF PRESENT ILLNESS: 44-YEAR-OLD MALE PATIENT WITH A HISTORY OF CHRONIC LOW BACK PAIN. THE PATIENT DESCRIBES THE PAIN ACHING AND SEVERE WITH A PAIN SCORE RANGING FROM 7-10/10 DEPENDING ON PHYSICAL ACTIVITY. 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 THE PATIENT CAME IN TODAY TO FACET BLOCKS. THE PATIENT WAS INJURED AT WORK WHILE WORKING FOR [employer] MANY YEARS AGO. THE PATIENT DENIES UNEXPLAINABLE WEIGHT LOSS, FEVER, CHILLS, NEW CHANGES ON HIS URINARY OR BOWEL CONTROL. PAIN THE PATIENT DESCRIBES THE PAIN... FALL RISK SCREENING: SCREENING :NO FALLS REPORTED IN THE LAST YEAR CURRENT MEDICATIONS TAKING LOPRESSOR 100 MG TABLET 1 TABLET ORALLY ONCE DAILY, NOTES: 09/26 TAKING LISINOPRIL-HYDROCHLOROTHIAZIDE 20-12.5 MG TABLET 1 TABLET ORALLY ONCE A DAY, NOTES: 09/26 TAKING METFORMIN HCL 500 MG TABLET 1 TABLET WITH MEALS ORALLY DAILY, NOTES: 09/26 TAKING NASAL SALINE 0.65 % SOLUTION 2 DROPS IN EACH NOSTRIL NEEDED NASALLY EVERY 2 HRS, NOTES: 09/28 TAKING TYLENOL PM EXTRA STRENGTH 500-25 MG TABLET 1 TABLET AT BEDTIME NEEDED ORALLY ONCE A DAY, NOTES: 09/28 1999 TAKING METOPROLOL TARTRATE 25 MG TABLET 1 TABLET WITH FOOD ORALLY TWICE A DAY, NOTES: 09/26 TAKING TRAMADOL HCL 50 MG TABLET 1 TABLET NEEDED ORALLY EVERY 6 HRS MDD4, NOTES: 09/27 1500 TAKING LIDODERM 5 % PATCH 1 PATCH TO INTACT SKIN REMOVE AFTER 12 HOURS EXTERNALLY LOW BACK ONCE A DAY ON12 HR OFF 12H, NOTES: 09/26 TAKING HYDROCODONE-ACETAMINOPHEN 7.5-325 MG TABLET 1-2 ORALLY Q4-6H MDD8 PRN FOR PAIN, NOTES: 09/27 2330 NOT-TAKING CO-ENZYME [id number] E 200-400 MG-UNIT WAFER DIRECTED ORALLY DAILY NOT-TAKING PENTOXIFYLLINE ER 400 MG TABLET EXTENDED RELEASE 1 TABLET WITH MEALS ORALLY DAILY NOT-TAKING VERAPAMIL HCL ER 240 MG CAPSULE EXTENDED RELEASE 24 HOUR 1 CAPSULE TOPICALLY WITH VITAMIN E OIL RUB ON PLAQUE DAILY ONCE A DAY NOT-TAKING VERAPAMIL HCL ER 240 MG CAPSULE EXTENDED RELEASE 24 HOUR 1 CAPSULE TOPICALLY ONCE A DAY NOT-TAKING COLCHICINE 0.6 MG TABLET 1 TABLET ORALLY ONCE A DAY NOT-TAKING POTABA 500 MG CAPSULE 4 CAPSULES WITH MEALS ORALLY SIX TIMES A DAY DISCONTINUED TRAMADOL HCL 50 MG TABLET 1-2 TAB ORALLY Q4-6 HR MDD 4, NOTES: DUPLICATE MEDICATION LIST REVIEWED AND RECONCILED WITH THE PATIENT PAST MEDICAL HISTORY POST LAMINECTOMY SYNDROME HYPERTENSION CHRONIC PAIN DM II ALLERGIES CATS, RAGWEED SURGICAL HISTORY BACK SURGERY (2) CYST RENMOVED FROM LEFT WRIST 1992 REPAIR TESTICLE 1989 FAMILY HISTORY FATHER: ALIVE MOTHER: ALIVE, DIAGNOSED WITH DIABETES, HYPERTENSION 1 BROTHER(S) , 1 SISTER(S) - HEALTHY. 1 SON(S) , 1 DAUGHTER(S) - HEALTHY. UNCLE - - LIVER DISEASE. SOCIAL HISTORY GENERAL: TOBACCO USE ARE YOU A:CURRENT SMOKER ARE YOU INTERESTED IN QUITTING?NOT READY TO QUIT SMOKES CIGARS ON OCCASSION COUNSELED THE PATIENT ON SMOKING EFFECTS, EDUCATION [id number]/12/2019 HOW OFTEN DO YOU SMOKE CIGARETTES?SOME DAYS, BUT NOT EVERY DAY PATIENT COUNSELED ON THE DANGERS OF TOBACCO USE AND URGED TO QUIT:09/28/2019 ADDITIONAL FINDINGS: TOBACCO USER SMOKES CIGARS AND NOT READY TO QUIT SMOKING CESSATION INFORMATION GIVEN06/10/2017 LATEX QUESTIONNAIRE LATEX ALLERGY : HAVE YOU EVER DEVELOPED ANY TYPE OF REACTION AFTER HANDLING LATEX PRODUCTS SUCH RUBBER GLOVES, CONDOMS, DIAPHRAGMS, BALLOONS, SOCKS, OR UNDERWEAR?NO LATEX ALLERGY : HAVE YOU EVER DEVELOPED ANY TYPE OF REACTION DURING OR AFTER DENTAL APPOINTMENT, VAGINAL/RECTAL EXAMINATION, SURGICAL PROCEDURE, OR ANY OTHER EXPOSURE?NO LATEX RISK : HAVE YOU EVER HAD ANY DIFFICULTY BREATHING OR HIVES AFTER EATING OR HANDLING ANY FRUITS, OR VEGETABLES; SUCH KIWI, BANANAS, STONE FRUITS, OR CHESTNUTSNO LATEX RISK : DO YOU HAVE A PREVIOUS PERSONAL HISTORY OF MORE THAN NINE SURGERIES, SPINA BIFIDA, OR REPEATED CATHERIZATIONS? NO LATEX RISK : ARE YOU FREQUENTLY EXPOSED TO LATEX PRODUCTS IN YOUR OCCUPATION?NO DATE ASKED : 09/28/2019 RECREATIONAL DRUG USE DRUG USE?NO TAOIST [id number] NONE NO YAZIDI BELIEFS THAT WOULD IMPACT HEALTH CARE. LANGUAGE LANGUAGES SPOKEN:[place]IZ[place] LEARNING BARRIERS / SPECIAL NEEDS BARRIERS TO LEARNING?NO HEARING IMPAIRED?NO VISION IMPAIRED?NO COGNITIVELY IMPAIRED?NO READINESS TO LEARN?YES LEARNING PREFERENCES?NO LEARNING CAPABILITIES PRESENT?YES EMOTIONAL BARRIERS?NO OCCUPATION: DISABLED. DIET: REGULAR. EXERCISE: WALKS. MARITAL STATUS: . OTHERS AT HOME: SPOUSE, CHILDREN. NEW PATIENT PAIN DIARY TODAY'S VISITNOTES 09/28/2019 PATIENT DESCRIBES PAIN :ACHING, HAVE IT ALL THE TIME, SHARP, STABBING, TENDER, THROBBING, SORE, SHOOTING FROM 0-10, WHAT LEVEL IS YOUR PAIN TODAY?8 PAIN CLINIC PFS, CLERGY, PUBLIC HEALTH REFERRALS PFS REFERRAL NEEDED?NO CLERGY REFERRAL NEEDED?NO PUBLIC HEALTH REFERRAL NEEDED?NO WAS THE PROVIDER NOTIFIED OF ANY PERTINENT INFO?YES HAS THE PATIENT BEEN EDUCATED REGARDING HIS/HER PLAN OF CARE?YES HAS THE PATIENT BEEN EDUCATED REGARDING PAIN, THE RISK FOR PAIN, THE IMPORTANCE OF EFFECTIVE PAIN MANAGEMENT, AND THE PAIN ASSESSMENT PROCESS?YES HOUSING: OWNS HOME. ADVANCE DIRECTIVE ADVANCE DIRECTIVE DISCUSSED WITH PATIENT:YES PT HAS NO ADVANCED DIRECTIVES, DECLINES HCP INFORMATION OR ASSISTANCE AT THIS TIME PAT DONE 09/28/2019 DS. HOSPITALIZATION/MAJOR DIAGNOSTIC PROCEDURE SURGERY RELATED REVIEW OF SYSTEMS REVIEWED BY: PROVIDER: AKIRA MEDRANO MD . CONSTITUTIONAL: ANY CHANGE IN YOUR MEDICAL CONDITION? NO . CHILLS NO . FEVER NO . INFECTION: DO YOU HAVE NEW INFECTIONS? NO . DO YOU HAVE HISTORY OF MRSA? NO . MUSCULOSKELETAL: ANY NEW PATTERNS OF PAIN OR NUMBNESS? NO . GASTROENTEROLOGY: ANY NEW CHANGE IN BOWEL CONTROL? NO . GENITOURINARY: ANY NEW CHANGE IN BLADDER CONTROL? NO . IS THERE A CHANCE YOU COULD BE ? NO . HEMATOLOGY/LYMPH: DO YOU TAKE ANY BLOOD THINNERS? (FOR EXAMPLE- COUMADIN, PLAVIX, AGGRENOX, PLATEL, PRADAXA, OR XARELTO) NO . WHEN WAS YOUR LAST DOSE? DATE: TIME: . NEUROLOGY: HAVE YOU FALLEN IN THE PAST 12 MONTHS? YES, PT STATES THAT HE FELL WHILE AT HOME, NO INJURY, NO REPORT TO ED . ANY NEW EXTREMITY NUMBNESS OR WEAKNESS? NO . CARDIOLOGY: DO YOU HAVE A PACEMAKER OR DEFIBRILLATOR? NO . RESPIRATORY: HAVE YOU BEEN SICK IN THE PAST WEEK? NO . FEVER NO . FLU LIKE SYMPTOMS? NO . COUGH NO . INTEGUMENTARY: DO YOU HAVE ANY RASHES OR OPEN SORES? NO . ALLERGIC/IMMUNO: ARE YOU ALLERGIC TO IV DYE? NO . ANY NEW ALLERGIES? NO . PSYCHIATRIC: DO YOU HAVE THOUGHTS OF HURTING YOURSELF OR SOMEONE ELSE? NO . ARE YOU ABUSED, NEGLECTED, OR IN AN UNSAFE ENVIRONMENT? NO . ENDOCRINOLOGY: ARE YOU DIABETIC? YES, PT TAKING METFORMIN, WILL HOLD ON 09/29/2019 DS FSBS 121 @0700 09/29/19 . OTHER: DO YOU NEED ANY PRESCRIPTIONS? NO . IF YES, PLEASE LIST: ____ . ANY NEW PROBLEMS WITH YOUR MEDICATIONS? NO . WHEN DID YOU LAST EAT? 09/27 1800 . WHEN DID YOU LAST DRINK? 09/28 0600 . WHAT DID YOU LAST DRINK? SIP OF WATER . NAME OF PERSON DRIVING YOU HOME? BROTHER-JUAN F . DO YOU HAVE ANY OTHER QUESTIONS OR CONCERNS NO PT HAS NOT HAD ANY VACCINES IN THE PAST [address] MEDRANO AWARE OF B/P . VITAL SIGNS WT 197 LBS, HT 71", BMI 27.47 INDEX, BP 172/111 MM HG, REPEAT BP 194/120MANUAL, HR 109 /MIN, RR 18 /MIN, TEMP 97.4 F, OXYGEN SAT % 98%, SAFE IN ENV? (Y/N) Y, NA INITIALS AW 0920, REVIEWED BY: AD. EXAMINATION GENERAL EXAMINATION: THE PATIENT IS ALERT, ORIENTED TIMES THREE AND COOPERATIVE. THE PATIENT IS HAVING TENDERNESS OVER HIS LOW BACK AND PARASPINOUS MUSCLE. HE IS HAVING INCREASING PAIN OVER HIS FACETS. ASSESSMENTS SPONDYLOSIS OF LUMBAR REGION WITHOUT MYELOPATHY OR RADICULOPATHY - M47.816 (PRIMARY) SPONDYLOSIS OF LUMBOSACRAL REGION WITHOUT MYELOPATHY OR RADICULOPATHY - M47.817 LUMBAR POST-LAMINECTOMY SYNDROME - M96.1 TREATMENT SPONDYLOSIS OF LUMBAR REGION WITHOUT MYELOPATHY OR RADICULOPATHY CLINICAL NOTES: WE DISCUSSED SEVERAL ALTERNATIVES WITH MR. RIVAS REGARDING HIS TREATMENT OPTIONS AND CARE. THE PATIENT CAME IN FOR FACET BLOCKS TODAY; HOWEVER, HIS BLOOD PRESSURE WAS VERY HIGH AT 194/120. WE HAVE DECIDED TO POSTPONE THE PROCEDURE UNTIL HE TALKS TO HIS PRIMARY CARE DOCTOR. HE WILL CALL HIS PRIMARY CARE DOCTOR TODAY AND CALL US BACK TO RESCHEDULE HIS PROCEDURE AFTER. I, VAIBHAV LEE, DOCUMENTED THE ABOVE INFORMATION ACTING A SCRIBE FOR DR. MEDRANO. I HAVE REVIEWED THE ABOVE DOCUMENT, WRITTEN BY VAIBHAV LEE, HYDROLOGIC MODELER, AND I VERIFY THAT IT IS ACCURATE. PROCEDURES PN WORKMANS' COMP OPINION IN YOUR OPINION, WAS THE INCIDENT THAT THE PATIENT DESCRIBED THE COMPETENT MEDICAL CAUSE OF THIS INJURY/ILLNESS? YES ARE THE PATIENT'S COMPLAINTS CONSISTENT WITH HIS/HER HISTORY OF THE INJURY/ILLNESS? YES IS THE PATIENT'S HISTORY OF THE INJURY/ILLNESS CONSISTENT WITH YOUR OBJECTIVE FINDING? YES WHAT IS THE PERCENTAGE OF TEMPORARY IMPAIRMENT? MODERATE TO MARKED = 66.7% IS THE PATIENT WORKING? NO DOCTOR ON SITE: AKIRA PINK MD DISPOSITION & COMMUNICATION FOLLOW UP PATIENT WILL CALL TO RESCHEDULE (REASON: LOW BACK PAIN) ELECTRONICALLY SIGNED BY AKIRA MEDRANO MD, MD ON 09/30/2019 AT 09:07 AM EDT DISCLAIMER : THIS IS A VISIT SUMMARY EXTRACTED FROM THE [employer] CHART. IT IS NOT A COPY OF THE [employer] PROGRESS NOTE. KEMI
== END ==
LOC: M PAIN 09:45
PROVIDERS: ATTEND Anesthesiology
DX: M47.816 Spondylosis without myelopathy or radiculopathy, lumbar region (principal); M47.817 Spondylosis without myelopathy or radiculopathy, lumbosacral region; M96.1 Postlaminectomy syndrome, not elsewhere classified; I10 Essential (primary) hypertension; E11.9 Type 2 diabetes mellitus without complications; F17.290 Nicotine dependence, other tobacco product, uncomplicated; Z79.84 Long term (current) use of oral hypoglycemic drugs; Z79.891 Long term (current) use of opiate analgesic; Z79.899 Other long term (current) drug therapy

== ENCOUNTER → 2019-12-08 | Outpatient (CLI) | payer OTHER, MEDICARE ==
[~2019-12-08] MED LIST changes: +BUPIVACAINE HCL 0.25% 30ML VIAL As Ordered ONE; +ISOVUE-M 300 61% 15ML VIAL As Ordered ONE; +LIDOCAINE 1% SDV 30ML VIAL As Ordered ONE; +TRIAMCINOLONE ACETONIDE SUSP 40 MG/ML VIAL (J3301) As Ordered ONE; +diazePAM 5 MG TAB As Ordered ONE; +oxyCODONE 5MG TAB As Ordered ONE
--- NOTE | 2019-12-08 13:47 | REP ---
C-ARM VIEWS OF THE LOWER LUMBAR SPINE: CLINICAL HISTORY: Pain. Four C-arm views of the lumbar spine performed during bilateral facet injection of the lower lumbar spine by Dr. Leblanc. There is a metallic internal fixation of the lower lumbar spine. [place] are seen along the lower lumbar fact joints bilaterally. 27 seconds of fluoroscopy time utilized. Electronically Signed by Mayur Toure MD 12/11/2019 11:41 P
--- NOTE | 2019-12-10 00:59 | ECWPNPC ---
PATIENT NAME: PIERRE RIVAS : 1975 GENDER: MALE VISIT DATE: 12/08/2019 DISCHARGE DATE: 12/08/19 1221 VISIT LOCKED DATE TIME: PHYSICIAN: AKIRA MEDRANO MD RESOURCE: AKIRA MEDRANO MD REASON FOR APPOINTMENT 1. W/C BILAT L4/5-L5/S1 LFBT PAT DONE HISTORY OF PRESENT ILLNESS GENERAL: -. FALL RISK SCREENING: SCREENING :ONE FALL WITHOUT INJURY IN THE PAST YEAR PAIN SCREENING: PATIENT HAS A COMPLAINT OF ACUTE OR CHRONIC PAIN :YES LOCATION OF PAIN:LOW BACK RIGHT MORE PAINFUL INTENSITY OF PAIN (SCALE OF 1 TO 10):7 WHAT DOES YOUR PAIN FEEL LIKE:ACHING, CONTINOUS, SHARP, STABBING, TENDER, THROBBING, SORE, SHOOTING NURSING NOTE: -. PAIN CENTER INTAKE QUESTIONS: DO YOU HAVE A HISTORY OF MRSA? :NO DO YOU TAKE A BLOOD THINNERS? :NO DO YOU HAVE ANY BLEEDING DISORDERS? :NO ANY NEW NUMBNESS OR WEAKNESS IN YOUR LEGS OR ARMS? :NO ANY PACEMAKER,DEFIBRILLATOR, OR DORSAL COLUMN STIMULATOR? :NO DO YOU HAVE ANY RASHES OR OPEN SORES? :NO ARE YOU ALLERGIC TO IV DYE? :NO ARE YOU DIABETIC? :YES MANAGED WITH METFORMIN, FSBS 119 AT 0900 PER PT. ANY NEW PROBLEMS WITH YOUR MEDICATIONS? :NO HAVE YOU RECEIVED A VACCINE IN THE PAST 30 DAYS? :NO DO YOU PLAN TO RECEIVE A VACCINE IN THE NEXT 21 DAYS? :NO DO YOU NEED ANY PRESCRIPTION? :NO DO YOU TAKE ANY IMMUNOSUPPRESSIVE MEDICATIONS? :NO ANY HISTORY OF SEIZURES? :NO ANY HISTORY OF CARDIAC ISSUES OR EVENTS? :NO DO YOU HAVE SLEEP APNEA? :NO ANY RECENT HEAD INJURY? :NO DO YOU HAVE ANY NEW INFECTIONS? :NO IS THERE A CHANCE YOU COULD BE ? :NO ARE YOU BREAST FEEDING? :NO WHEN DID YOU LAST EAT? : -12/07/19 1800 WHEN DID YOU LAST DRINK? : -12/08/19 0900 WHAT DID YOU LAST DRINK? : -SIP WATER WITH MEDICATIONS NAME OF PERSON DRIVING YOU HOME? : -JUAN F (BROTHER) DO YOU HAVE ANY OTHER QUESTIONS OR CONCERNS? : -NO CURRENT MEDICATIONS TAKING LISINOPRIL-HYDROCHLOROTHIAZIDE 20-12.5 MG TABLET 1 TABLET ORALLY ONCE A DAY, NOTES: 12/08/19 0900 TAKING METFORMIN HCL 500 MG TABLET 1 TABLET WITH MEALS ORALLY BID, NOTES: 12/07/19 1800 TAKING NASAL SALINE 0.65 % SOLUTION 2 DROPS IN EACH NOSTRIL NEEDED NASALLY EVERY 2 HRS, NOTES: 12/07/19 2300 TAKING TYLENOL PM EXTRA STRENGTH 500-25 MG TABLET 1 TABLET AT BEDTIME NEEDED ORALLY ONCE A DAY, NOTES: 12/07/19 2100 TAKING METOPROLOL TARTRATE 25 MG TABLET 2 TABLET WITH FOOD ORALLY TWICE A DAY, NOTES: 12/08/19 0900 TAKING TRAMADOL HCL 50 MG TABLET 1 TABLET NEEDED ORALLY EVERY 6 HRS MDD4, NOTES: 12/07/19 1800 TAKING HYDROCODONE-ACETAMINOPHEN 7.5-325 MG TABLET 1-2 ORALLY Q4-6H MDD8 PRN FOR PAIN, NOTES: 12/07/19 2200 TAKING LIDODERM 5 % PATCH 1 PATCH TO INTACT SKIN REMOVE AFTER 12 HOURS EXTERNALLY LOW BACK ONCE A DAY ON12 HR OFF 12H, NOTES: 12/06/19 TAKING LOVASTATIN 20 MG TABLET 1 TABLET WITH THE EVENING MEAL ORALLY ONCE A DAY, NOTES: 12/07/191999 NOT-TAKING LOPRESSOR 100 MG TABLET 1 TABLET ORALLY ONCE DAILY NOT-TAKING CO-ENZYME [id number] E 200-400 MG-UNIT WAFER DIRECTED ORALLY DAILY NOT-TAKING PENTOXIFYLLINE ER 400 MG TABLET EXTENDED RELEASE 1 TABLET WITH MEALS ORALLY DAILY NOT-TAKING VERAPAMIL HCL ER 240 MG CAPSULE EXTENDED RELEASE 24 HOUR 1 CAPSULE TOPICALLY WITH VITAMIN E OIL RUB ON PLAQUE DAILY ONCE A DAY NOT-TAKING VERAPAMIL HCL ER 240 MG CAPSULE EXTENDED RELEASE 24 HOUR 1 CAPSULE TOPICALLY ONCE A DAY NOT-TAKING COLCHICINE 0.6 MG TABLET 1 TABLET ORALLY ONCE A DAY NOT-TAKING POTABA 500 MG CAPSULE 4 CAPSULES WITH MEALS ORALLY SIX TIMES A DAY MEDICATION LIST REVIEWED AND RECONCILED WITH THE PATIENT PAST MEDICAL HISTORY POST LAMINECTOMY SYNDROME HYPERTENSION CHRONIC PAIN DM II ALLERGIES CATS, RAGWEED SURGICAL HISTORY BACK SURGERY (2) CYST RENMOVED FROM LEFT WRIST 1992 REPAIR TESTICLE 1989 FAMILY HISTORY FATHER: ALIVE MOTHER: ALIVE, DIAGNOSED WITH DIABETES, HYPERTENSION 1 BROTHER(S) , 1 SISTER(S) - HEALTHY. 1 SON(S) , 1 DAUGHTER(S) - HEALTHY. UNCLE - - LIVER DISEASE. SOCIAL HISTORY GENERAL: TOBACCO USE ARE YOU A:LIGHT TOBACCO SMOKER ADDITIONAL FINDINGS: TOBACCO USER SMOKES CIGARS AND NOT READY TO QUIT SMOKING CESSATION INFORMATION GIVEN06/10/2017 LATEX QUESTIONNAIRE LATEX ALLERGY : HAVE YOU EVER DEVELOPED ANY TYPE OF REACTION AFTER HANDLING LATEX PRODUCTS SUCH RUBBER GLOVES, CONDOMS, DIAPHRAGMS, BALLOONS, SOCKS, OR UNDERWEAR?NO LATEX ALLERGY : HAVE YOU EVER DEVELOPED ANY TYPE OF REACTION DURING OR AFTER DENTAL APPOINTMENT, VAGINAL/RECTAL EXAMINATION, SURGICAL PROCEDURE, OR ANY OTHER EXPOSURE?NO LATEX RISK : HAVE YOU EVER HAD ANY DIFFICULTY BREATHING OR HIVES AFTER EATING OR HANDLING ANY FRUITS, OR VEGETABLES; SUCH KIWI, BANANAS, STONE FRUITS, OR CHESTNUTSNO LATEX RISK : DO YOU HAVE A PREVIOUS PERSONAL HISTORY OF MORE THAN NINE SURGERIES, SPINA BIFIDA, OR REPEATED CATHERIZATIONS? NO LATEX RISK : ARE YOU FREQUENTLY EXPOSED TO LATEX PRODUCTS IN YOUR OCCUPATION?NO DATE ASKED : 12/07/2019 RECREATIONAL DRUG USE DRUG USE?NO EPISCOPALIAN [id number] NONE NO TENRIISM BELIEFS THAT WOULD IMPACT HEALTH CARE. LANGUAGE LANGUAGES SPOKEN:SWEDISH LEARNING BARRIERS / SPECIAL NEEDS BARRIERS TO LEARNING?NO HEARING IMPAIRED?NO VISION IMPAIRED?NO COGNITIVELY IMPAIRED?NO READINESS TO LEARN?YES LEARNING PREFERENCES?NO LEARNING CAPABILITIES PRESENT?YES EMOTIONAL BARRIERS?NO DOMESTIC VIOLENCE DO YOU FEEL SAFE IN YOUR ENVIRONMENT?YES OCCUPATION: DISABLED. DIET: REGULAR. EXERCISE: WALKS. MARITAL STATUS: . OTHERS AT HOME: SPOUSE, CHILDREN. PAIN CLINIC PFS, CLERGY, PUBLIC HEALTH REFERRALS PFS REFERRAL NEEDED?NO CLERGY REFERRAL NEEDED?NO PUBLIC HEALTH REFERRAL NEEDED?NO WAS THE PROVIDER NOTIFIED OF ANY PERTINENT INFO?YES HAS THE PATIENT BEEN EDUCATED REGARDING HIS/HER PLAN OF CARE?YES HAS THE PATIENT BEEN EDUCATED REGARDING PAIN, THE RISK FOR PAIN, THE IMPORTANCE OF EFFECTIVE PAIN MANAGEMENT, AND THE PAIN ASSESSMENT PROCESS?YES HOUSING: OWNS HOME. ADVANCE DIRECTIVE ADVANCE DIRECTIVE DISCUSSED WITH PATIENT:YES PT HAS NO ADVANCED DIRECTIVES, DECLINES HCP INFORMATION OR ASSISTANCE AT THIS TIME PAT DONE 09/28/2019 DS. HOSPITALIZATION/MAJOR DIAGNOSTIC PROCEDURE SURGERY RELATED VITAL SIGNS WT 190.2 LBS, HT 71", BMI 26.52 INDEX, BP 144/100 MM HG, REPEAT BP 130/95MANUAL, HR 95 /MIN, RR 18 /MIN, TEMP 96.7 F, OXYGEN SAT % 95%, SAFE IN ENV? (Y/N) YES, NA INITIALS SC 09:55, REVIEWED BY: GRISELDA RECHECK PT'S BP. EXAMINATION GENERAL EXAMINATION: THE PATIENT IS ALERT, ORIENTED TIMES THREE AND COOPERATIVE. HEART SHOWS REGULAR RHYTHM, NO MURMURS AND NO GALLOPS. LUNGS ARE CLEAR TO AUSCULTATION. ASSESSMENTS SPONDYLOSIS OF LUMBAR REGION WITHOUT MYELOPATHY OR RADICULOPATHY - M47.816 (PRIMARY) SPONDYLOSIS OF LUMBOSACRAL REGION WITHOUT MYELOPATHY OR RADICULOPATHY - M47.817 LUMBAR POST-LAMINECTOMY SYNDROME - M96.1 TREATMENT SPONDYLOSIS OF LUMBAR REGION WITHOUT MYELOPATHY OR RADICULOPATHY SMC FACET BLOCK (PAIN)[id number] MEDICATION: VALIUM TAB 10MG ORALLY (DIAZEPAM)TRAMAINE BOLDEN 12/08/2019 10:54:46 AM > VERIFIED JOSÉ ANTONIO HANSEN RN 12/08/2019 10:57:55 AM > LOT [id number]. EXP. 07/15. GIVEN 1056. MEDICATION: OXYCODONE HCL TAB 10MG ORALLYTRAMAINE BOLDEN 12/08/2019 10:55:07 AM > VERIFIED JOSÉ ANTONIO HANSEN RN 12/08/2019 10:58:45 AM > LOT [id number]. EXP. 06/2021. GIVEN 1056. PROCEDURES PAIN NURSING RECORD PRE-PROCEDURE IV SITE N/A PROCEDURE IN ROOM 1125, PHYSICIAN IN ROOM 1145, START 1150, FINISH 1155, PHYSICIAN OUT OF ROOM 1158, OUT OF ROOM 1202, STEROID KENALOG, O2 RA, ECG NORMAL SINUS, PATIENT SHIELDED YES, SAFETY STRAP YES, PREP CHLOROPREP Priscilla HANSEN RN, IV INFUSED N/A, DRESSING TEGADERM DR. MEDRANO LOC: 1015, 1. ALERT, ORIENTED 1030 1. ALERT, ORIENTED, 1045 1. ALERT, ORIENTED, 1100 1. ALERT, ORIENTED, 1115 1. ALERT, ORIENTED, 1130 2. DROWSY, RESPONDS APPROPRIATELY, 1137 2. DROWSY, RESPONDS APPROPRIATELY, 1152 1. ALERT, ORIENTED, 1207 1. ALERT, ORIENTED, 1220, 1. ALERT, ORIENTED RESP: 1015, 1. REGULAR, NO DYSPNEA 1030 1. REGULAR, NO DYSPNEA, 1045 1. REGULAR, NO DYSPNEA, 1100 1. REGULAR, NO DYSPNEA, 1115 1. REGULAR, NO DYSPNEA, 1130 1. REGULAR, NO DYSPNEA, 1137 1. REGULAR, NO DYSPNEA, 1152 1. REGULAR, NO DYSPNEA, 1207 1. REGULAR, NO DYSPNEA, 1220, 1. REGULAR, NO DYSPNEA COLOR: 1015, 1. PINK 1030 1. PINK, 1045 1. PINK, 1100 1. PINK, 1115 1. PINK, 1130 1. PINK, 1137 1. PINK, 1152 1. PINK, 1207 1. PINK, 1220, 1. PINK SKIN: 1015, 1. WARM, DRY 1030 1. WARM, DRY, 1045 1. WARM, DRY, 1100 1. WARM, DRY, 1115 1. WARM, DRY, 1130 1. WARM, DRY, 1137 1. WARM, DRY, 1152 1. WARM, DRY, 1207 1. WARM, DRY, 1220, 1. WARM, DRY POSITION: 1015, 2. SUPINE 1030 2. SUPINE, 1045 2. SUPINE, 1100 2. SUPINE, 1115 2. SUPINE, 1130 1. PRONE, 1137 1. PRONE, 1152 1. PRONE, 1207 4. OTHER, - SITTING 1220 4. OTHER - SITTING VITALS: 1105 139/102 96% 1115 140/99 95% 1130 134/90 72-16 97% 1136 144/95 72-16 98% 1152 148/90 79-16 95% 1205 151/106 76-16 99% 1214 144/99 DISCHARGE: POST PAIN 09/01, DRESSING SITE DRY AND INTACT, IV N/A, GAIT STEADY, TEACHING COMPLETED, PATIENT ACKNOWLEDGES UNDERSTANDING YES, PATIENT DISCHARGED AT 1220 PN WORKMANS' COMP OPINION IN YOUR OPINION, WAS THE INCIDENT THAT THE PATIENT DESCRIBED THE COMPETENT MEDICAL CAUSE OF THIS INJURY/ILLNESS? YES ARE THE PATIENT'S COMPLAINTS CONSISTENT WITH HIS/HER HISTORY OF THE INJURY/ILLNESS? YES IS THE PATIENT'S HISTORY OF THE INJURY/ILLNESS CONSISTENT WITH YOUR OBJECTIVE FINDING? YES WHAT IS THE PERCENTAGE OF TEMPORARY IMPAIRMENT? MODERATE TO MARKED = 66.7% . IS THE PATIENT WORKING? NO . DOCTOR ON SITE: AKIRA PINK MD PN LUMBAR FACET BLOCK THERAPEUTIC PRE PROCEDURE DIAGNOSIS LUMBAR SPONDYLOSIS, LUMBOSACRAL SPONDYLOSIS, POST LAMINECTOMY PAIN SYNDROME POST PROCEDURE DIAGNOSIS LUMBAR SPONDYLOSIS, LUMBOSACRAL SPONDYLOSIS, POST LAMINECTOMY PAIN SYNDROME PROCEDURE BILATERAL L4-L5 AND BILATERAL L5-S1 LUMBAR FACET THERAPEUTIC BLOCK SURGEON DR. AKIRA MEDRANO CHIEF KNOWLEDGE OFFICER NONE ANESTHESIA LOCAL PRE PROCEDURE NOTE THE PATIENT HAS A HISTORY OF CHRONIC LOW BACK PAIN. I EVALUATED THE PATIENT AND REVIEWED THE CHART. I WENT OVER THE RISKS, ALTERNATIVES, AND BENEFITS ASSOCIATED WITH THIS PROCEDURE. I DISCUSSED THAT THE USE OF STEROIDS MAY CONTRIBUTE TO IMMUNOSUPPRESSION OF THE PATIENT'S BODY AGAINST INFECTIONS SUCH COVID-19. THE PATIENT IS AWARE OF THE POTENTIAL COMPLICATIONS ASSOCIATED WITH THIS VIRUS, INCLUDING, BUT NOT LIMITED TO, . I DISCUSSED THE USE OF DEXAMETHASONE INSTEAD OF KENALOG; HOWEVER, THE PATIENT WOULD LIKE TO MOVE FORWARD WITH KENALOG. THE PATIENT WOULD LIKE TO PROCEED AND GIVES CONSENT TO PERFORM THE PROCEDURE. THE PATIENT DENIES UNEXPLAINABLE WEIGHT LOSS, FEVER, CHILLS, OR NEW CHANGES IN URINARY OR BOWEL CONTROL. THE PATIENT IS COVID-19 NEGATIVE DESCRIPTION OF PROCEDURE THE PATIENT WAS BROUGHT TO THE PROCEDURE ROOM AND PLACED IN THE PRONE POSITION. THE LUMBOSACRAL AREA WAS CLEANED WITH CHLORAPREP SOLUTION AND DRAPED ASEPTICALLY. THE PROCEDURE WAS DONE UNDER STERILE CONDITIONS. A TIMEOUT WAS PERFORMED WHERE LATERALITY AND THE SITE OF THE PROCEDURE WERE CHECKED AND CONFIRMED WITH EVERYONE IN THE ROOM. UNDER FLUOROSCOPIC GUIDANCE, THE TARGET POINT WAS SELECTED AT THE RIGHT AND LEFT L4-L5 AND RIGHT AND LEFT L5-S1 FACET JOINTS. TARGET POINT WAS SELECTED AFTER LATERAL ROTATION AND TILT OF THE MAGNIFIER OF THE C-ARM. LIDOCAINE 0.5% WAS USED TO NUMB THE SKIN AND THE SUBCUTANEOUS TISSUE BELOW IT. SPINAL NEEDLES, 22-GAUGE, WERE ADVANCED UNDER FLUOROSCOPIC GUIDANCE AND FOLLOWING PATIENT FEEDBACK UNTIL THE TARGETS WERE TOUCHED. THE POSITION OF THE NEEDLES WAS VERIFIED WITH AP AND LATERAL VIEWS. AFTER PROPER POSITION OF THE NEEDLES WAS ACHIEVED, ISOVUE-M DYE 30%, 0.1 ML, WAS INJECTED SHOWING ADEQUATE SPREAD OF THE DYE. KENALOG 20 MG WAS INJECTED AT EACH SITE. THEN, A SOLUTION OF 1.0 ML OF BUPIVACAINE 0.125% OF WAS USED TO FLUSH EACH SITE. THE MEDICATION WAS VERIFIED WITH THE NURSE. THERE WAS NO EVIDENCE OF BLOOD, PARESTHESIA OR CEREBROSPINAL FLUID DURING THE PROCEDURE. THE PATIENT WAS SENT TO THE RECOVERY ROOM. THE PATIENT WAS MOVING THE EXTREMITIES AND DOING WELL. THERE WERE NO COMPLICATIONS DURING THE PROCEDURE. ESTIMATED BLOOD LOSS WAS LESS THAN 5 ML. FLUOROSCOPY TIME WAS 27 SECONDS POST PROCEDURE NOTE THE PATIENT WILL BE SEEN IN A FOLLOW UP IN THE NEXT FEW WEEKS. I AM LOOKING FOR LONG LASTING RELIEF FOR THE PATIENT WITH THIS INTERVENTION. INSTRUCTIONS WERE GIVEN, QUESTIONS WERE ANSWERED, AND THE PATIENT EXPRESSED UNDERSTANDING AND AGREES WITH THE PLAN. THE PATIENT IS AWARE TO STAY HOME FOR THE NEXT WEEK, IF POSSIBLE, DUE TO COVID-19. I, VAIBHAV LEE, DOCUMENTED THE ABOVE INFORMATION ACTING A SCRIBE FOR DR. MEDRANO. I HAVE REVIEWED THE ABOVE DOCUMENT, WRITTEN BY VAIBHAV LEE, SPOUTING INSTALLER, AND I VERIFY THAT IT IS ACCURATE PROCEDURE CODES 04869 INJ PARAVERT F JNT L/S 1 LEV, MODIFIERS: 50 [id number] INJ PARAVERT F JNT L/S 2 LEV, MODIFIERS: 50 DISPOSITION & COMMUNICATION FOLLOW UP F/UP WITH OUTPATIENT PHYSICAL THERAPIST (REASON: W/C POST LFBT LENIN L4-L5, L5-S1) ELECTRONICALLY SIGNED BY AKIRA MEDRANO MD, MD ON 12/09/2019 AT 05:27 PM EDT DISCLAIMER : THIS IS A VISIT SUMMARY EXTRACTED FROM THE [facility] CHART. IT IS NOT A COPY OF THE [facility] PROGRESS NOTE. MTDD
== END ==
LOC: M PAIN 09:45
PROVIDERS: ATTEND Anesthesiology
DX: M47.816 Spondylosis without myelopathy or radiculopathy, lumbar region (principal); M47.817 Spondylosis without myelopathy or radiculopathy, lumbosacral region; M96.1 Postlaminectomy syndrome, not elsewhere classified
CPT/HCPCS: 64493; 64494; J3301; Q9967

== ENCOUNTER → 2020-01-24 | Outpatient (CLI) | payer OTHER, MEDICARE ==
[~2020-01-24] MED LIST changes: -BUPIVACAINE HCL 0.25% 30ML VIAL As Ordered ONE; -ISOVUE-M 300 61% 15ML VIAL As Ordered ONE; -LIDOCAINE 1% SDV 30ML VIAL As Ordered ONE; -TRIAMCINOLONE ACETONIDE SUSP 40 MG/ML VIAL (J3301) As Ordered ONE; -diazePAM 5 MG TAB As Ordered ONE; -oxyCODONE 5MG TAB As Ordered ONE
== END ==
LOC: M PAIN 13:33
PROVIDERS: ATTEND Nurse Practitioner Family
DX: M51.16 Intervertebral disc disorders with radiculopathy, lumbar region (principal); Z79.891 Long term (current) use of opiate analgesic

== ENCOUNTER → 2020-02-08 | Outpatient (CLI) | payer OTHER, MEDICARE | LOC: M LABSMTC 11:51 | PROVIDERS: ATTEND Anesthesiology | DX: Z20.828 Contact with and (suspected) exposure to other viral communicable diseases (principal) ==

== ENCOUNTER → 2020-02-09 | Outpatient (CLI) | payer OTHER, MEDICARE ==
[~2020-02-09] MED LIST changes: +ISOVUE-M 300 61% 15ML VIAL As Ordered ONE; +LIDOCAINE 1% SDV 30ML VIAL As Ordered ONE; +diazePAM 5 MG TAB As Ordered ONE; +methylPREDNISolone SUSP 40MG/ML 1ML VIAL (DEPO MEDROL) As Ordered ONE; +oxyCODONE 5MG TAB As Ordered ONE
--- NOTE | 2020-02-24 09:39 | REP ---
FLUORO GUIDANCE FOR NEEDLE PLACEMENT: The images were reviewed with Dr. Mcclure. The patient has a history of pain. The portable C-ARM was provided in the OR for Dr. Wilfredo Irving for fluoroscopic guidance. Two intraoperative last image hold fluoro spot films were obtained for needle placement verification for caudal epidural injection. The films are on the [employer] system and are available for review. 8 seconds of fluoroscopy time was utilized for this procedure. KEMI
== END ==
LOC: M PAIN 13:28
PROVIDERS: ATTEND Anesthesiology
DX: M96.1 Postlaminectomy syndrome, not elsewhere classified (principal)

== ENCOUNTER → 2020-05-15 | Outpatient (CLI) | payer OTHER, MEDICARE ==
[~2020-05-15] MED LIST changes: -ISOVUE-M 300 61% 15ML VIAL As Ordered ONE; -LIDOCAINE 1% SDV 30ML VIAL As Ordered ONE; -diazePAM 5 MG TAB As Ordered ONE; -methylPREDNISolone SUSP 40MG/ML 1ML VIAL (DEPO MEDROL) As Ordered ONE; -oxyCODONE 5MG TAB As Ordered ONE
--- NOTE | 2020-05-23 01:06 | ECWPNPC ---
PATIENT NAME: PIERRE RIVAS : 1975 GENDER: MALE VISIT DATE: 05/15/2020 DISCHARGE DATE: 05/15/20 1511 VISIT LOCKED DATE TIME: PHYSICIAN: STANISLAV MIDDLETON RESOURCE: STANISLAV MIDDLETON REASON FOR APPOINTMENT 1. MEDICATION MANAGEMENT HISTORY OF PRESENT ILLNESS GENERAL: BEING SEEN TODAY FOR POST PROCEDURE FOLLOW-UP. HAD CAUDAL EPIDURAL STEROID INJECTION ON 02/09/2020. REPORTING MARKED REDUCTION IN PAIN AND IMPROVED ACTIVITY TOLERANCE FOR APPROXIMATELY 3 MONTHS. PAIN IS GRADUALLY RETURNING TO BASELINE. MEDICATION IS SOMEWHAT HELPFUL AT REDUCING PAIN AND KEEPING HIM FUNCTIONAL. DENIES ADVERSE SIDE EFFECTS OF MEDICATION. BRINGS IN HIS MEDICATION WHICH IS APPROPRIATE FOR WHAT WAS DISPENSED. THIS IS A WORK RELATED INJURY. -. FALL RISK SCREENING: SCREENING :TWO OR MORE FALLS WITHOUT INJURY IN THE PAST YEAR DISCUSSED PREVIOUSLY PAIN SCREENING: PATIENT HAS A COMPLAINT OF ACUTE OR CHRONIC PAIN :YES LOCATION OF PAIN:LOW BACK, LEG(S), OTHER: BUTTOCKS, LEGS: RIGHT>LEFT INTENSITY OF PAIN (SCALE OF 1 TO 10):6 WHAT DOES YOUR PAIN FEEL LIKE:CONTINOUS, SHARP, THROBBING, SHOOTING DURATION:CONTINOUS, CONSTANT, ALL DAY PAIN IS INCREASED BY:ACTIVITIES, OTHERS STAYING IN ONE POSITION TOO LONG PAIN IS DECREASED BY:USE OF PAIN MEDICATIONS, OTHERS INJECTIONS NURSING NOTE: -. PAIN CENTER INTAKE QUESTIONS: DO YOU HAVE A HISTORY OF MRSA? :NO DO YOU TAKE A BLOOD THINNERS? :NO DO YOU HAVE ANY BLEEDING DISORDERS? :NO ANY NEW NUMBNESS OR WEAKNESS IN YOUR LEGS OR ARMS? :NO ANY PACEMAKER,DEFIBRILLATOR, OR DORSAL COLUMN STIMULATOR? :NO DO YOU HAVE ANY RASHES OR OPEN SORES? :NO ARE YOU ALLERGIC TO IV DYE? :NO ARE YOU DIABETIC? :YES TYPE 2 ANY NEW PROBLEMS WITH YOUR MEDICATIONS? :NO HAVE YOU RECEIVED A VACCINE IN THE PAST 30 DAYS? :NO DO YOU PLAN TO RECEIVE A VACCINE IN THE NEXT 21 DAYS? :NO DO YOU NEED ANY PRESCRIPTION? :NO DO YOU TAKE ANY IMMUNOSUPPRESSIVE MEDICATIONS? :NO IS THERE A CHANCE YOU COULD BE ? :NO ARE YOU BREAST FEEDING? :NO CURRENT MEDICATIONS TAKING LISINOPRIL-HYDROCHLOROTHIAZIDE 20-12.5 MG TABLET 1 TABLET ORALLY ONCE A DAY TAKING METFORMIN HCL 500 MG TABLET 1 TABLET WITH MEALS ORALLY BID TAKING NASAL SALINE 0.65 % SOLUTION 2 DROPS IN EACH NOSTRIL NEEDED NASALLY EVERY 2 HRS TAKING TYLENOL PM EXTRA STRENGTH 500-25 MG TABLET 1 TABLET AT BEDTIME NEEDED ORALLY ONCE A DAY TAKING METOPROLOL TARTRATE 50 MG TABLET 1 TABLET WITH FOOD ORALLY DAILY TAKING TRAMADOL HCL 50 MG TABLET 1 TABLET NEEDED ORALLY EVERY 6 HRS MDD4 TAKING LIDODERM 5 % PATCH 1 PATCH TO INTACT SKIN REMOVE AFTER 12 HOURS EXTERNALLY LOW BACK ONCE A DAY ON12 HR OFF 12H TAKING LOVASTATIN 20 MG TABLET 1 TABLET WITH THE EVENING MEAL ORALLY ONCE A DAY TAKING HYDROCODONE-ACETAMINOPHEN 7.5-325 MG TABLET 1-2 ORALLY Q4-6H MDD8 PRN FOR PAIN TAKING PIOGLITAZONE HCL 30 MG TABLET 1 TABLET ORALLY ONCE A DAY NOT-TAKING LOPRESSOR 100 MG TABLET 1 TABLET ORALLY ONCE DAILY NOT-TAKING CO-ENZYME R96-IMMLROB E 200-400 MG-UNIT WAFER DIRECTED ORALLY DAILY NOT-TAKING PENTOXIFYLLINE ER 400 MG TABLET EXTENDED RELEASE 1 TABLET WITH MEALS ORALLY DAILY NOT-TAKING VERAPAMIL HCL ER 240 MG CAPSULE EXTENDED RELEASE 24 HOUR 1 CAPSULE TOPICALLY WITH VITAMIN E OIL RUB ON PLAQUE DAILY ONCE A DAY NOT-TAKING VERAPAMIL HCL ER 240 MG CAPSULE EXTENDED RELEASE 24 HOUR 1 CAPSULE TOPICALLY ONCE A DAY NOT-TAKING COLCHICINE 0.6 MG TABLET 1 TABLET ORALLY ONCE A DAY NOT-TAKING POTABA 500 MG CAPSULE 4 CAPSULES WITH MEALS ORALLY SIX TIMES A DAY MEDICATION LIST REVIEWED AND RECONCILED WITH THE PATIENT PAST MEDICAL HISTORY POST LAMINECTOMY SYNDROME HYPERTENSION CHRONIC PAIN DM II ALLERGIES CATS, RAGWEED SURGICAL HISTORY BACK SURGERY (2) CYST RENMOVED FROM LEFT WRIST 1992 REPAIR TESTICLE 1989 FAMILY HISTORY FATHER: ALIVE MOTHER: ALIVE, DIAGNOSED WITH HYPERTENSION, DIABETES 1 BROTHER(S) , 1 SISTER(S) - HEALTHY. 1 SON(S) , 1 DAUGHTER(S) - HEALTHY. UNCLE - - LIVER DISEASE. SOCIAL HISTORY GENERAL: TOBACCO USE ARE YOU A:LIGHT TOBACCO SMOKER READY TO QUIT - DISCUSSED WITH PCP ADDITIONAL FINDINGS: TOBACCO USER SMOKES CIGARS SMOKING CESSATION INFORMATION GIVEN05/15/2020 LATEX QUESTIONNAIRE LATEX ALLERGY : HAVE YOU EVER DEVELOPED ANY TYPE OF REACTION AFTER HANDLING LATEX PRODUCTS SUCH RUBBER GLOVES, CONDOMS, DIAPHRAGMS, BALLOONS, SOCKS, OR UNDERWEAR?NO LATEX ALLERGY : HAVE YOU EVER DEVELOPED ANY TYPE OF REACTION DURING OR AFTER DENTAL APPOINTMENT, VAGINAL/RECTAL EXAMINATION, SURGICAL PROCEDURE, OR ANY OTHER EXPOSURE?NO LATEX RISK : HAVE YOU EVER HAD ANY DIFFICULTY BREATHING OR HIVES AFTER EATING OR HANDLING ANY FRUITS, OR VEGETABLES; SUCH KIWI, BANANAS, STONE FRUITS, OR CHESTNUTSNO LATEX RISK : DO YOU HAVE A PREVIOUS PERSONAL HISTORY OF MORE THAN NINE SURGERIES, SPINA BIFIDA, OR REPEATED CATHERIZATIONS? NO LATEX RISK : ARE YOU FREQUENTLY EXPOSED TO LATEX PRODUCTS IN YOUR OCCUPATION?NO DATE ASKED : 12/07/2019 ALCOHOL SCREENING DID YOU HAVE A DRINK CONTAINING ALCOHOL IN THE PAST YEAR?YES HOW OFTEN DID YOU HAVE A DRINK CONTAINING ALCOHOL IN THE PAST YEAR?TWO TO FOUR TIMES A MONTH (2 POINTS) HOW MANY DRINKS DID YOU HAVE ON A TYPICAL DAY WHEN YOU WERE DRINKING IN THE PAST YEAR?1 OR 2 (0 POINTS) HOW OFTEN DID YOU HAVE SIX OR MORE DRINKS ON ONE OCCASION IN THE PAST YEAR?NEVER (0 POINTS) POINTS2 INTERPRETATIONNEGATIVE RECREATIONAL DRUG USE DRUG USE?NO AMISH [id number] NONE NO MORAVIAN BELIEFS THAT WOULD IMPACT HEALTH CARE. LANGUAGE LANGUAGES SPOKEN:YI LEARNING BARRIERS / SPECIAL NEEDS CHANGE FROM LAST VISIT?NO BARRIERS TO LEARNING?NO HEARING IMPAIRED?NO VISION IMPAIRED?NO COGNITIVELY IMPAIRED?NO READINESS TO LEARN?YES LEARNING PREFERENCES?NO LEARNING CAPABILITIES PRESENT?YES EMOTIONAL BARRIERS?NO SPECIAL DEVICES?NO LACQUER COATER NEEDED?NO OCCUPATION: DISABLED. DIET: REGULAR. EXERCISE: WALKS. MARITAL STATUS: . OTHERS AT HOME: SPOUSE, CHILDREN. PAIN CLINIC PFS, CLERGY, PUBLIC HEALTH REFERRALS PFS REFERRAL NEEDED?NO CLERGY REFERRAL NEEDED?NO PUBLIC HEALTH REFERRAL NEEDED?NO WAS THE PROVIDER NOTIFIED OF ANY PERTINENT INFO?YES HAS THE PATIENT BEEN EDUCATED REGARDING HIS/HER PLAN OF CARE?YES HAS THE PATIENT BEEN EDUCATED REGARDING PAIN, THE RISK FOR PAIN, THE IMPORTANCE OF EFFECTIVE PAIN MANAGEMENT, AND THE PAIN ASSESSMENT PROCESS?YES HOUSING: OWNS HOME. ADVANCE DIRECTIVE ADVANCE DIRECTIVE DISCUSSED WITH PATIENT:YES PT HAS NO ADVANCED DIRECTIVES, DECLINES HCP INFORMATION OR ASSISTANCE AT THIS TIME HOSPITALIZATION/MAJOR DIAGNOSTIC PROCEDURE SURGERY RELATED REVIEW OF SYSTEMS CONSTITUTIONAL: ANY RECENT FEVER NO . CHILLS NO . WEIGHT CHANGE OF UNKNOWN REASONS NO . GASTROENTEROLOGY: NEW UNEXPLAINABLE CHANGES IN BOWEL CONTROL NO . CONSTIPATION NO . GENITOURINARY: ANY NEW CHANGE IN BLADDER CONTROL? NO . NEUROLOGY: NEW ONSET DIZZINESS OR NEUROLOGICAL CHANGES NOT MENTIONED NO . NEW NUMBNESS OR PAIN PATTERNS NOT MENTIONED AND PERTINENT TO TODAY'S VISIT NO . CARDIOLOGY: NEW CHEST PRESSURE NO . NEW CHEST PAIN NO . RESPIRATORY: UNEXPLAINABLE COUGH NO . NEW SHORTNESS OF BREATH NO . VITAL SIGNS WT 201.2 LBS, HT 71", BMI 28.06 INDEX, BP 143/91 MM HG, HR 80 /MIN, RR 18 /MIN, TEMP 95.7 F, OXYGEN SAT % 94%, SAFE IN ENV? (Y/N) YES, NA INITIALS OK 14:39, REVIEWED BY: JSJ. ELIGIO RN. EXAMINATION GENERAL EXAMINATION: GENERAL ALERT,NO DISTRESS. PSYCH AFFECT NORMAL. LUNGS: LUNG SOUNDS ARE CLEAR. HEART: HEART RATE REGULAR. MUSCULOSKELETAL: MUSCLE STRENGTH TESTING 4/5 RIGHT--5/5 LEFT, PALPATION: POSITIVE FOR PAIN OVER L/S SPINE. POSITIVE FOR PAIN OVER L/S PARSPINALS.SPECIFIC POINT TENDERNESS OVER BILAT. L4/5-L5/S1 FACETS. LUMBAR:MODIFIED STRAIGHT LEG EXAM POSITIVE AT 45 LEFT GREATER THAN RIGHT . DIAGNOSTIC TESTS REVIEWED MRI L/S SPINE-2017. ASSESSMENTS OTHER CHRONIC PAIN - G89.29 (PRIMARY) INTERVERTEBRAL DISC DISORDERS WITH RADICULOPATHY, LUMBAR REGION - M51.16 TREATMENT OTHER CHRONIC PAIN PAIN PROCEDURE LOGDATE OF PROCEDURE02/09/20PROCEDURE:CAUDAL EPIDURAL STEROID INJECTIONAMOUNT OF PRE SEDATEVALIUM 10 MG & OXYCODONE 10 MGRESULT:IMPROVEMENT 2 MONTHS THEN PAIN GRADUALLY RETURNED TO BASELINE NOTES: WORKMEN'S COMP REQUEST CAUDAL EPIDURAL STEROID INJECTION. PROCEDURES PN WORKMANS' COMP OPINION IN YOUR OPINION, WAS THE INCIDENT THAT THE PATIENT DESCRIBED THE COMPETENT MEDICAL CAUSE OF THIS INJURY/ILLNESS? YES ARE THE PATIENT'S COMPLAINTS CONSISTENT WITH HIS/HER HISTORY OF THE INJURY/ILLNESS? YES IS THE PATIENT'S HISTORY OF THE INJURY/ILLNESS CONSISTENT WITH YOUR OBJECTIVE FINDING? YES WHAT IS THE PERCENTAGE OF TEMPORARY IMPAIRMENT? MODERATE TO MARKED = 66.7% IS THE PATIENT WORKING? NO DOCTOR ON SITE: AKIRA PINK MD PROCEDURE CODES FA211 ESTABILISHED PATIENT [facility] CHARGE DISPOSITION & COMMUNICATION FOLLOW UP POSTPROCEDURE (REASON: WORKMEN'S COMP REQUEST CAUDAL EPIDURAL STEROID INJECTION) ELECTRONICALLY SIGNED BY ERIN GUTIÉRREZ ON 05/22/2020 AT 02:40 PM EST DISCLAIMER : THIS IS A VISIT SUMMARY EXTRACTED FROM THE [employer] CHART. IT IS NOT A COPY OF THE [employer] PROGRESS NOTE. KEMI
== END ==
LOC: M PAIN 14:30
PROVIDERS: ATTEND Nurse Practitioner Family
DX: G89.29 Other chronic pain (principal); M51.16 Intervertebral disc disorders with radiculopathy, lumbar region; E11.9 Type 2 diabetes mellitus without complications; F17.290 Nicotine dependence, other tobacco product, uncomplicated; Z79.84 Long term (current) use of oral hypoglycemic drugs; Z79.891 Long term (current) use of opiate analgesic; Z79.899 Other long term (current) drug therapy

== ENCOUNTER → 2020-09-07 | Outpatient (CLI) | payer OTHER, MEDICARE ==
--- NOTE | 2020-09-12 04:47 | ECWPNPC ---
PATIENT NAME: PIERRE RIVAS : 1975 GENDER: MALE VISIT DATE: 09/07/2020 DISCHARGE DATE: 09/07/20 1548 VISIT LOCKED DATE TIME: PHYSICIAN: STANISLAV MIDDLETON RESOURCE: STANISLAV MIDDLETON REASON FOR APPOINTMENT 1. MEDICATION MANAGEMENT/NEEDS UTOX HISTORY OF PRESENT ILLNESS GENERAL: HERE FOR FOLLOW-UP AND MEDICATION MANAGEMENT FOR CHRONIC LOW BACK PAIN WITH RIGHT LEG RADICULAR SYMPTOMS STATUS POST TWO LUMBAR SURGERIES IN THE PAST. MRI IMAGING OF THE LUMBAR SPINE IS REVIEWED AND SHOWING NERVE IMPINGEMENT OVER L4-5, L5-S1 NERVE ROOTS. PATIENT HAS RIGHT LEG RADICULAR SYMPTOMS ALONG DERMATOMES OF NERVE IMPINGEMENT REVIEWED IN MRI OF LUMBOSACRAL SPINE. HAS RESPONDED WELL TO CAUDAL EPIDURAL STEROID INJECTION WITH RESOLUTION OF RADICULOPATHY IN THE RIGHT LEG WELL IMPROVED LOW BACK PAIN. PATIENT REPORTS WEAKNESS OVER RIGHT LEG. THIS IS A WORK RELATED INJURY. -. FALL RISK SCREENING: SCREENING A FEW FALLS REPORTED IN THE LAST YEAR WITH INJURY. PATIENT DID NOT SEEK IMMEDIATE MEDICAL TREATMENT.. PAIN SCREENING: PATIENT HAS A COMPLAINT OF ACUTE OR CHRONIC PAIN :YES LOCATION OF PAIN:LOW BACK INTENSITY OF PAIN (SCALE OF 1 TO 10):7 WHAT DOES YOUR PAIN FEEL LIKE:ACHING, CONTINOUS, SHARP, TENDER, THROBBING, SORE DURATION:CONTINOUS, AWAKENS FROM SLEEP PAIN IS INCREASED BY:ACTIVITIES, PROLONGED STANDING PAIN IS DECREASED BY:USE OF PAIN MEDICATIONS, OTHERS INJECTIONS NURSING NOTE: -. CURRENT MEDICATIONS TAKING LISINOPRIL-HYDROCHLOROTHIAZIDE 20-12.5 MG TABLET 1 TABLET ORALLY ONCE A DAY TAKING METFORMIN HCL 500 MG TABLET 1 TABLET WITH MEALS ORALLY BID TAKING NASAL SALINE 0.65 % SOLUTION 2 DROPS IN EACH NOSTRIL NEEDED NASALLY EVERY 2 HRS TAKING TYLENOL PM EXTRA STRENGTH 500-25 MG TABLET 1 TABLET AT BEDTIME NEEDED ORALLY ONCE A DAY TAKING METOPROLOL TARTRATE 50 MG TABLET 1 TABLET WITH FOOD ORALLY DAILY TAKING LOVASTATIN 20 MG TABLET 1 TABLET WITH THE EVENING MEAL ORALLY ONCE A DAY TAKING PIOGLITAZONE HCL 30 MG TABLET 1 TABLET ORALLY ONCE A DAY TAKING TRAMADOL HCL 50 MG TABLET 1 TABLET NEEDED ORALLY EVERY 6 HRS MDD4 TAKING LIDODERM 5 % PATCH 1 PATCH TO INTACT SKIN REMOVE AFTER 12 HOURS EXTERNALLY LOW BACK ONCE A DAY ON12 HR OFF 12H TAKING HYDROCODONE-ACETAMINOPHEN 7.5-325 MG TABLET 1-2 ORALLY Q4-6H MDD8 PRN FOR PAIN TAKING NICOTINE STEP 1 21 MG/24HR PATCH 24 HOUR 1 PATCH TO SKIN TRANSDERMAL ONCE A DAY UNKNOWN LOPRESSOR 100 MG TABLET 1 TABLET ORALLY ONCE DAILY UNKNOWN CO-ENZYME [id number] E 200-400 MG-UNIT WAFER DIRECTED ORALLY DAILY UNKNOWN PENTOXIFYLLINE ER 400 MG TABLET EXTENDED RELEASE 1 TABLET WITH MEALS ORALLY DAILY UNKNOWN VERAPAMIL HCL ER 240 MG CAPSULE EXTENDED RELEASE 24 HOUR 1 CAPSULE TOPICALLY WITH VITAMIN E OIL RUB ON PLAQUE DAILY ONCE A DAY UNKNOWN VERAPAMIL HCL ER 240 MG CAPSULE EXTENDED RELEASE 24 HOUR 1 CAPSULE TOPICALLY ONCE A DAY UNKNOWN COLCHICINE 0.6 MG TABLET 1 TABLET ORALLY ONCE A DAY UNKNOWN POTABA 500 MG CAPSULE 4 CAPSULES WITH MEALS ORALLY SIX TIMES A DAY MEDICATION LIST REVIEWED AND RECONCILED WITH THE PATIENT PAST MEDICAL HISTORY POST LAMINECTOMY SYNDROME HYPERTENSION CHRONIC PAIN DM II ALLERGIES CATS, RAGWEED SOCIAL HISTORY GENERAL: TOBACCO USE ARE YOU A:FORMER SMOKER LATEX QUESTIONNAIRE LATEX ALLERGY : HAVE YOU EVER DEVELOPED ANY TYPE OF REACTION AFTER HANDLING LATEX PRODUCTS SUCH RUBBER GLOVES, CONDOMS, DIAPHRAGMS, BALLOONS, SOCKS, OR UNDERWEAR?NO LATEX ALLERGY : HAVE YOU EVER DEVELOPED ANY TYPE OF REACTION DURING OR AFTER DENTAL APPOINTMENT, VAGINAL/RECTAL EXAMINATION, SURGICAL PROCEDURE, OR ANY OTHER EXPOSURE?NO LATEX RISK : HAVE YOU EVER HAD ANY DIFFICULTY BREATHING OR HIVES AFTER EATING OR HANDLING ANY FRUITS, OR VEGETABLES; SUCH KIWI, BANANAS, STONE FRUITS, OR CHESTNUTSNO LATEX RISK : DO YOU HAVE A PREVIOUS PERSONAL HISTORY OF MORE THAN NINE SURGERIES, SPINA BIFIDA, OR REPEATED CATHERIZATIONS? NO LATEX RISK : ARE YOU FREQUENTLY EXPOSED TO LATEX PRODUCTS IN YOUR OCCUPATION?NO DATE ASKED : 09/07/2020 ALCOHOL USE: SOCIAL/OCCASIONAL. ALCOHOL SCREENING DID YOU HAVE A DRINK CONTAINING ALCOHOL IN THE PAST YEAR?YES HOW OFTEN DID YOU HAVE SIX OR MORE DRINKS ON ONE OCCASION IN THE PAST YEAR?NEVER (0 POINTS) HOW MANY DRINKS DID YOU HAVE ON A TYPICAL DAY WHEN YOU WERE DRINKING IN THE PAST YEAR?1 OR 2 (0 POINTS) HOW OFTEN DID YOU HAVE A DRINK CONTAINING ALCOHOL IN THE PAST YEAR?TWO TO FOUR TIMES A MONTH (2 POINTS) POINTS2 INTERPRETATIONNEGATIVE RECREATIONAL DRUG USE DRUG USE?NO CONFUCIANIST [id number] NONE NO CONFUCIANIST BELIEFS THAT WOULD IMPACT HEALTH CARE. LANGUAGE LANGUAGES SPOKEN:LUXEMBOURGISH LEARNING BARRIERS / SPECIAL NEEDS CHANGE FROM LAST VISIT?NO BARRIERS TO LEARNING?NO HEARING IMPAIRED?NO VISION IMPAIRED?NO COGNITIVELY IMPAIRED?NO READINESS TO LEARN?YES LEARNING PREFERENCES?NO LEARNING CAPABILITIES PRESENT?YES EMOTIONAL BARRIERS?NO SPECIAL DEVICES?NO OPTIMIZATION MANAGER NEEDED?NO OCCUPATION: DISABLED. DIET: REGULAR. EXERCISE: WALKS. MARITAL STATUS: . OTHERS AT HOME: SPOUSE, CHILDREN. - PFS REFERRAL NEEDED?NO CLERGY REFERRAL NEEDED?NO PUBLIC HEALTH REFERRAL NEEDED?NO WAS THE PROVIDER NOTIFIED OF ANY PERTINENT INFO?YES HAS THE PATIENT BEEN EDUCATED REGARDING HIS/HER PLAN OF CARE?YES HAS THE PATIENT BEEN EDUCATED REGARDING PAIN, THE RISK FOR PAIN, THE IMPORTANCE OF EFFECTIVE PAIN MANAGEMENT, AND THE PAIN ASSESSMENT PROCESS?YES HOUSING: OWNS HOME. ADVANCE DIRECTIVE ADVANCE DIRECTIVE DISCUSSED WITH PATIENT:YES PT HAS NO ADVANCED DIRECTIVES, DECLINES HCP INFORMATION OR ASSISTANCE AT THIS TIME REVIEW OF SYSTEMS CONSTITUTIONAL: ANY RECENT FEVER NO . CHILLS NO . WEIGHT CHANGE OF UNKNOWN REASONS NO . GASTROENTEROLOGY: NEW UNEXPLAINABLE CHANGES IN BOWEL CONTROL NO . CONSTIPATION NO . GENITOURINARY: ANY NEW CHANGE IN BLADDER CONTROL? NO . NEUROLOGY: NEW ONSET DIZZINESS OR NEUROLOGICAL CHANGES NOT MENTIONED NO . NEW NUMBNESS OR PAIN PATTERNS NOT MENTIONED AND PERTINENT TO TODAY'S VISIT NO . CARDIOLOGY: NEW CHEST PRESSURE NO . PATIENT DENIES NO . RESPIRATORY: UNEXPLAINABLE COUGH NO . NEW SHORTNESS OF BREATH NO . VITAL SIGNS WT 194.2 LBS, HT 71", BMI 27.08 INDEX, BP 145/84 MM HG, HR 71 /MIN, RR 18 /MIN, TEMP 95.0 F, OXYGEN SAT % 94%, SAFE IN ENV? (Y/N) YES, NA INITIALS AW 1458, REVIEWED BY: EDWARD TURCIOS MA. EXAMINATION GENERAL EXAMINATION: GENERALNO ACUTE DISTRESS, WELL NOURISHED AND HYDRATED. PSYCHAPPROPRIATE MOOD AND AFFECT . NECK:NO LYMPHADENOPATHY, SUPPLE. LUNGS:CLEAR TO AUSCULTATION BILATERALLY, NO WHEEZES, RHONCHI, RALES. HEART:NO MURMURS, REGULAR RATE AND RHYTHM. MUSCULOSKELETAL:MUSCLE STRENGTH TESTING 3/5 OVER RIGHT LEG AND 5/5 OVER LEFT LEG.MODIFIED SLE IS POSITIVE OVER RIGHT LEG AT 45 DEGREES. . LUMBAR:WELL-HEALED SURGICAL SCAR OVER L/S AXIS. TENDER WITH PALPATION OVER LUMBAR SPINE . NEUROLOGIC EXAM:REPORTS DECREASED SENSATION TO LIGHT TOUCH ON EXAM TODAY OVER RIGHT LEG .NORMAL SENSATION TO LIGHT TOUCH OVER LEFT LEG ON EXAM TODAY. . DIAGNOSTIC TESTS REVIEWED MRI L/S SPINE-2017. ASSESSMENTS LUMBOSACRAL RADICULOPATHY - M54.17 (PRIMARY) CHRONIC PRESCRIPTION OPIATE USE - Z79.891 TREATMENT LUMBOSACRAL RADICULOPATHY CLINICAL NOTES: PREPROCEDURE AND POST PROCEDURE INFORMATION PRINTED AND PROVIDED TO PATIENT. PATIENT VERBALIZED UNDERSTANDING. RAFIA TURCIOS MA. CHRONIC PRESCRIPTION OPIATE USE LAB: URINE TEST GROUP LIUDMILA LUNA 09/07/2020 3:44:03 PM > LAST DOSE : TRAMADOL 09/06/2020 @10PM, HYDROCODONE 09/07/2020 @10PM NOTES: CAUDAL EPIDURAL STEROID INJECTION. PROCEDURES PN WORKMANS' COMP OPINION IN YOUR OPINION, WAS THE INCIDENT THAT THE PATIENT DESCRIBED THE COMPETENT MEDICAL CAUSE OF THIS INJURY/ILLNESS? YES ARE THE PATIENT'S COMPLAINTS CONSISTENT WITH HIS/HER HISTORY OF THE INJURY/ILLNESS? YES IS THE PATIENT'S HISTORY OF THE INJURY/ILLNESS CONSISTENT WITH YOUR OBJECTIVE FINDING? YES WHAT IS THE PERCENTAGE OF TEMPORARY IMPAIRMENT? MODERATE TO MARKED = 66.7% IS THE PATIENT WORKING? NO DOCTOR ON SITE: AKIRA PINK MD DISPOSITION & COMMUNICATION FOLLOW UP POST (REASON: CAUDAL EPIDURAL STEROID INJECTION) ELECTRONICALLY SIGNED BY ERIN GUTIÉRREZ ON 09/11/2020 AT 02:28 PM EDT DISCLAIMER : THIS IS A VISIT SUMMARY EXTRACTED FROM THE [facility] CHART. IT IS NOT A COPY OF THE [facility] PROGRESS NOTE. KEMI
== END ==
LOC: M PAIN 14:45
PROVIDERS: ATTEND Nurse Practitioner Family
DX: M54.17 Radiculopathy, lumbosacral region (principal); M96.1 Postlaminectomy syndrome, not elsewhere classified; I10 Essential (primary) hypertension; G89.29 Other chronic pain; J30.1 Allergic rhinitis due to pollen; E11.9 Type 2 diabetes mellitus without complications; J30.81 Allergic rhinitis due to animal (cat) (dog) hair and dander; Z79.891 Long term (current) use of opiate analgesic; Z79.84 Long term (current) use of oral hypoglycemic drugs; Z79.899 Other long term (current) drug therapy; Z87.891 Personal history of nicotine dependence

== ENCOUNTER → 2020-11-14 | Outpatient (CLI) | payer OTHER, MEDICARE | LOC: M LABSMTC 12:42 | PROVIDERS: ATTEND Anesthesiology | DX: Z11.52 Encounter for screening for COVID-19 (principal) ==

== ENCOUNTER → 2020-11-19 | Outpatient (CLI) | payer OTHER, MEDICARE ==
[~2020-11-19] MED LIST changes: +ISOVUE-M 300 61% 15ML VIAL As Ordered ONE; +LIDOCAINE 1% SDV 30ML VIAL As Ordered ONE; +diazePAM 5MG TABLET As Ordered ONE; +methylPREDNISolone SUSP 40MG/ML 1ML VIAL (DEPO MEDROL) As Ordered ONE; +oxyCODONE 5MG TAB As Ordered ONE
--- NOTE | 2020-11-19 16:38 | REP ---
INDICATION: CAUDAL. COMPARISON: None. TECHNIQUE: Intraoperative fluoroscopic imaging using portable C-arm technique. FINDINGS: Catheter overlies midline sacrum via posterior approach. Total fluoroscopic time 11 seconds. IMPRESSION: Images consistent with sacral spine injection. <Electronically signed by Jair Cruz > 11/19/20 0679
--- NOTE | 2020-11-21 04:25 | ECWPNPC ---
PATIENT NAME: PIERRE RIVAS : 1975 GENDER: MALE VISIT DATE: 11/19/2020 DISCHARGE DATE: 11/19/20 1435 VISIT LOCKED DATE TIME: PHYSICIAN: AKIRA MEDRANO MD RESOURCE: AKIRA MEDRANO MD REASON FOR APPOINTMENT 1. CAUDAL EPIDURAL STEROID INJECTION HISTORY OF PRESENT ILLNESS GENERAL: -. FALL RISK SCREENING: SCREENING : TWO OR MORE FALLS REPORTED IN THE LAST YEAR - NO MAJOR INJURIES. PAIN SCREENING: PATIENT HAS A COMPLAINT OF ACUTE OR CHRONIC PAIN :YES LOCATION OF PAIN:LOW BACK INTENSITY OF PAIN (SCALE OF 1 TO 10):6 WHAT DOES YOUR PAIN FEEL LIKE:ACHING, THROBBING, SHOOTING DURATION:CONTINOUS, CONSTANT, ALL DAY PAIN IS INCREASED BY:ACTIVITIES PAIN IS DECREASED BY:USE OF PAIN MEDICATIONS, OTHERS LAYING DOWN NURSING NOTE: -. PAIN CENTER INTAKE QUESTIONS: DO YOU HAVE A HISTORY OF MRSA? :NO DO YOU TAKE A BLOOD THINNERS? :NO DO YOU HAVE ANY BLEEDING DISORDERS? :NO ANY NEW NUMBNESS OR WEAKNESS IN YOUR LEGS OR ARMS? :NO ANY PACEMAKER,DEFIBRILLATOR, OR DORSAL COLUMN STIMULATOR? :NO DO YOU HAVE ANY RASHES OR OPEN SORES? :NO ARE YOU ALLERGIC TO IV DYE? :NO ARE YOU DIABETIC? :YES TYPE 2 ANY NEW PROBLEMS WITH YOUR MEDICATIONS? :NO HAVE YOU RECEIVED A VACCINE IN THE PAST 30 DAYS? :NO DO YOU PLAN TO RECEIVE A VACCINE IN THE NEXT 21 DAYS? :NO DO YOU TAKE ANY IMMUNOSUPPRESSIVE MEDICATIONS? :NO ANY HISTORY OF SEIZURES? :NO ANY HISTORY OF CARDIAC ISSUES OR EVENTS? :NO DO YOU HAVE ANY KIDNEY OR LIVER DISEASE? :NO DO YOU HAVE SLEEP APNEA? :NO ANY RECENT HEAD INJURY? :NO DO YOU HAVE ANY NEW INFECTIONS? :NO IS THERE A CHANCE YOU COULD BE ? :NO ARE YOU BREAST FEEDING? :NO WHEN DID YOU LAST EAT? : 11/18/20 WHEN DID YOU LAST DRINK? : 11/19/20 1030 WHAT DID YOU LAST DRINK? : WATER NAME OF PERSON DRIVING YOU HOME? : BROTHER OR DO YOU HAVE ANY OTHER QUESTIONS OR CONCERNS? : - CURRENT MEDICATIONS TAKING LISINOPRIL-HYDROCHLOROTHIAZIDE 20-12.5 MG TABLET 1 TABLET ORALLY ONCE A DAY, NOTES: 11/18/20 TAKING METFORMIN HCL 500 MG TABLET 1 TABLET WITH MEALS ORALLY BID, NOTES: 11/18/20 TAKING NASAL SALINE 0.65 % SOLUTION 2 DROPS IN EACH NOSTRIL NEEDED NASALLY EVERY 2 HRS TAKING TYLENOL PM EXTRA STRENGTH 500-25 MG TABLET 1 TABLET AT BEDTIME NEEDED ORALLY ONCE A DAY TAKING METOPROLOL TARTRATE 50 MG TABLET 1 TABLET WITH FOOD ORALLY BID, NOTES: 11/19/20 1030 TAKING LOVASTATIN 20 MG TABLET 1 TABLET WITH THE EVENING MEAL ORALLY ONCE A DAY TAKING PIOGLITAZONE HCL 30 MG TABLET 1 TABLET ORALLY ONCE A DAY, NOTES: 11/19/20 1030 TAKING TRAMADOL HCL 50 MG TABLET 1 TABLET NEEDED ORALLY EVERY 6 HRS MDD4, NOTES: 11/18/20 TAKING NICOTINE STEP 1 21 MG/24HR PATCH 24 HOUR 1 PATCH TO SKIN TRANSDERMAL ONCE A DAY TAKING HYDROCODONE-ACETAMINOPHEN 7.5-325 MG TABLET 1-2 ORALLY Q4-6H MDD8 PRN FOR PAIN, NOTES: 11/18/20 TAKING LIDODERM 5 % PATCH 1 PATCH TO INTACT SKIN REMOVE AFTER 12 HOURS EXTERNALLY LOW BACK ONCE A DAY ON12 HR OFF 12H NOT-TAKING LOPRESSOR 100 MG TABLET 1 TABLET ORALLY ONCE DAILY NOT-TAKING CO-ENZYME [id number] E 200-400 MG-UNIT WAFER DIRECTED ORALLY DAILY NOT-TAKING PENTOXIFYLLINE ER 400 MG TABLET EXTENDED RELEASE 1 TABLET WITH MEALS ORALLY DAILY NOT-TAKING VERAPAMIL HCL ER 240 MG CAPSULE EXTENDED RELEASE 24 HOUR 1 CAPSULE TOPICALLY WITH VITAMIN E OIL RUB ON PLAQUE DAILY ONCE A DAY NOT-TAKING VERAPAMIL HCL ER 240 MG CAPSULE EXTENDED RELEASE 24 HOUR 1 CAPSULE TOPICALLY ONCE A DAY NOT-TAKING COLCHICINE 0.6 MG TABLET 1 TABLET ORALLY ONCE A DAY NOT-TAKING POTABA 500 MG CAPSULE 4 CAPSULES WITH MEALS ORALLY SIX TIMES A DAY MEDICATION LIST REVIEWED AND RECONCILED WITH THE PATIENT PAST MEDICAL HISTORY POST LAMINECTOMY SYNDROME HYPERTENSION CHRONIC PAIN DM II ALLERGIES CATS, RAGWEED SOCIAL HISTORY GENERAL: TOBACCO USE ARE YOU A:FORMER SMOKER LATEX QUESTIONNAIRE LATEX ALLERGY : HAVE YOU EVER DEVELOPED ANY TYPE OF REACTION AFTER HANDLING LATEX PRODUCTS SUCH RUBBER GLOVES, CONDOMS, DIAPHRAGMS, BALLOONS, SOCKS, OR UNDERWEAR?NO LATEX ALLERGY : HAVE YOU EVER DEVELOPED ANY TYPE OF REACTION DURING OR AFTER DENTAL APPOINTMENT, VAGINAL/RECTAL EXAMINATION, SURGICAL PROCEDURE, OR ANY OTHER EXPOSURE?NO LATEX RISK : HAVE YOU EVER HAD ANY DIFFICULTY BREATHING OR HIVES AFTER EATING OR HANDLING ANY FRUITS, OR VEGETABLES; SUCH KIWI, BANANAS, STONE FRUITS, OR CHESTNUTSNO LATEX RISK : DO YOU HAVE A PREVIOUS PERSONAL HISTORY OF MORE THAN NINE SURGERIES, SPINA BIFIDA, OR REPEATED CATHERIZATIONS? NO LATEX RISK : ARE YOU FREQUENTLY EXPOSED TO LATEX PRODUCTS IN YOUR OCCUPATION?NO DATE ASKED : 11/14/2020 ALCOHOL USE: SOCIAL/OCCASIONAL. ALCOHOL SCREENING DID YOU HAVE A DRINK CONTAINING ALCOHOL IN THE PAST YEAR?YES HOW OFTEN DID YOU HAVE SIX OR MORE DRINKS ON ONE OCCASION IN THE PAST YEAR?NEVER (0 POINTS) HOW MANY DRINKS DID YOU HAVE ON A TYPICAL DAY WHEN YOU WERE DRINKING IN THE PAST YEAR?1 OR 2 (0 POINTS) HOW OFTEN DID YOU HAVE A DRINK CONTAINING ALCOHOL IN THE PAST YEAR?TWO TO FOUR TIMES A MONTH (2 POINTS) POINTS2 INTERPRETATIONNEGATIVE RECREATIONAL DRUG USE DRUG USE?NO UATSDIN [id number] NONE NO UATSDIN BELIEFS THAT WOULD IMPACT HEALTH CARE. LANGUAGE LANGUAGES SPOKEN:CHINESE LEARNING BARRIERS / SPECIAL NEEDS CHANGE FROM LAST VISIT?NO BARRIERS TO LEARNING?NO HEARING IMPAIRED?NO VISION IMPAIRED?NO COGNITIVELY IMPAIRED?NO READINESS TO LEARN?YES LEARNING PREFERENCES?NO LEARNING CAPABILITIES PRESENT?YES EMOTIONAL BARRIERS?NO SPECIAL DEVICES?NO STILL TENDER NEEDED?NO OCCUPATION: DISABLED. DIET: REGULAR. EXERCISE: WALKS. MARITAL STATUS: . OTHERS AT HOME: SPOUSE, CHILDREN. - PFS REFERRAL NEEDED?NO CLERGY REFERRAL NEEDED?NO PUBLIC HEALTH REFERRAL NEEDED?NO WAS THE PROVIDER NOTIFIED OF ANY PERTINENT INFO?YES HAS THE PATIENT BEEN EDUCATED REGARDING HIS/HER PLAN OF CARE?YES HAS THE PATIENT BEEN EDUCATED REGARDING PAIN, THE RISK FOR PAIN, THE IMPORTANCE OF EFFECTIVE PAIN MANAGEMENT, AND THE PAIN ASSESSMENT PROCESS?YES HOUSING: OWNS HOME. ADVANCE DIRECTIVE ADVANCE DIRECTIVE DISCUSSED WITH PATIENT:YES PT HAS NO ADVANCED DIRECTIVES, DECLINES HCP INFORMATION OR ASSISTANCE AT THIS TIME VITAL SIGNS WT 195.0 LBS, HT 71", BMI 27.19 INDEX, BP 127/85 MM HG, HR 84 /MIN, RR 18 /MIN, TEMP 96.0 F, OXYGEN SAT % 94%, BLOOD GLUCOSE LEVEL 130, NA INITIALS AW 1126FS @ HOME BY PT. EM. EXAMINATION GENERAL: THE PATIENT IS ALERT, ORIENTED TIMES THREE AND COOPERATIVE. LUNGS ARE CLEAR TO AUSCULTATION. HEART SHOWS REGULAR RHYTHM, NO MURMURS AND NO GALLOPS. ASSESSMENTS POST LAMINECTOMY SYNDROME - M96.1 (PRIMARY) TREATMENT POST LAMINECTOMY SYNDROME [facility] FLUORO GUIDE SPINE INJECTION (PAIN)[id number] MEDICATION: VALIUM TAB 10MG ORALLY (DIAZEPAM)MICH,MARGO 11/19/2020 1:17:24 PM > REVIEWED SIMONE COOPER 11/19/2020 1:19:16 PM > ADMINISTERED MEDICATION: OXYCODONE HCL TAB 10MG ORALLYMARGO EPPS 11/19/2020 1:17:37 PM > REVIEWED SIMONE COOPER 11/19/2020 1:19:39 PM > ADMINISTERED COMPLETION OF PROCEDURAL VISIT WHEN MEETS CRITERIA OTHERS NOTES: 11/14/20 1342 PAT COMPLETED. John DEL VALLE RN. PROCEDURES PAIN NURSING RECORD PROCEDURE IN ROOM 1345, PHYSICIAN IN ROOM 1404, START 1409, FINISH 1413, PHYSICIAN OUT OF ROOM 1418, OUT OF ROOM 1425, ECG NORMAL SINUS, PATIENT SHIELDED YES, SAFETY STRAP YES, PREP BETADINE Schuyler COOPER RN, DRESSING TEGADERM DR. MEDRANO LOC: 1. ALERT, ORIENTED RESP: 1. REGULAR, NO DYSPNEA COLOR: 1. PINK SKIN: 1. WARM, DRY POSITION: 1. PRONE VITALS: 1334 VITALS P 68 02 99% R18 BP 137/88 AW 1350 P 74 02 97% BP 138/87 R 18 AW , SIMONE COOPER 11/19/2020 1355:37 PM > 132/96 HR 76 16 97% R/A ALLISON MARY 11/19/2020 2:10:47 PM > 173/97 HR 76 16 97% R/A ,ALLISON MARY 11/19/2020 2:20:17 PM > 130/93 HRE 70 16 98% R/A , SIMONE COOPER 11/19/2020 2:30:57 PM > 137/95 HR 75 16 99% R/A D/C V/S COMPLETION OF PROCEDURE APPOINTMENT: POST PAIN 4, DRESSING SITE DRY AND INTACT, IV N/A, GAIT STEADY, TEACHING COMPLETED, PATIENT ACKNOWLEDGES UNDERSTANDING YES, PROCEDURE APPOINTMENT COMPLETED AT 1432 PN WORKMANS' COMP OPINION IN YOUR OPINION, WAS THE INCIDENT THAT THE PATIENT DESCRIBED THE COMPETENT MEDICAL CAUSE OF THIS INJURY/ILLNESS? YES ARE THE PATIENT'S COMPLAINTS CONSISTENT WITH HIS/HER HISTORY OF THE INJURY/ILLNESS? YES IS THE PATIENT'S HISTORY OF THE INJURY/ILLNESS CONSISTENT WITH YOUR OBJECTIVE FINDING? YES WHAT IS THE PERCENTAGE OF TEMPORARY IMPAIRMENT? MODERATE TO MARKED = 66.7% IS THE PATIENT WORKING? NO DOCTOR ON SITE: AKIRA PINK MD PN CAUDAL EPIDURALS PRE PROCEDURE DIAGNOSIS LUMBAR POST LAMINECTOMY PAIN SYNDROME POST PROCEDURE DIAGNOSIS LUMBAR POST LAMINECTOMY PAIN SYNDROME PROCEDURE CAUDAL EPIDURAL STEROID INJECTION SURGEON DR. AKIRA MEDRANO WOOD DRILLING MACHINE OPERATOR NONE ANESTHESIA LOCAL PRE PROCEDURE NOTE THE PATIENT HAS HISTORY OF CHRONIC LOW BACK PAIN. I EVALUATED THE PATIENT AND REVIEWED THE CHART. I WENT OVER THE RISKS, ALTERNATIVES, AND BENEFITS ASSOCIATED WITH THIS PROCEDURE. THE PATIENT WOULD LIKE TO PROCEED AND GIVE CONSENT TO PERFORMED THE PROCEDURE. THE PATIENT DENIES UNEXPLAINABLE WEIGHT LOSS, FEVER, CHILLS, OR NEW CHANGES IN URINARY OR BOWEL CONTROL. THE PATEINT IS COVID-19 NEGATIVE DESCRIPTION OF PROCEDURE THE PATIENT WAS BROUGHT TO THE PROCEDURE ROOM AND PLACED IN THE PRONE POSITION. THE LUMBOSACRAL AREA WAS CLEANED WITH BETADINE SOLUTION AND DRAPED ASEPTICALLY. THE PROCEDURE WAS DONE UNDER STERILE CONDITIONS. A TIMEOUT WAS PERFORMED WHERE THE CONSENTED SITE WAS VERIFIED WITH EVERYONE IN THE ROOM. UNDER FLUOROSCOPIC GUIDANCE, THE TARGET POINT WAS SELECTED AT THE EPIDURAL SPACE BELOW THE SACROCOCCYGEAL LIGAMENT. I CONFIRMED AGAIN THE SITE OF TARGET. LIDOCAINE 0.5% WAS USE TO NUMB THE SKIN AND THE SUBCUTANEOUS TISSUE BELOW IT. SPINAL NEEDLE, 22-GAUGE 3.5 INCH, WAS ADVANCED UNDER FLUOROSCOPIC GUIDANCE AND FOLLOWING PATIENT FEEDBACK UNTIL THE EPIDURAL SPACE WAS REACHED BY THE LOSS OF RESISTANCE TECHNIQUE. ISOVUE M DYE 30%, 0.25 ML, WAS INJECTED SHOWING ADEQUATE SPREAD OF THE DYE. THEN, A SOLUTION OF 6 ML OF NORMAL SALINE WITH DEPO-MEDROL 40 MG WAS INJECTED SLOWLY FOLLOWING THE PATIENT FEEDBACK. THERE WAS NO EVIDENCE OF BLOOD, PARESTHESIA OR CEREBROSPINAL FLUID DURING THE PROCEDURE. THE PATIENT WAS SENT TO THE RECOVERY ROOM. THE PATIENT WAS MOVING THE EXTREMITIES AND DOING WELL. THERE WAS NO COMPLICATION DURING THE PROCEDURE. ESTIMATED BLOOD LOSS LESS THAN 5 ML. FLUOROSCOPY TIME WAS 11 SECONDS POST PROCEDURE NOTE DEPENDING ON THE RESTULS, OTHER OPTIONS SHOULD BE CONSIDERED. THE PATIENT WILL BE SEEN IN A FOLLOW UP IN THE NEXT FEW WEEKS. I AM LOOKING FOR LONG LASTING RELIEF FOR THE PATIENT WITH THIS INTERVENTION. INSTRUCTIONS WERE GIVEN, QUESTIONS WERE ANSWERED, AND THE PATIENT EXPRESSED UNDERSTANDING AND AGREES WITH THE PLAN. I, VAIBHAV LEE, DOCUMENTED THE ABOVE INFORMATION ACTING A SCRIBE FOR DR. MEDRANO. I HAVE REVIEWED THE ABOVE DOCUMENT, WRITTEN BY VAIBHAV LEE, HEBREW CANTOR, AND I VERIFY THAT IT IS ACCURATE PROCEDURE CODES 91185 LUMBAR/SACRAL W/ IMAGING DISPOSITION & COMMUNICATION FOLLOW UP FOLLOW UP WITH CUSTOMER SUCCESS INTERN (REASON: POST CAUDAL EPIDURAL STEROID INJECTION) ELECTRONICALLY SIGNED BY AKIRA MEDRANO MD, MD ON 11/20/2020 AT 10:55 AM EDT DISCLAIMER : THIS IS A VISIT SUMMARY EXTRACTED FROM THE [facility] CHART. IT IS NOT A COPY OF THE [facility] PROGRESS NOTE. KEMI
== END ==
LOC: M PAIN 11:20
PROVIDERS: ATTEND Anesthesiology
DX: M96.1 Postlaminectomy syndrome, not elsewhere classified (principal); I10 Essential (primary) hypertension; G89.29 Other chronic pain; J30.1 Allergic rhinitis due to pollen; E11.9 Type 2 diabetes mellitus without complications; J30.81 Allergic rhinitis due to animal (cat) (dog) hair and dander; Z87.891 Personal history of nicotine dependence; Z79.84 Long term (current) use of oral hypoglycemic drugs; Z79.891 Long term (current) use of opiate analgesic; Z79.899 Other long term (current) drug therapy
CPT/HCPCS: 62323; J1030; Q9967

== ENCOUNTER → 2021-03-26 | Outpatient (CLI) | payer OTHER, MEDICARE ==
[~2021-03-26] MED LIST changes: -ISOVUE-M 300 61% 15ML VIAL As Ordered ONE; -LIDOCAINE 1% SDV 30ML VIAL As Ordered ONE; -diazePAM 5MG TABLET As Ordered ONE; -methylPREDNISolone SUSP 40MG/ML 1ML VIAL (DEPO MEDROL) As Ordered ONE; -oxyCODONE 5MG TAB As Ordered ONE
== END ==
LOC: M PAIN 13:00
PROVIDERS: ATTEND Anesthesiology
DX: G89.29 Other chronic pain (principal); M96.1 Postlaminectomy syndrome, not elsewhere classified; E11.9 Type 2 diabetes mellitus without complications; Z87.891 Personal history of nicotine dependence; Z79.84 Long term (current) use of oral hypoglycemic drugs; Z79.891 Long term (current) use of opiate analgesic; Z79.899 Other long term (current) drug therapy

== ENCOUNTER → 2021-07-01 | Outpatient (CLI) | payer OTHER, MEDICARE | LOC: M PAIN 14:00 | PROVIDERS: ATTEND Nurse Practitioner Family | DX: M96.1 Postlaminectomy syndrome, not elsewhere classified (principal); M47.816 Spondylosis without myelopathy or radiculopathy, lumbar region; E11.9 Type 2 diabetes mellitus without complications; Z87.891 Personal history of nicotine dependence; Z79.84 Long term (current) use of oral hypoglycemic drugs; Z79.891 Long term (current) use of opiate analgesic; Z79.899 Other long term (current) drug therapy ==

== ENCOUNTER → 2021-07-29 | Outpatient (CLI) | payer OTHER, MEDICARE | LOC: M PAIN 13:30 | PROVIDERS: ATTEND Nurse Practitioner Family | DX: M96.1 Postlaminectomy syndrome, not elsewhere classified (principal); M47.816 Spondylosis without myelopathy or radiculopathy, lumbar region; I10 Essential (primary) hypertension; G89.29 Other chronic pain; E11.9 Type 2 diabetes mellitus without complications; J30.1 Allergic rhinitis due to pollen; J30.81 Allergic rhinitis due to animal (cat) (dog) hair and dander; Z87.891 Personal history of nicotine dependence; Z79.84 Long term (current) use of oral hypoglycemic drugs; Z79.891 Long term (current) use of opiate analgesic; Z79.899 Other long term (current) drug therapy ==

== ENCOUNTER → 2021-08-26 | Outpatient (CLI) | payer OTHER, MEDICARE ==
[2021-08-26 13:13] LABS: BLOOD UREA NITROGEN 13 MG/DL (7-18); CALCIUM LEVEL 9.8 MG/DL (8.5-10.1); CARBON DIOXIDE LEVEL 31 MEQ/L (21-32); CHLORIDE LEVEL 107 MEQ/L (98-107); CREATININE FOR GFR 0.88 MG/DL (0.70-1.30); GLOMERULAR FILTRATION RATE > 60.0 (>60); GLUCOSE, FASTING 123 MG/DL (70-100); POTASSIUM SERUM 3.9 MEQ/L (3.5-5.1); SODIUM LEVEL 144 MEQ/L (136-145)
== END ==
LOC: M WUC 09:37
PROVIDERS: ATTEND Anesthesiology
DX: M96.1 Postlaminectomy syndrome, not elsewhere classified (principal)

== ENCOUNTER → 2021-09-16 | Outpatient (CLI) | payer OTHER ==
[~2021-09-16] MED LIST changes: +PROHANCE 279.3MG/ML 15ML VIAL As Ordered ONE; +PROHANCE 279.3MG/ML 5ML VIAL As Ordered ONE
== END ==
LOC: M RAD 12:45
PROVIDERS: ATTEND Nurse Practitioner Family
DX: M96.1 Postlaminectomy syndrome, not elsewhere classified (principal)
CPT/HCPCS: 72158; A9576

== ENCOUNTER → 2021-11-07 | Outpatient (CLI) | payer OTHER, MEDICARE ==
[~2021-11-07] MED LIST changes: -PROHANCE 279.3MG/ML 15ML VIAL As Ordered ONE; -PROHANCE 279.3MG/ML 5ML VIAL As Ordered ONE
== END ==
LOC: M PAIN 13:00
PROVIDERS: ATTEND Anesthesiology
DX: M96.1 Postlaminectomy syndrome, not elsewhere classified (principal); M51.16 Intervertebral disc disorders with radiculopathy, lumbar region; G89.29 Other chronic pain; I10 Essential (primary) hypertension; E11.9 Type 2 diabetes mellitus without complications; J30.81 Allergic rhinitis due to animal (cat) (dog) hair and dander; J30.1 Allergic rhinitis due to pollen; Z79.891 Long term (current) use of opiate analgesic; Z87.891 Personal history of nicotine dependence; Z79.899 Other long term (current) drug therapy

== ENCOUNTER → 2022-01-13 | Outpatient (CLI) | payer OTHER, MEDICARE | LOC: M LABSMTC 11:07 | PROVIDERS: ATTEND Anesthesiology | DX: Z01.812 Encounter for preprocedural laboratory examination (principal) ==

== ENCOUNTER → 2022-01-16 | Outpatient (CLI) | payer OTHER, MEDICARE ==
[~2022-01-16] MED LIST changes: +ISOVUE-M 300 61% 15ML VIAL As Ordered ONE; +LIDOCAINE 1% SDV 30ML VIAL As Ordered ONE; +diazePAM 5MG TABLET As Ordered ONE; +methylPREDNISolone SUSP 40MG/ML 1ML VIAL (DEPO MEDROL) As Ordered ONE; +oxyCODONE 5MG TAB As Ordered ONE
== END ==
LOC: M PAIN 14:30
PROVIDERS: ATTEND Anesthesiology
DX: M96.1 Postlaminectomy syndrome, not elsewhere classified (principal); G89.29 Other chronic pain; E11.9 Type 2 diabetes mellitus without complications; I10 Essential (primary) hypertension; Z87.891 Personal history of nicotine dependence; Z79.84 Long term (current) use of oral hypoglycemic drugs; Z79.899 Other long term (current) drug therapy
CPT/HCPCS: 62323; J1030; Q9967

== ENCOUNTER → 2022-03-03 | Outpatient (CLI) | payer OTHER, MEDICARE ==
[~2022-03-03] MED LIST changes: -ISOVUE-M 300 61% 15ML VIAL As Ordered ONE; -LIDOCAINE 1% SDV 30ML VIAL As Ordered ONE; -diazePAM 5MG TABLET As Ordered ONE; -methylPREDNISolone SUSP 40MG/ML 1ML VIAL (DEPO MEDROL) As Ordered ONE; -oxyCODONE 5MG TAB As Ordered ONE
== END ==
LOC: M PAIN 14:30
PROVIDERS: ATTEND Nurse Practitioner Family
DX: M47.816 Spondylosis without myelopathy or radiculopathy, lumbar region (principal); M47.817 Spondylosis without myelopathy or radiculopathy, lumbosacral region; M96.1 Postlaminectomy syndrome, not elsewhere classified; I10 Essential (primary) hypertension; G89.29 Other chronic pain; E11.9 Type 2 diabetes mellitus without complications; J30.1 Allergic rhinitis due to pollen; J30.81 Allergic rhinitis due to animal (cat) (dog) hair and dander; Z87.891 Personal history of nicotine dependence; Z79.891 Long term (current) use of opiate analgesic; Z79.84 Long term (current) use of oral hypoglycemic drugs; Z79.899 Other long term (current) drug therapy

== ENCOUNTER → 2022-05-05 | Outpatient (CLI) | payer OTHER, MEDICARE | LOC: M LABSMTC 11:44 | PROVIDERS: ATTEND Anesthesiology | DX: Z01.812 Encounter for preprocedural laboratory examination (principal); Z20.822 Contact with and (suspected) exposure to COVID-19 ==

== ENCOUNTER 2022-05-31 13:56 | Emergency (ER) | payer MEDICARE, OTHER ==
[~2022-05-31] VITALS: Ht 180.3 cm; Wt 81.8 kg
[2022-05-31] MEDS ORDERED: LOVA20TA2 (14:14)
[2022-05-31] MEDS ORDERED: PANT40TA29 (14:14)
[2022-05-31] MEDS ORDERED: PIOG1TAB37 (14:14)
[2022-05-31] MEDS ORDERED: ASPIRIN 81MG CHEW TABLET PO ONE (14:15)
[2022-05-31 14:45] LABS: BASO % 0.5 % (0.0-1.0); EOS # 0.2 10^3/uL (0.0-0.5); EOS % 2.6 % (0.0-3.0); HEMATOCRIT 33.5 % (42.0-52.0); HEMOGLOBIN 11.9 g/dl (13.5-17.5); LYMPH # 1.8 10^3/uL (1.5-5.0); LYMPH % 27.9 % (24.0-44.0); MEAN CORPUSCULAR HEMOGLOBIN 46.3 pg (27.0-33.0); MEAN CORPUSCULAR HGB CONC 35.5 g/dl (32.0-36.5); MONO # 0.5 10^3/uL (0.0-0.8); MONO % 8.1 % (2.0-8.0); NEUTROPHILS # 3.9 10^3/uL (1.5-8.5); NEUTROPHILS % 60.1 % (36.0-66.0); PLATELET COUNT, AUTOMATED 190 10^3/uL (150-450); RED BLOOD COUNT 2.57 10^6/uL (4.30-6.10); WHITE BLOOD COUNT 6.5 10^3/uL (4.0-10.0)
[2022-05-31 14:54] LABS: MEAN CORPUSCULAR VOLUME 130.4 fl (80.0-96.0)
[2022-05-31 14:57] LABS: LIPASE 63 U/L (12-53); MAGNESIUM LEVEL 1.2 MG/DL (1.8-2.4)
[2022-05-31 14:58] LABS: BILIRUBIN,DIRECT 0.7 MG/DL (<0.4)
[2022-05-31] MEDS ORDERED: MAGNESIUM OXIDE 400MG TAB (MAG-OX) PO ONE (15:00)
[2022-05-31] MEDS ORDERED: MAG SULF 1GM/100ML (MAG RUN) 1 GM in IV 1 EA IV ONE ×2 (15:00→16:05)
[2022-05-31 15:08] LABS: ALBUMIN 4.3 G/DL (3.2-5.2); ALKALINE PHOSPHATASE 104 U/L (46-116); ALT/SGPT 45 U/L (7.0-40); AST/SGOT 143 U/L (<34); BILIRUBIN,TOTAL 1.3 MG/DL (0.3-1.2); BLOOD UREA NITROGEN 15 MG/DL (9-23); CALCIUM LEVEL 9.2 MG/DL (8.5-10.1); CARBON DIOXIDE LEVEL 28 MMOL/L (20-31); CHLORIDE LEVEL 94 MMOL/L (98-107); CK-MB VALUE MASS < 1.0 NG/ML (<3.6); CPK CREATINE PHOSPHOKINASE 131 U/L (46-171); CREATININE FOR GFR 1.11 MG/DL (0.70-1.30); FREE T4 1.17 NG/DL (0.89-1.76); GLOMERULAR FILTRATION RATE > 60.0 (>60); GLUCOSE, FASTING 153 MG/DL (60-100); MB/CK RELATIVE INDEX 0.76 (< OR =4); POTASSIUM SERUM 3.8 MMOL/L (3.5-5.1); SODIUM LEVEL 137 MMOL/L (136-145); TOTAL PROTEIN 7.3 G/DL (5.7-8.2)
[2022-05-31 15:31] LABS: STOMATOCYTES 2+
[2022-05-31 15:33] LABS: PLATELET ESTIMATE NORMAL (NORMAL); POLYCHROMASIA 1+
[2022-05-31 17:36] LABS: CK-MB VALUE MASS < 1.0 NG/ML (<3.6)
[2022-05-31 17:37] LABS: CPK CREATINE PHOSPHOKINASE 85 U/L (46-171); MB/CK RELATIVE INDEX 1.17 (< OR =4)
[2022-05-31 19:19] LABS: ETHYL ALCOHOL (ETHANOL) 0.003 % (0.000-0.010); MAGNESIUM LEVEL 2.1 MG/DL (1.8-2.4)
[2022-05-31] MEDS ORDERED: MAGN400T2 PO (19:40)
[2022-05-31 19:45] VITALS: BP 116/72
[2022-05-31] MEDS ORDERED: SELE25SHA TOP (20:12)
== END 2022-05-31 20:28 | disposition home or self-care (01) ==
LOC: M ED 14:40
DX: E83.42 Hypomagnesemia (principal); R00.2 Palpitations; E11.9 Type 2 diabetes mellitus without complications; I10 Essential (primary) hypertension; K21.9 Gastro-esophageal reflux disease without esophagitis; F17.290 Nicotine dependence, other tobacco product, uncomplicated; Z79.84 Long term (current) use of oral hypoglycemic drugs; Z79.899 Other long term (current) drug therapy

== ENCOUNTER → 2022-06-19 | Outpatient (CLI) | payer OTHER, MEDICARE ==
[~2022-06-19] MED LIST changes: +LOVA20TA2; +MAGN400T2 PO; +PANT40TA29; +PIOG1TAB37; +SELE25SHA TOP
== END ==
LOC: M LABSMTC 11:17
PROVIDERS: ATTEND Anesthesiology
DX: Z01.818 Encounter for other preprocedural examination (principal)

== ENCOUNTER → 2022-06-24 | Outpatient (CLI) | payer OTHER, MEDICARE ==
[~2022-06-24] MED LIST changes: +BUPIVACAINE HCL 0.25% 30ML VIAL As Ordered ONE; +ISOVUE-M 300 61% 15ML VIAL As Ordered ONE; +LIDOCAINE 1% SDV 30ML VIAL As Ordered ONE; +TRIAMCINOLONE ACETONIDE SUSP 40MG/ML 1ML VIAL As Ordered ONE; +diazePAM 5MG TABLET As Ordered ONE; +oxyCODONE 5MG TAB As Ordered ONE
== END ==
LOC: M PAIN 14:30
PROVIDERS: ATTEND Anesthesiology
DX: M51.17 Intervertebral disc disorders with radiculopathy, lumbosacral region (principal); G89.29 Other chronic pain; E11.9 Type 2 diabetes mellitus without complications; I10 Essential (primary) hypertension; Z87.891 Personal history of nicotine dependence; Z79.84 Long term (current) use of oral hypoglycemic drugs; Z79.891 Long term (current) use of opiate analgesic; Z79.899 Other long term (current) drug therapy
CPT/HCPCS: 64493; 64494; J3301; S0020

== ENCOUNTER → 2022-07-10 | Outpatient (CLI) | payer OTHER, MEDICARE ==
[~2022-07-10] MED LIST changes: -BUPIVACAINE HCL 0.25% 30ML VIAL As Ordered ONE; -ISOVUE-M 300 61% 15ML VIAL As Ordered ONE; -LIDOCAINE 1% SDV 30ML VIAL As Ordered ONE; -TRIAMCINOLONE ACETONIDE SUSP 40MG/ML 1ML VIAL As Ordered ONE; -diazePAM 5MG TABLET As Ordered ONE; -oxyCODONE 5MG TAB As Ordered ONE
== END ==
LOC: M PAIN 10:45
PROVIDERS: ATTEND Anesthesiology
DX: M47.816 Spondylosis without myelopathy or radiculopathy, lumbar region (principal); M96.1 Postlaminectomy syndrome, not elsewhere classified; I10 Essential (primary) hypertension; E11.9 Type 2 diabetes mellitus without complications; J30.81 Allergic rhinitis due to animal (cat) (dog) hair and dander; J30.1 Allergic rhinitis due to pollen; G89.29 Other chronic pain; Z87.891 Personal history of nicotine dependence; Z79.891 Long term (current) use of opiate analgesic; Z79.84 Long term (current) use of oral hypoglycemic drugs; Z79.899 Other long term (current) drug therapy

== ENCOUNTER 2022-09-08 09:15 | Emergency (ER) | payer MEDICARE, OTHER ==
[~2022-09-08] VITALS: Ht 177.8 cm; Wt 90.9 kg
[2022-09-08 10:57] LABS: BASO # 0.1 10^3/uL (0.0-0.2); BASO % 1.1 % (0.0-1.0); EOS # 0.2 10^3/uL (0.0-0.5); EOS % 3.6 % (0.0-3.0); HEMATOCRIT 35.8 % (42.0-52.0); HEMOGLOBIN 12.4 g/dl (13.5-17.5); LYMPH # 1.8 10^3/uL (1.5-5.0); LYMPH % 38.8 % (24.0-44.0); MEAN CORPUSCULAR HEMOGLOBIN 43.4 pg (27.0-33.0); MEAN CORPUSCULAR HGB CONC 34.6 g/dl (32.0-36.5); MONO # 0.6 10^3/uL (0.0-0.8); MONO % 11.8 % (2.0-8.0); NEUTROPHILS % 43.8 % (36.0-66.0); PLATELET COUNT, AUTOMATED 145 10^3/uL (150-450); RED BLOOD COUNT 2.86 10^6/uL (4.30-6.10); WHITE BLOOD COUNT 4.7 10^3/uL (4.0-10.0)
[2022-09-08 11:01] LABS: MEAN CORPUSCULAR VOLUME 125.2 fl (80.0-96.0)
[2022-09-08 11:18] LABS: ALBUMIN 3.9 G/DL (3.2-5.2); ALKALINE PHOSPHATASE 75 U/L (46-116); ALT/SGPT 42 U/L (7.0-40); AST/SGOT 90 U/L (<34); BILIRUBIN,TOTAL 0.6 MG/DL (0.3-1.2); BLOOD UREA NITROGEN 24 MG/DL (9-23); CALCIUM LEVEL 9.1 MG/DL (8.5-10.1); CARBON DIOXIDE LEVEL 27 MMOL/L (20-31); CHLORIDE LEVEL 102 MMOL/L (98-107); GLOMERULAR FILTRATION RATE > 60.0 (>60); GLUCOSE, FASTING 150 MG/DL (60-100); MAGNESIUM LEVEL 1.4 MG/DL (1.8-2.4); SODIUM LEVEL 139 MMOL/L (136-145); TOTAL PROTEIN 6.9 G/DL (5.7-8.2)
[2022-09-08 11:40] LABS: AMPHETAMINES LEVEL URINE NEGATIVE (NEGATIVE); BARBITURATES URINE NEGATIVE (NEGATIVE); BENZODIAZEPINES URINE NEGATIVE (NEGATIVE); CANNABINOIDS URINE NEGATIVE (NEGATIVE); COCAINE METABOLITE URINE NEGATIVE (NEGATIVE); METHADONE URINE NEGATIVE (NEGATIVE); PHENCYCLIDINE URINE NEGATIVE (NEGATIVE)
[2022-09-08 11:50] LABS: OPIATES URINE POSITIVE (NEGATIVE)
[2022-09-08 12:00] LABS: FOLATE 5.22 NG/ML (>5.4); THYROID STIMULATING HORMONE 1.069 uIU/ML (0.55-4.78); VITAMIN B12 LEVEL 232 PG/ML (211-911)
[2022-09-08 12:01] LABS: HEMOGLOBIN A1c 5.8 % (4.0-6.0)
[2022-09-08] MEDS ORDERED: MAG SULF 1GM/100ML (MAG RUN) 1 GM in IV 1 EA IV ONE (14:15)
[2022-09-08] MEDS: MAG SULF 1GM/100ML (MAG RUN) 1 GM in IV 1 EA IV SCH ×2 (15:00→15:56)
[2022-09-08] MEDS ORDERED: ANEXSIA, NORCO 7.5MG/325MG TABLET(HYDROCODONE/APAP) PO ONE (15:35)
[2022-09-08] MEDS ORDERED: MAGN400T2 PO (16:26)
[2022-09-08 17:15] VITALS: BP 144/79
== END 2022-09-08 17:32 | disposition home or self-care (01) ==
LOC: M ED 09:15
DX: I63.9 Cerebral infarction, unspecified (principal); R42 Dizziness and giddiness; E11.9 Type 2 diabetes mellitus without complications; I10 Essential (primary) hypertension; E78.5 Hyperlipidemia, unspecified; F11.90 Opioid use, unspecified, uncomplicated; F17.210 Nicotine dependence, cigarettes, uncomplicated; Z79.84 Long term (current) use of oral hypoglycemic drugs; Z79.899 Other long term (current) drug therapy
CPT/HCPCS: 70450; 70544; 70551; 80053; 80307; 82077; 82607; 82746; 83036; 83735; 84443; 84484; 85025; 93005; 96365; 96366; 99285; J3475

== ENCOUNTER → 2022-10-03 | Outpatient (CLI) | payer OTHER, MEDICARE | LOC: M PAIN 15:45 | PROVIDERS: ATTEND Anesthesiology | DX: M47.816 Spondylosis without myelopathy or radiculopathy, lumbar region (principal); M96.1 Postlaminectomy syndrome, not elsewhere classified; G89.29 Other chronic pain; M54.50 Low back pain, unspecified; E11.9 Type 2 diabetes mellitus without complications; J30.1 Allergic rhinitis due to pollen; J30.81 Allergic rhinitis due to animal (cat) (dog) hair and dander; Z87.891 Personal history of nicotine dependence; Z79.84 Long term (current) use of oral hypoglycemic drugs; Z79.891 Long term (current) use of opiate analgesic; Z79.899 Other long term (current) drug therapy ==

== ENCOUNTER → 2022-11-11 | Outpatient (CLI) | payer OTHER, MEDICARE ==
[2022-11-13 11:02] LABS: DRVV SCREEN 49.9 SEC
[2022-11-13 11:53] LABS: PTT LUPUS TYPE ANTICOAG SCREEN 1.3 (0-1.2)
[2022-11-13 12:01] LABS: DRVV CONFIRM 39.5 SEC; LUPUS CONFIRM RATIO 1.1
[2022-11-13 12:04] LABS: NORMALIZED RATIO 1.18 (0.00-1.20)
[2022-11-18 06:09] LABS: ANCA-ATYPICAL <1:20 titer (Neg:<1:20); ANTI DS-DNA AB Negative (Negative); ANTI THROMBIN 3 FUNCT ACTIVITY 99 % (75-135); ANTINUCLEAR ANTIBODIES DIRECT Negative (Negative); CARDIOLIPIN IGA ANTIBODY <9 APL U/mL (0-11); CARDIOLIPIN IGG ANTIBODY <9 GPL U/mL (0-14); CARDIOLIPIN IGM ANTIBODY <9 MPL U/mL (0-12); CYTOPLASMIC NEUTROP AB ANCA-C <1:20 titer (Neg:<1:20); HOMOCYST(E)INE SERUM 163.1 umol/L (0.0-14.5); PERINUCLEAR AB ANCA-P <1:20 titer (Neg:<1:20); PROTEIN C ANTIGEN 106 % (60-150); PROTEIN S ANTIGEN FREE 225 % (61-136); PROTEIN S ANTIGEN TOTAL 160 % (60-150); SJOGREN'S ANTI SS-A <0.2 AI (0.0-0.9); SJOGREN'S ANTI SS-B <0.2 AI (0.0-0.9)
== END ==
LOC: M WUC 14:45
PROVIDERS: ATTEND Psychiatry & Neurology Neurology
DX: G45.9 Transient cerebral ischemic attack, unspecified (principal)

== ENCOUNTER → 2022-12-19 | Outpatient (CLI) | payer OTHER, MEDICARE ==
[~2022-12-19] MED LIST changes: +ISOVUE-M 300 61% 15ML VIAL As Ordered ONE; +LIDOCAINE 1% SDV 30ML VIAL As Ordered ONE; +diazePAM 5MG TABLET As Ordered ONE; +methylPREDNISolone SUSP 40MG/ML 1ML VIAL (DEPO MEDROL) As Ordered ONE; +oxyCODONE 5MG TAB As Ordered ONE
== END ==
LOC: M PAIN 09:30
PROVIDERS: ATTEND Anesthesiology
DX: M96.1 Postlaminectomy syndrome, not elsewhere classified (principal); I10 Essential (primary) hypertension; G89.29 Other chronic pain; E11.9 Type 2 diabetes mellitus without complications; Z79.84 Long term (current) use of oral hypoglycemic drugs; Z79.891 Long term (current) use of opiate analgesic; Z79.899 Other long term (current) drug therapy; Z87.891 Personal history of nicotine dependence; J30.81 Allergic rhinitis due to animal (cat) (dog) hair and dander; J30.1 Allergic rhinitis due to pollen
CPT/HCPCS: 62323; J1030; Q9967

== ENCOUNTER → 2023-04-03 | Outpatient (CLI) | payer OTHER, MEDICARE ==
[~2023-04-03] MED LIST changes: -ISOVUE-M 300 61% 15ML VIAL As Ordered ONE; -LIDOCAINE 1% SDV 30ML VIAL As Ordered ONE; -diazePAM 5MG TABLET As Ordered ONE; -methylPREDNISolone SUSP 40MG/ML 1ML VIAL (DEPO MEDROL) As Ordered ONE; -oxyCODONE 5MG TAB As Ordered ONE
== END ==
LOC: M PAIN 15:30
PROVIDERS: ATTEND Anesthesiology
DX: M96.1 Postlaminectomy syndrome, not elsewhere classified (principal); I10 Essential (primary) hypertension; G89.29 Other chronic pain; E11.9 Type 2 diabetes mellitus without complications; Z87.891 Personal history of nicotine dependence; Z79.84 Long term (current) use of oral hypoglycemic drugs; Z79.891 Long term (current) use of opiate analgesic; Z79.899 Other long term (current) drug therapy; J30.81 Allergic rhinitis due to animal (cat) (dog) hair and dander; J30.1 Allergic rhinitis due to pollen

== ENCOUNTER → 2023-04-22 | Outpatient (CLI) | payer OTHER, MEDICARE | LOC: M PAIN 13:15 | PROVIDERS: ATTEND Anesthesiology | DX: M96.1 Postlaminectomy syndrome, not elsewhere classified (principal); M47.816 Spondylosis without myelopathy or radiculopathy, lumbar region; G89.29 Other chronic pain; I10 Essential (primary) hypertension; E11.9 Type 2 diabetes mellitus without complications; Z87.891 Personal history of nicotine dependence; Z79.84 Long term (current) use of oral hypoglycemic drugs; Z79.891 Long term (current) use of opiate analgesic; Z79.899 Other long term (current) drug therapy; J30.1 Allergic rhinitis due to pollen; J30.81 Allergic rhinitis due to animal (cat) (dog) hair and dander ==

== ENCOUNTER → 2023-06-19 | Outpatient (CLI) | payer OTHER, MEDICARE ==
[~2023-06-19] MED LIST changes: +ISOVUE-M 300 61% 15ML VIAL As Ordered ONE; +LIDOCAINE 1% SDV 30ML VIAL As Ordered ONE; +diazePAM 5MG TABLET As Ordered ONE; +methylPREDNISolone SUSP 40MG/ML 1ML VIAL (DEPO MEDROL) As Ordered ONE; +oxyCODONE 5MG TAB As Ordered ONE
== END ==
LOC: M PAIN 11:00
PROVIDERS: ATTEND Anesthesiology
DX: M96.1 Postlaminectomy syndrome, not elsewhere classified (principal); I10 Essential (primary) hypertension; G89.29 Other chronic pain; E11.9 Type 2 diabetes mellitus without complications; Z87.891 Personal history of nicotine dependence; Z79.84 Long term (current) use of oral hypoglycemic drugs; Z79.891 Long term (current) use of opiate analgesic; Z79.899 Other long term (current) drug therapy
CPT/HCPCS: 62323; J1030; Q9967

== ENCOUNTER → 2023-07-23 | Outpatient (CLI) | payer OTHER, MEDICARE ==
[~2023-07-23] MED LIST changes: -ISOVUE-M 300 61% 15ML VIAL As Ordered ONE; -LIDOCAINE 1% SDV 30ML VIAL As Ordered ONE; -diazePAM 5MG TABLET As Ordered ONE; -methylPREDNISolone SUSP 40MG/ML 1ML VIAL (DEPO MEDROL) As Ordered ONE; -oxyCODONE 5MG TAB As Ordered ONE
== END ==
LOC: M PAIN 10:15
PROVIDERS: ATTEND Nurse Practitioner Family
DX: M96.1 Postlaminectomy syndrome, not elsewhere classified (principal); Z79.891 Long term (current) use of opiate analgesic; G89.29 Other chronic pain; I10 Essential (primary) hypertension; E11.9 Type 2 diabetes mellitus without complications; Z87.891 Personal history of nicotine dependence; Z79.84 Long term (current) use of oral hypoglycemic drugs; Z79.899 Other long term (current) drug therapy

== ENCOUNTER → 2023-08-24 | Outpatient (CLI) | payer OTHER, MEDICARE | LOC: M TMPAIN 16:30 → M PAIN 16:30 | PROVIDERS: ATTEND Nurse Practitioner Family | DX: M96.1 Postlaminectomy syndrome, not elsewhere classified (principal); Z79.891 Long term (current) use of opiate analgesic; G89.29 Other chronic pain; I10 Essential (primary) hypertension; E11.9 Type 2 diabetes mellitus without complications; Z87.891 Personal history of nicotine dependence; Z79.84 Long term (current) use of oral hypoglycemic drugs; Z79.899 Other long term (current) drug therapy ==

== ENCOUNTER → 2023-09-24 | Outpatient (CLI) | payer OTHER, MEDICARE | LOC: M TMPAIN 11:45 → M PAIN 11:45 | PROVIDERS: ATTEND Nurse Practitioner Family | DX: M96.1 Postlaminectomy syndrome, not elsewhere classified (principal); Z79.891 Long term (current) use of opiate analgesic; G89.29 Other chronic pain; I10 Essential (primary) hypertension; E11.9 Type 2 diabetes mellitus without complications; Z79.84 Long term (current) use of oral hypoglycemic drugs; Z79.899 Other long term (current) drug therapy ==

== ENCOUNTER → 2023-11-10 | Outpatient (CLI) | payer OTHER, MEDICARE | LOC: M PAIN 14:30 | PROVIDERS: ATTEND Nurse Practitioner Family | DX: M96.1 Postlaminectomy syndrome, not elsewhere classified (principal); G89.29 Other chronic pain; I10 Essential (primary) hypertension; E11.9 Type 2 diabetes mellitus without complications; Z87.891 Personal history of nicotine dependence ==

== ENCOUNTER → 2024-01-07 | Outpatient (CLI) | payer OTHER, MEDICARE ==
[~2024-01-07] MED LIST changes: +ISOVUE-M 300 61% 15ML VIAL As Ordered ONE; +LIDOCAINE 1% SDV 30ML VIAL As Ordered ONE; +dexAMETHasone 10MG/1ML VIAL PRES.FREE As Ordered ONE
== END ==
LOC: M PAIN 12:30
PROVIDERS: ATTEND Anesthesiology
DX: M96.1 Postlaminectomy syndrome, not elsewhere classified (principal); G89.29 Other chronic pain; I10 Essential (primary) hypertension; E11.9 Type 2 diabetes mellitus without complications; Z87.891 Personal history of nicotine dependence; Z79.84 Long term (current) use of oral hypoglycemic drugs; Z79.891 Long term (current) use of opiate analgesic; Z79.899 Other long term (current) drug therapy

== ENCOUNTER → 2024-01-13 | Outpatient (CLI) | payer OTHER ==
[~2024-01-13] MED LIST changes: -ISOVUE-M 300 61% 15ML VIAL As Ordered ONE; -LIDOCAINE 1% SDV 30ML VIAL As Ordered ONE; -dexAMETHasone 10MG/1ML VIAL PRES.FREE As Ordered ONE
== END ==
LOC: M PAIN 11:30
PROVIDERS: ATTEND Anesthesiology
DX: M96.1 Postlaminectomy syndrome, not elsewhere classified (principal); I10 Essential (primary) hypertension; G89.29 Other chronic pain; E11.9 Type 2 diabetes mellitus without complications; Z79.84 Long term (current) use of oral hypoglycemic drugs; Z79.899 Other long term (current) drug therapy; Z87.891 Personal history of nicotine dependence

== ENCOUNTER → 2024-02-23 | Outpatient (CLI) | payer OTHER | LOC: M PAIN 16:00 | PROVIDERS: ATTEND Anesthesiology | DX: M96.1 Postlaminectomy syndrome, not elsewhere classified (principal); G89.29 Other chronic pain; I10 Essential (primary) hypertension; E11.9 Type 2 diabetes mellitus without complications; Z87.891 Personal history of nicotine dependence; Z79.84 Long term (current) use of oral hypoglycemic drugs; Z79.899 Other long term (current) drug therapy ==

== ENCOUNTER → 2024-04-07 | Outpatient (CLI) | payer OTHER ==
[~2024-04-07] MED LIST changes: +ISOVUE-M 300 61% 15ML VIAL As Ordered ONE; +LIDOCAINE 1% SDV 30ML VIAL As Ordered ONE; +dexAMETHasone 10MG/1ML VIAL PRES.FREE As Ordered ONE; +diazePAM 5MG TABLET As Ordered ONE
== END ==
LOC: M PAIN 14:15
PROVIDERS: ATTEND Anesthesiology
DX: M96.1 Postlaminectomy syndrome, not elsewhere classified (principal); M51.16 Intervertebral disc disorders with radiculopathy, lumbar region; I10 Essential (primary) hypertension; G89.29 Other chronic pain; E11.9 Type 2 diabetes mellitus without complications; Z79.84 Long term (current) use of oral hypoglycemic drugs; Z79.899 Other long term (current) drug therapy; Z87.891 Personal history of nicotine dependence
CPT/HCPCS: 62323; J1100; Q9967

== ENCOUNTER → 2024-06-29 | Outpatient (CLI) | payer OTHER ==
[~2024-06-29] MED LIST changes: -ISOVUE-M 300 61% 15ML VIAL As Ordered ONE; -LIDOCAINE 1% SDV 30ML VIAL As Ordered ONE; -dexAMETHasone 10MG/1ML VIAL PRES.FREE As Ordered ONE; -diazePAM 5MG TABLET As Ordered ONE
== END ==
LOC: M PAIN 13:30
PROVIDERS: ATTEND Anesthesiology
DX: M96.1 Postlaminectomy syndrome, not elsewhere classified (principal); I10 Essential (primary) hypertension; E11.9 Type 2 diabetes mellitus without complications; G89.29 Other chronic pain; Z79.84 Long term (current) use of oral hypoglycemic drugs; Z79.899 Other long term (current) drug therapy; Z87.891 Personal history of nicotine dependence

== ENCOUNTER → 2024-07-25 | Outpatient (CLI) | payer OTHER | LOC: M WUC 11:33 | DX: M25.511 Pain in right shoulder (principal); M25.512 Pain in left shoulder ==